=== PATIENT | male | born 1935 | race Caucasian/White ===

== ENCOUNTER 2023-11-22 02:37 | Emergency (ER) | payer MEDICARE, SELFPAY ==
[2023-11-22 02:39] VITALS: BP 168/80; PULSE 55; RESP 17; TEMP 36.9; O2SAT 98; BMI 23.0
--- NOTE | 2023-11-22 03:04 | ED_ITS ---
HPI - Fall General Chief Complaint: Fall Stated Complaint: FALL/HEAD INJURY Time Seen by Provider: 11/22/23 02:48 Source: patient and caregiver Mode of arrival: ambulance Limitations: no limitations History of Present Illness HPI Narrative: 88-year-old male who is not on blood thinners is transferred from the [facility] care facility where he currently resides for evaluation of a head injury. According to the group home report the patient rolled out of bed. The patient arrives with an approximately 2.5 cm vertical laceration on the left side of his forehead. He denies any loss of consciousness. He has no neck pain he does complain of some pain in his sacral region stating that he fell on his buttocks as well. He denies any dizziness. He has not had any slurred speech or confusion. He is in Hospice currently and code status is DNR-CC. According to his family he has been failing cognitively and has lost a great deal of weight. Related Data Allergies Allergy/AdvReac Type Severity Reaction Status Date / Time No Known Drug Allergies Allergy Verified 11/22/23 02:43 Review of Systems ROS Status of ROS 10 or more systems reviewed and unremark able except as noted in history and below Exam Narrative Exam Narrative: Nurses note and vital signs reviewed and patient is not hypoxic. Blood pressure is noted be elevated at 168/80 and his pulses mildly bradycardic at 55 General: The patient appears well and in no apparent distress. Patient is resting comfortably on cart.GCS 15 Skin: Warm, dry, no pallor noted. There is no rash noted. Head: Normocephalic, atraumatic. There is a 2.5 cm somewhat superficial laceration vertically oriented on the left side of the forehead. This does not involve the eyebrows or eyes. Mild active bleeding noted Eye: Normal conjunctiva, no drainage, EOMI. PERRL. Vision is grossly intact. Ears, Nose, Mouth, and Throat: oral mucosa is moist. Nares patent. Mouth without vesicles. Ear canals patent. Tm's without Erythema Neck; no midline bony vertebral tenderness or step off Cardiovascular: Regular Rate and Rhythm S1S2, pulses are brisk and equal bilaterally Respiratory: Patient is in no distress, no accessory muscle use, lungs are clear to auscultation, no wheezing, rales or rhonchi Back: no midline bony vertebral tenderness or step-off, (pt declines to allow me to look at his buttocks or sacrum where he complained of pain) GI: Normal bowel sounds, no tenderness to palpation, no masses appreciated. No rebound, guarding, or rigidity noted. 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 is intact, no facial droop, upper and lower extremity strength and sensation is intact Psychiatric: Cooperative Constitutional Vital Signs, click to edit/add: Last Vital Signs Temp 98.5 F 11/22/23 02:39 Pulse 58 L 11/22/23 04:25 Resp 15 11/22/23 04:25 BP 150/88 H 11/22/23 04:25 Pulse Ox 98 11/22/23 04:25 O2 Del Method Room Air 11/22/23 04:25 Course Vital Signs Vital signs: Vital Signs Temperature 98.5 F 11/22/23 02:39 Pulse Rate 55 L 11/22/23 02:39 Respiratory Rate 17 11/22/23 02:39 Blood Pressure 168/80 H 11/22/23 02:39 Pulse Oximetry 98 11/22/23 02:39 Oxygen Delivery Method Room Air 11/22/23 02:39 Temperature 98.5 F 11/22/23 02:39 Pulse Rate 58 L 11/22/23 04:25 Respiratory Rate 15 11/22/23 04:25 Blood Pressure 150/88 H 11/22/23 04:25 Pulse Oximetry 98 11/22/23 04:25 Oxygen Delivery Method Room Air 11/22/23 04:25 MDM - Fall MDM Narrative Medical decision making narrative: Is 88-year-old male is transferred from the [facility] care facility where he currently resides for evaluation after he fell out of bed and struck his head on a bedside stand. He has an approximately 2.5 cm vertical laceration at the left forehead area. There was no loss of consciousness, vomiting or other additional injury. The patient is a DNR comfort care and hospice. His GCS was 15. CT scan of the brain and cervical spine was ordered per protocol and I reviewed the CT scan of the brain myself. I did not see any acute findings. The family wishes to take him back to the group home once the stitches were complete. I feel this is appropriate as his neuro exam is normal. He does not have any midline bony vertebral cervical spine tenderness. 6 stitches were placed into the laceration with good wound edge approximation and suture care was provided to the patient and family. CT scan of the brain and C spine were reviewed after he was discharged and do not show any acute findings. Medical Records Medical records narrative: The [address] [address] [address] Scan Report Signed Patient: KALYAN HERNANDEZ MR#: [id number] : 1935 Acct:[id number] Age/Sex: 88 / M ADM Date: 11/22/23 Loc: ER Attending Dr: Ordering Physician: Suzie Holloway Date of Service: 11/22/23 Procedure(s): CT head/brain wo con Accession Number(s): [id number] cc: Physician,Non-Staff M.Yvrose~ The [address] [address] Patient Name: KALYAN HERNANDEZ MRN: [id number] date: 1935 Sex: M Assigned Patient Location: ER Current Patient Location: Accession/Order Number: [id number] Exam Date: 11/22/2023 03:18 Report Date: 11/22/2023 05:11 At the request of: SUZIE HOLLOWAY Procedure: CT head/brain wo con EXAM: CT head/brain wo con, CT cervical spine wo con HISTORY: fall, head injury COMPARISON: None. TECHNIQUE: Nonenhanced CT imaging of the head and cervical spine was performed with sagittal and coronal reconstructions. Dose reduction techniques were achieved by using automated exposure control and/or adjustment of mA and/or kV according to patient size and/or use of iterative reconstruction technique. FINDINGS: CT HEAD: No intracranial hemorrhage, edema, mass effect or midline shift is seen. Age-related brain atrophy is noted. Severe nonspecific periventricular lucencies likely reflect chronic small vessel white matter ischemia. 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 The ventricles and extra-axial CSF spaces are unremarkable for age. The calvarium is intact. The paranasal sinuses and mastoid air cells appear clear. A small left frontal scalp hematoma is suggested on image [address] CERVICAL SPINE: No acute osseous or articular abnormality is seen. The cervical vertebral bodies are normal in height and alignment. 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 Skull base alignment is normal. The articular facets are normally aligned. There is multilevel degenerative facet arthrosis and uncovertebral joint hypertrophy resulting in multilevel bilateral neural foraminal narrowing. On the right, neural foraminal stenosis is mild at C3-C4, and fairly severe at C5-C6 and C6-C7. On the left, neural foraminal stenosis is mild at C2-C3 and C4-C5, and is moderately severe at C6-C7. No significant spinal canal stenosis is seen. Cerumen is incidentally noted in the right external auditory canal. Bilateral carotid arterial calcifications are noted. CT/CT head/brain wo con IMPRESSION: 1. Suspected small left frontal scalp hematoma, without underlying calvarial fracture or acute intracranial abnormality. Chronic intracranial findings are described above. 2. No acute cervical spine findings. Chronic changes are described above. Electronically authenticated by: ALVERTO ASIF Date: 11/22/2023 05:11 Discharge Plan Discharge Chief Complaint: Fall Clinical Impression: Sutured skin wound, Closed head injury, Forehead laceration Patient Disposition: Hospice - [facility] Time of Disposition Decision: 03:54 Condition: Good Additional Instructions: Sutures can be removed in 5-7 days. Use topical bacitracin and keep the laceration site covered with a Band-Aid. Discharge Date/Time: 11/22/23 04:25 Procedures ED Procedure Instructions Procedures Procedures: Procedure note: Forehead laceration repair; The patient's laceration was cleaned with Hibiclens and normal saline. The wound edges were infiltrated with 1 percent lidocaine with epinephrine. When anesthesia was obtained 6, 4-0 Ethilon sutures were placed into the laceration with good wound edge approximation. Patient tolerated procedure well. A bacitracin dressing was placed by the nursing staff.
[2023-11-22] MEDS: LIDOCAINE HCL 1%-EPINEPHRINE 1:100,000 10 ML MDV INJ (03:40)
[2023-11-22] MEDS: BACITRACIN OINTMENT 28.4 GM TUBE 1 APPLIC TOPICAL (04:15)
[2023-11-22 04:25] VITALS: BP 150/88; PULSE 58; RESP 15; O2SAT 98
== END 2023-11-22 04:25 | disposition hospice, inpatient (51) ==
PROVIDERS: Emergency Provider Emergency Medicine
DX: S01.81XA Laceration without foreign body of other part of head, initial encounter (principal); Z66 Do not resuscitate; W06.XXXA Fall from bed, initial encounter; S09.8XXA Other specified injuries of head, initial encounter
CPT/HCPCS: 12011; 70450; 72125; 99284

== ENCOUNTER 2024-04-10 09:50 | Emergency (ER) | payer MEDICARE, SELFPAY ==
[2024-04-10 09:55] VITALS: BP 173/80; PULSE 68; TEMP 37.1; O2SAT 99; BMI 19.4
--- NOTE | 2024-04-10 10:01 | CT_ITS ---
The [address] [address] Patient Name: KALYAN HERNANDEZ MRN: [id number] date: 1935 Sex: M Assigned Patient Location: ER Current Patient Location: ER Accession/Order Number: [id number] Exam Date: 04/10/2024 10:12 Report Date: 04/10/2024 11:03 At the request of: EDGAR VINES Procedure: CT head/brain wo con EXAMINATION: CT head/brain wo con HISTORY: Fall laceration after striking top of head COMPARISON: CT head 11/22/2023 TECHNIQUE: Axial CT images were obtained without IV contrast. Dose reduction techniques were achieved by using automated exposure control and/or adjustment of mA and/or kV according to patient size and/or use of iterative reconstruction technique. FINDINGS: BRAIN: No intracranial hemorrhage or mass effect. Stable chronic small vessel ischemic changes, multiple old lacunar infarctions within the basal ganglia bilaterally, and encephalomalacic changes within lower lateral right frontal lobe from remote infarction. CSF SPACES: No hydrocephalus, subarachnoid hemorrhage, or mass. Appropriate for age. SKULL: No fracture, mass, or other significant visible lesion. SINUSES: No significant mucosal thickening or fluid on the limited views. ORBITS: No appreciable abnormality on the limited views. OTHER: Negative CT/CT head/brain wo con IMPRESSION: 1. No intracranial hemorrhage or appreciable acute abnormality. 2. Stable age consistent chronic degenerative changes and sequela of remote small infarctions. 3. No fracture the calvarium or scalp hematoma. Electronically authenticated by: FLACO FULLER Date: 04/10/2024 11:03
--- NOTE | 2024-04-10 10:01 | ED.FALL1 ---
HPI HPI - Fall General Chief Complaint: Fall Stated Complaint: FALL, HEAD INJURY Time Seen by Provider: 04/10/24 10:00 Source: patient and family Mode of arrival: Wheelchair Limitations: physical limitation History of Present Illness HPI Narrative: This patient is here from assisted living. He fell earlier this morning when getting out of bed. His right lower ribs on the side are slightly sore and he also has a injury to the right high parietal area. He had no loss of sense. He says he does not want anything for pain. He is in otherwise pretty good health for 88 years old. He is not on any anticoagulation therapy. He does not have any pain in his neck. He denies any paresis paresthesias tingling or numbness. He is a very good historian. He has not been confused. He is does not have a headache he has not been vomiting. Related Data Allergies Allergy/AdvReac Type Severity Reaction Status Date / Time No Known Drug Allergies Allergy Verified 04/10/24 10:07 Opioid HPI Opioid Management Most Recent Pain and Opioid Data: Last Pain Scale 2 04/10/24 10:07 Exam Narrative Exam Narrative: Patient is awake alert he is a good historian cognition and mentation is excellent for age. He is here with a family member who confirms the information. HEENT examination shows a small nongaping closed wound just to the right of midline at the top of the head. There is no expanding hematoma. He has [place] no discomfort to palpation of the cranium. He has no tenderness or palpation of a pain to palpation of the cervical spine. Cervical range of motion is unrestricted. He has no CSF otorrhea or rhinorrhea. Movement of the trunk torso and extremities is unrestricted. Aggressive palpation of the right ribs shows slight discomfort in the right lateral lower rib cage. There is no crepitation bruising or ecchymosis. Lungs are clear heart sounds are regular. He had no other complaints today. Constitutional Vital Signs, click to edit/add: Last Vital Signs Temp 98.8 F 04/10/24 09:55 Pulse 68 04/10/24 09:55 Resp 16 04/10/24 09:55 BP 173/80 H 04/10/24 09:55 Pulse Ox 99 04/10/24 09:55 O2 Del Method Room Air 04/10/24 09:55 Course Vital Signs Vital signs: Vital Signs Temperature 98.8 F 04/10/24 09:55 Pulse Rate 68 04/10/24 09:55 Respiratory Rate 16 04/10/24 09:55 Blood Pressure 173/80 H 04/10/24 09:55 Pulse Oximetry 99 04/10/24 09:55 Oxygen Delivery Method Room Air 04/10/24 09:55 Temperature 98.8 F 04/10/24 09:55 Pulse Rate 68 04/10/24 09:55 Respiratory Rate 16 04/10/24 09:55 Blood Pressure 173/80 H 04/10/24 09:55 Pulse Oximetry 99 04/10/24 09:55 Oxygen Delivery Method Room Air 04/10/24 09:55 MDM - Fall MDM Narrative Medical decision making narrative: This patient fell today and has a simple scalp laceration that does not require sutures. CT of the head was negative for any acute intracranial process there are chronic changes noted. His rib x-rays did not disclose any pulmonary findings or obvious rib injury. He stays at assisted living. He is here with family member. I believe he does not have an emergency medical condition today Discharge Plan Discharge Stand Alone Forms: Portal Instructions Chief Complaint: Fall Clinical Impression: Closed head injury Patient Disposition: Home, Self-Care Time of Disposition Decision: 11:12 Print Language: Ghanaian Additional Instructions: Ice to the scalp area/may have Tylenol. Topical antibiotic ointment to the scalp Referrals: Physician,Non-Staff, MD [Primary Care Provider] - 1 week
--- NOTE | 2024-04-10 10:02 | XR_ITS ---
The [address] [address] Patient Name: KALYAN HERNANDEZ MRN: [id number] date: 1935 Sex: M Assigned Patient Location: ER Current Patient Location: ER Accession/Order Number: [id number] Exam Date: 04/10/2024 10:12 Report Date: 04/10/2024 10:57 At the request of: EDGAR VINES Procedure: XR ribs RT min 3V w CXR1V EXAMINATION: XR ribs RT min 3V w CXR1V HISTORY: Fall/rib pain , right rib pain COMPARISON: XR chest 11/01/2022 FINDINGS: LUNGS: No significant pulmonary parenchymal abnormalities. PLEURA: No pneumothorax, effusion, or pleural thickening. MEDIASTINUM: No visible mass or adenopathy. CARDIAC: No cardiomegaly or cardiac silhouette abnormality. RIBS: Normal. No significant arthropathy or acute abnormality. OTHER: Negative. XR/XR ribs RT min 3V w CXR1V IMPRESSION: 1. No acute cardiopulmonary process. 2. No appreciable rib fracture. Electronically authenticated by: FLACO FULLER Date: 04/10/2024 10:57
--- OUTSIDE RECORDS SUMMARY | 2024-04-10 10:12 | XMS_ITS | CCD ---
Author Organization [facility] Care Team Providers Care Airset Molder Name Role Phone SHIRA STRICKLAND Primary Care Unavailable AUGIE MISHRA Consulting Unavaila ble MISHRA, AUGIE POWELL Admitting Unavaila ble MISHRAAUGIE Attending Unavaila ALVARO Amador Consulting Unavailable SAVANNAH LOZANO Consulting Unavailable JAYJAY MUNIZ Consulting Unavailable NEHEMIAS FRITZ Consulting Unavailable GENTRY VILLARREAL Admitting Unavailable GENTRY VILLARREAL Attending Unavailable VAISHALI SNOW Referring Unavailable SHIRA STRICKLAND Primary Care Unavailable ADRYAN GILBERTMA Lashawn Consulting Unavailable AUGIE MISHRA Consulting Unavaila ANGÉLICA Hand Consulting Unavailable ORLANDO, PRECIOUS S Consulting Unavailable AURELIO MÉNDEZ Attending Unavailable SHIRA STRICKLAND Primary Care Unavailable VAISHALI SNOW Attending Unavailable SHIRA STRICKLAND Primary Care Unavailable VAISHALI SNOW Attending Unavailable Shria Strickland Primary Care Unavailable Chato Mendes MD Admitting Unavailable Chato Mendes MD Attending Unavailable Shira Strickland Primary Care Unavailable Chato Mendes MD Admitting Unavailable Chato Mendes MD Attending Unavailable DR PIYUSH VIDALES Consulting Unavailable FLASH, DR PICKETT Admitting Unavailable REQUEST, NONE LISTED Primary Care Unavailvianey VIDALES, DR PICKETT Attending Unavailable ISA ROA Consulting Unavailable FLACO CHAIREZ Consulting Unavailable ELISSA CRUZ Consulting Unavailable TOM MCKINLEY Consulting Unavailable ANGELINE WESTON Referring Unavailable SHIRA STRICKLAND Primary Care Unavailable SHIRA STRICKLAND Primary Care Unavailable ANGELINE WESTON Attending Unavailable JOY MAYA Attending Unavailable JOY MAYA Referring Unavailable SHIRA STRICKLAND Primary Care Unavailable JOY MAYA Attending Unavailable JOY MAYA Referring Unavailable SHIRA STRICKLAND Primary Care Unavailable Problems Problem Classification Problem Date Documented Da te Episodic/Chronic Chronic kidney disease (1 source) Chronic kidney disease, stage 1; Translations: [CHRONIC KIDNEY DISEASE STAGE 1] Onset: 11-13-2022 Chronic Deficiency and other anemia (1 source) Iron deficiency anemia, unspecified; Translations: [IRON DEFICIENCY ANEMIA UNSPECIFIED] Onset: 11-13-2022 Episodic Disorders of lipid metabolism (1 source) Hyperlipidemia, unspecified; Translations: [HYPERLIPIDEMIA UNSPECIFIED] Onset: 11-13-2022 Chronic E Codes: Fall (1 source) Fall Onset: 02-06-2024 Fever of unknown origin (1 source) Fever, unspecified; Translations: [Fever, unspecified] Onset: 02-06-2024 Episodic Hyperplasia of prostate (1 source) Benign prostatic hyperplasia without lower urinary tract symptoms; Translations: [BENIGN PROSTATIC HYPRPLASIA WO LUTS] Onset: 11-13-2022 Chronic Hypertension with complications and secondary hypertension (1 source) Hypertensive chronic kidney disease with stage 1 through stage 4 chronic kidney disease, or unspecified chronic kidney disease; Translations: [HTN CKD W/STAGE 1-4 CKD/UNS CKD] Onset: 11-13-2022 Chronic Other aftercare (1 source) 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; Translations: [SLIP 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 CURRENT USE OF ASPIRIN] Onset: 11-13-2022 Episodic Other circulatory disease (1 source) Personal history of transient ischemic attack (TIA), and cerebral infarction without residual deficits; Translations: [PERS HX TIA AND CI NO RESID DEFICIT] Onset: 11-13-2022 Episodic Other lower respiratory disease (1 source) Hypoxemia; Translations: [HYPOXEMIA] Onset: 11-13-2022 Episodic Other lower respiratory disease (1 source) Acute respiratory distress; Translations: [ACUTE RESPIRATORY DISTRESS] Onset: 11-13-2022 Episodic Pneumonia (except that caused by tuberculosis or sexually transmitted disease) (1 source) Pneumonia, unspecified organism; Translations: [Pneumonia, unspecified organism] Onset: 02-06-2024 Episodic Pneumonia (except that caused by tuberculosis or sexually transmitted disease) (1 source) Pneumonia (except that caused by tuberculosis or sexually transmitted disease); Translations: [PNEUMONIA D/T CORONAVIRUS DIS 2019] Onset: 11-13-2022 Respiratory failure; insufficiency; arrest (adult) (1 source) Acute respiratory failure with hypoxia; Translations: [Acute respiratory failure with hypoxia] Onset: 02-06-2024 Episodic Unclassified (1 source) EMS Onset: 02-06-2024 Viral infection (4 sources) COVID-19; Translations: [COVID-19] Onset: 11-01-2022 Results Test Name Value Interpretation Reference Range Facility BLOOD CULTUREon 02-06-2024 Bacteria identified Aer cx Nom (Bld) SPECIMEN NOTES ONLY AEROBIC BOTTLE RECEIVED, SUBOPTIMAL VOLUME OF BLOOD COLLECTED, RESULTS MAY BE AFFECTED SUBOPTIMAL VOLUME OF BLOOD COLLECTED, RESULTS MAY BE AFFECTED. CULTURE RESULTS NO GROWTH 5 DAYS Normal [facility] Comment on above: Performed By: #### C BCA, CMP, 71849-2, 71642-0, 2157-6, 45769- 9, 2639-3, 03827-0 #### [facility] ([id number]) [address] [place] [address] Bacteria identified Aer cx Nom (Bld) SPECIMEN NOTES SUBOPTIMAL VOLUME OF BLOOD COLLECTED, RESULTS MAY BE AFFECTED. CULTURE RESULTS NO GROWTH 5 DAYS Normal [facility] Comment on above: Performed By: #### C BCA, CMP, 22715-3, 40279-3, 2157-6, 62393- 9, 2639-3, 10732-5 #### [facility] ([id number]) [address] [place] [address] 10842 CBC AND AUTO DIFFon 02-06-20 24 Band form neutrophils/100 WBC (Bld) 23.0 % Normal [facility] Comment on above: Performed By: #### C BCA, CMP, 58629-9, 77344-1, 2157-6, 60625- 9, 2639-3, 41142-3 #### [facility] ([id number]) [address] [place] [address] 66653 Erythrocyte distribution width (RBC) [Ratio] 13.9 % Normal 11.5-15.0 [facility] Comment on above: Performed By: #### C BCA, CMP, 04940-3, 87049-4, 2157-6, 57572- 9, 2639-3, 52645-1 #### [facility] ([id number]) [address] [place] [address] 13974 Hematocrit (Bld) [Volume fraction] 32.4 % Low 39-49 [facility] Comment on above: Performed By: #### C BCA, CMP, 29235-4, 47920-4, 2157-6, 89321- 9, 2639-3, 21790-9 #### [facility] ([id number]) [address] [place] [address] 12447 Hemoglobin (Bld) [Mass/Vol] 11.1 g/dL Low 13.0-17.0 [facility] Comment on above: Performed By: #### C BCA, CMP, 90789-9, 49323-8, 2157-6, 18745- 9, 2639-3, 49035-4 #### [facility] ([id number]) [address] [place] [address] 41522 LYMPHOCYTE, ATYPICAL 1.0 % Normal [facility] Comment on above: Performed By: #### C BCA, CMP, 96999-3, 71309-1, 2157-6, 74285- 9, 2639-3, 96768-1 #### [facility] ([id number]) [address] [place] [address] 73274 Lymphocytes (Bld) [#/Vol] 0.6 10*3/uL Low 1.0-3.5 [facility] Comment on above: Performed By: #### C BCA, CMP, 71497-1, 54451-6, 2157-6, 90344- 9, 2639-3, 26579-1 #### [facility] ([id number]) [address] [place] [address] 69666 Lymphocytes/100 WBC (Bld) 5.0 % Normal [facility] Comment on above: Performed By: #### C BCA, CMP, 19742-9, 56282-4, 2157-6, 44000- 9, 2639-3, 11391-5 #### [facility] ([id number]) [address] [place] [address] 24180 MCH (RBC) [Entitic mass] 30.9 pg Normal 27-34 [facility] Comment on above: Performed By: #### C BCA, CMP, 34165-0, 53642-9, 2157-6, 02264- 9, 2639-3, 88372-8 #### [facility] ([id number]) [address] [place] [address] 68709 MCHC (RBC) [Mass/Vol] 34.3 g/dL Normal 32-36 [facility] Comment on above: Performed By: #### C BCA, CMP, 57717-9, 88039-3, 2157-6, 04918- 9, 2639-3, 60012-7 #### [facility] ([id number]) [address] [place] [address] 35364 MCV (RBC) [Entitic vol] 90 fL Normal 80-100 [facility] Comment on above: Performed By: #### C BCA, CMP, 58064-5, 12110-9, 2157-6, 95337- 9, 2639-3, 25119-5 #### [facility] ([id number]) [address] [place] [address] 32599 Monocytes (Bld) [#/Vol] 0.4 10*3/uL Normal 0-0.9 [facility] Comment on above: Performed By: #### C BCA, CMP, 86111-2, 15904-2, 2157-6, 96076- 9, 2639-3, 76982-9 #### [facility] ([id number]) [address] [place] [address] 99845 Monocytes/100 WBC (Bld) 4.0 % Normal [facility] Comment on above: Performed By: #### C BCA, CMP, 58839-3, 24601-8, 2157-6, 12265- 9, 2639-3, 43502-4 #### [facility] ([id number]) [address] [place] [address] 02460 Neutrophils (Bld) [#/Vol] 8.2 10*3/uL High 1.5-6.6 [facility] Comment on above: Performed By: #### C BCA, CMP, 28131-8, 65662-9, 2157-6, 21897- 9, 2639-3, 50613-5 #### [facility] ([id number]) [address] [place] [address] 22482 OVALOCYTE 1+ Abnormal NONE [facility] Comment on above: Performed By: #### C BCA, CMP, 97794-8, 96864-8, 2157-6, 60757- 9, 2639-3, 73276-2 #### [facility] ([id number]) [address] [place] [address] 24980 Platelet mean volume (Bld) [Entitic vol] 8.1 fL Normal 7-12 [facility] Comment on above: Performed By: #### C BCA, CMP, 85417-7, 19784-3, 2157-6, 21822- 9, 2639-3, 40746-8 #### [facility] ([id number]) [address] [place] [address] 43779 Platelets (Bld) [#/Vol] 244 10*3/uL Normal 150-450 [facility] Comment on above: Performed By: #### C BCA, CMP, 58972-8, 32105-8, 2157-6, 11047- 9, 2639-3, 36011-6 #### [facility] ([id number]) [address] [place] [address] 55978 RBC COUNT 3.60 X10E12/L Low 4.10-5.70 [facility] Comment on above: Performed By: #### C BCA, CMP, 46475-6, 95314-1, 2157-6, 22396- 9, 2639-3, 46908-4 #### [facility] ([id number]) [address] [place] [address] 49353 SEG NEUTROPHIL 67.0 % Normal [facility] Comment on above: Performed By: #### C BCA, CMP, 50470-3, 55068-5, 2157-6, 40002- 9, 2639-3, 11646-5 #### [facility] ([id number]) [address] [place] [address] 86780 WBC (Bld) [#/Vol] 9.2 10*3/uL Normal 4.0-11.0 [facility] Comment on above: Performed By: #### C BCA, CMP, 25307-9, 04330-6, 2157-6, 65797- 9, 2639-3, 86549-0 #### [facility] ([id number]) [address] [place] [address] 99944 CK [Catalytic activity/Vol]o n 02-06-2024 CPK 89 U/L Normal 24-195 [facility] Comment on above: Performed By: #### C BCA, CMP, 91130-3, 02324-1, 2157-6, 80205- 9, 2639-3, 02925-4 #### [facility] ([id number]) [address] [place] [address] 89688 COMPREHENSIVE METABOLIC PANE Kam 02-06-2024 Albumin [Mass/Vol] 3.8 g/dL Normal 3.2-5.3 [facility] Comment on above: Performed By: #### C BCA, CMP, 80946-5, 37664-4, 2157-6, 47909- 9, 2639-3, 43529-9 #### [facility] ([id number]) [address] [place] [address] 45900 ALP [Catalytic activity/Vol] 52 U/L Normal 39-130 [facility] Comment on above: Performed By: #### C BCA, CMP, 39168-8, 78093-1, 2157-6, 89406- 9, 2639-3, 17513-5 #### [facility] ([id number]) [address] [place] [address] 98993 ALT [Catalytic activity/Vol] 20 U/L Normal 0-40 [facility] Comment on above: Performed By: #### C BCA, CMP, 44086-3, 49643-1, 2157-6, 32928- 9, 2639-3, 86611-8 #### [facility] ([id number]) [address] [place] [address] 51985 Anion gap [Moles/Vol] 9 mmol/L Normal 5-15 [facility] Comment on above: Performed By: #### C BCA, CMP, 27867-3, 78506-3, 2157-6, 75472- 9, 2639-3, 29523-1 #### [facility] ([id number]) [address] [place] [address] 63800 AST [Catalytic activity/Vol] 28 U/L Normal 0-41 [facility] Comment on above: Performed By: #### C BCA, CMP, 12588-5, 63796-1, 2157-6, 60467- 9, 2639-3, 11660-0 #### [facility] ([id number]) [address] [place] [address] 38442 Bilirubin [Mass/Vol] 1.2 mg/dL Normal 0.3-1.2 [facility] Comment on above: Performed By: #### C BCA, CMP, 06065-6, 67913-5, 2157-6, 83269- 9, 2639-3, 86155-7 #### [facility] ([id number]) [address] [place] [address] 54352 Calcium [Mass/Vol] 8.2 mg/dL Low 8.5-10.5 [facility] Comment on above: Performed By: #### C BCA, CMP, 14968-7, 88445-8, 2157-6, 17347- 9, 2639-3, 25706-0 #### [facility] ([id number]) [address] [place] [address] 01060 Chloride [Moles/Vol] 106 mmol/L Normal 98-109 [facility] Comment on above: Performed By: #### C BCA, CMP, 52308-2, 57880-0, 2157-6, 21380- 9, 2639-3, 57051-1 #### [facility] ([id number]) [address] [place] [address] 98634 CO2 [Moles/Vol] 24 mmol/L Normal 22-32 [facility] Comment on above: Performed By: #### C BCA, CMP, 43117-5, 27714-4, 2157-6, 66380- 9, 2639-3, 74768-3 #### [facility] ([id number]) [address] [place] [address] 74520 Creatinine [Mass/Vol] 1.39 mg/dL High 0.70-1.20 [facility] Comment on above: Result Comment: METH OD TRACEABLE TO IDMS STANDARD Performed By: #### C BCA, CMP, 72080-0, 14108-0, 2157-6, 17506-4, 2639-3, 59254-1 #### [facility] ([id number]) [address] [place] [address] 27468 GFR/1.73 sq M.predicted among non-blacks MDRD (S/P/Bld) [Vol rate/Area] 49 mL/min/{1.73_m2} Low >59 [facility] Comment on above: Result Comment: Reported eGFR is based on the CKD-EPI 2020 equation that does not use a race coefficient. Performed By: #### C BCA, CMP, 18284-4, 33138-8, 2157-6, 31664-2, 2639-3, 31928-9 #### [facility] ([id number]) [address] [place] [address] 17196 Glucose [Mass/Vol] 127 mg/dL High 65-99 [facility] Comment on above: Performed By: #### C BCA, CMP, 87018-5, 54553-8, 2157-6, 30580- 9, 2639-3, 19568-3 #### [facility] ([id number]) [address] [place] [address] 08656 Potassium [Moles/Vol] 3.9 mmol/L Normal 3.5-5.0 [facility] Comment on above: Performed By: #### C BCA, CMP, 33913-0, 48332-8, 2157-6, 92949- 9, 2639-3, 03349-0 #### [facility] ([id number]) [address] [place] [address] 74542 Protein [Mass/Vol] 6.8 g/dL Normal 6.0-8.0 [facility] Comment on above: Performed By: #### C BCA, CMP, 09985-7, 66463-6, 2157-6, 24149- 9, 2639-3, 01956-4 #### [facility] ([id number]) [address] [place] [address] 05289 Sodium [Moles/Vol] 139 mmol/L Normal 134-146 [facility] Comment on above: Performed By: #### C BCA, CMP, 92590-1, 48845-5, 2157-6, 98749- 9, 2639-3, 88656-0 #### [facility] ([id number]) [address] [place] [address] Urea nitrogen [Mass/Vol] 28 mg/dL High 5-27 [facility] Comment on above: Performed By: #### C BCA, [facility], 71160-4, 12902-8, 2157-6, 00843- 9, 2639-3, 02030-6 #### [facility] ([id number]) [address] [place] [address] BRAIN WO CONTon 4 CT BRAIN WO CONT CT BRAIN WO CONT Exam: CT brain without contrast. CLINICAL HISTORY: Fall, pain TECHNIQUE: CT brain without intravenous contrast. COMPARISON: None FINDINGS: Mild cerebral atrophy. Patchy and confluent periventricular hypodensity, consistent with small vessel ischemic changes. There is no evidence of acute intracranial bleeding, mass effect, or CT evidence of acute ischemia/infarct. The midline structures are intact, no midline shift. The ventricles and basal cisterns are within normal limits. The brainstem and cerebellum are unremarkable. The visualized intraorbital contents are unremarkable. Mucosal thickening or retention polyps within the bilateral maxillary sinuses, otherwise the paranasal sinuses and mastoid air cells are well aerated. No acute osseous abnormality in the visualized skull base and calvarium. IMPRESSION: No acute intracranial pathology. Chronic small vessel ischemic changes. All CT scans at this facility use dose modulation, iterative reconstruction, and/or weight based dosing when appropriate to reduce radiation dose to as low as reasonably achievable. Finalized by Jose Gotti on 02/06/2024 11:31 AM Normal [facility] CT CERVICAL SPINE WO CONTon 02-06-2024 CT CERVICAL SPINE WO CONT CT CERVICAL SPINE WO CONT CLINICAL INFORMATION: Fall with neck pain. Cervical spine pain.. PROCEDURE: Routine cervical spine protocol CT was obtained without intravenous contrast. Sagittal and coronal reformatted images were obtained from the axial data. Automated exposure control was utilized. All CT scans at this facility dose modulation, iterative reconstruction, and/or weight based dosing when appropriate to reduce radiation dose to as low as reasonably achievable. FINDINGS: Anterolisthesis of C7 upon T1 measuring 4 mm. The vertebral body heights are preserved. No fracture. Severe degenerative changes at C3-C4, C4-C5, C5-C6, and C6-C7 with intervertebral disc space narrowing and osteophyte formation. The atlantoaxial space is intact with degenerative sclerosis. The posterior elements are intact with facet hypertrophy. Partially visualized lung apices are unremarkable. No acute findings in the soft tissues. IMPRESSION: 1. No acute osseous abnormalities in the cervical spine. 2. Anterolisthesis C7 upon T1 measuring 4 mm. 3. Severe multifocal degenerative changes as above. Finalized by Antwon Bain MD on 02/06/2024 11:57 AM Normal [facility] Lactate (P elba) [Moles/Vol]o n 02-06-2024 Lactate [Moles/Vol] 3.7 mmol/L High 0.4-2.0 [facility] Comment on above: Performed By: #### C MARBELLA MOTA, 04870-5, 11451-6, 2157-6, 94782- 9, 2639-3, 43249-6 #### [facility] ([id number]) [address] [place] [address] 39247 LACTATE W/REFLEX 3.3 mmol/L High 0.4-2.[address] [facility] Comment on above: Performed By: #### C MARBELLA MOTA, 37502-7, 42397-1, 2157-6, 40369- 9, 2639-3, 33925-3 #### [facility] ([id number]) [address] [place] [address] 76292 MAGNESIUMon 02-06-2024 Magnesium [Mass/Vol] 2.0 mg/dL Normal 1.8-2.6 [facility] Comment on above: Performed By: #### C NAKUL, CMP, 35392-4, 39963-9, 2157-6, 45412- 9, 2639-3, 36155-0 #### [facility] ([id number]) [address] [place] [address] 50279 Myoglobin [Mass/Vol]on 02-05 SERUM MYOGLOBIN 101.1 ng/mL Normal 17.4-105.[address] [facility] Comment on above: Performed By: #### C BCA, CMP, 07388-4, 59360-4, 2157-6, 92016- 9, 2639-3, 23208-2 #### [facility] ([id number]) [address] [place] [address] Natriuretic peptide B [Mass/ Vol]on 02-06-2024 Natriuretic peptide B (Bld) [Mass/Vol] 433 pg/mL High <100.0 [facility] Comment on above: Performed By: #### C BCA, CMP, 24798-2, 27565-0, 2157-6, 71368- 9, 2639-3, 11678-0 #### [facility] ([id number]) [address] [place] [address] SARS/FLU A+B/RSV by NAAT/Mol ecularon 02-06-2024 SARS/FLU A+B/RSV by NAAT/Molecular FLU A PCR Negative (qualifier value) FLU B PCR Negative (qualifier value) RSV by PCR Negative (qualifier value) SARS CoV 2 Detected (qualifier value) NOTE The Xpert Xpress SARS-CoV-2/Flu/RSV Plus test is a rapid, multiplexed real-time RT-PCR test intended for the simultaneous qualitative detection and differentiation of SARS-CoV-2, influenza A, influenza B and respiratory syncytial virus (RSV) viral RNA from individuals suspected of respiratory viral infection consistent with COVID-19 by their healthcare provider. This test has not been validated in asymptomatic patients. The Xpert Xpress SARS-CoV-2 test is intended for use by qualified and trained operators who are performing tests using either [employer] or [employer] systems and is limited to laboratories that meet the CLIA requirements to perform high and moderate complexity tests. The Xpert Xpress SARS-CoV-2/Flu/RSV Plus is only for use under the Food and Drug Administration's Emergency Use Authorization. Results are for the simultaneous detection and differentiation of SARS-CoV-2, influenza A, influenza B and RSV nucleic acids in clinical specimens. SARS-CoV-2, influenza A, influenza B and RSV RNA identified by this test are generally detectable in upper respiratory samples during the acute phase of infection. Positive results are indicative of the presence of the identified virus, but do not rule out bacterial infection or co-infection with other pathogens not detected by this test. Clinical correlation with patient history and other diagnostic information is necessary to determine patient infection status. The agent detected may not be the definite cause of disease. Negative results do not preclude SARS-CoV-2, influenza A, influenza B and RSV infection and should not be used as the sole basis for treatment or other patient management decisions. Negative results must be combined with clinical observations, patient history and epidemiological information. An Invalid result may occur with specimen-associated inhibition unable to be resolved with specimen repeat. Fact Sheet for Healthcare Providers: https://www.fda.gov/media /616334/download Fact Sheet for Patients: https://www.fda.gov/media /493586/download Normal [facility] Comment on above: Performed By: #### C NAKUL, CMP, 99139-5, 77251-1, 2157-6, 06801- 9, 2639-3, 54965-5 #### [facility] ([id number]) [address] [place] [address] 97288 TROPONIN Ion 02-06-2024 Troponin I.cardiac [Mass/Vol] 0.01 ng/mL Normal 0.00-0.04 [facility] Comment on above: Performed By: #### C NAKUL, CMP, 23606-4, 90718-2, 2157-6, 83374- 9, 2639-3, 14354-1 #### [facility] ([id number]) [address] [place] [address] 91014 XR CHEST 2 VWSon 02-06-2024 XR CHEST 2 VWS XR CHEST 2 VWS PA and lateral chest: HISTORY: Cough. Fever. 2 views of the chest are obtained. There is right lower lobe infiltrate noted. Right costophrenic angle is slightly blunted. No pneumothorax. Cardiac and mediastinal contours are within normal limits. IMPRESSION: Right lower lobe infiltrate. Finalized by Gold Smith MD on 02/06/2024 11:37 AM Normal [facility] XR PELVIS 1 OR 2 VWSon 02-05 XR PELVIS 1 OR 2 VWS XR PELVIS 1 OR 2 VWS CLINICAL INFORMATION: Pain post trauma. TECHNIQUE: XR PELVIS 1 OR 2 VWS Single view of the pelvis was obtained. Femoral necks are symmetric. Pelvic ring appears intact. No acute fracture identified. IMPRESSION: Negative exam. Finalized by Gold Smith MD on 02/06/2024 11:41 AM Normal [facility] CBC AUTO DIFFon 11-03-2022 BASO # 0.0 103/ul Normal 0.0-0.1 [facility] Comment on above: Performed By: #### C BC #### [facility] [address] [address] [address] Brooke Wylie Basophils/100 WBC (Bld) 0.0 % Critically low 0.2-2.0 [facility] Comment on above: Performed By: #### C BC #### [facility] [address] [address] [address] Brooke Wylie EO # 0.0 103/ul Normal 0.0-0.7 [facility] Comment on above: Performed By: #### C BC #### [facility] [address] [address] [address] Brooke Wylie Eosinophils/100 WBC (Bld) 0.0 % Critically low 0.9-7.0 [facility] Comment on above: Performed By: #### C BC #### [facility] [address] [address] [address] Brooke Wylie Erythrocyte distribution width (RBC) [Ratio] 13.5 % Normal 11.0-15.0 [facility] Comment on above: Performed By: #### C BC #### [facility] [address] [address] [address] Brooke Wylie Hematocrit (Bld) [Volume fraction] 28.8 % Critically low 42.0-54.0 [facility] Comment on above: Performed By: #### C BC #### [facility] [address] [address] [address] Brooke Wylie Hemoglobin (Bld) [Mass/Vol] 9.5 g/dL Critically low 14.0-18.0 [facility] Comment on above: Performed By: #### C BC #### [facility] [address] [place] [address] Dr. Brooke Wylie IG # 0.02 10e3/ul Normal 0.00-0.03 [facility] Comment on above: Performed By: #### C BC #### [facility] [address] [place] [address] Dr. Brooke Wylie IG % 0.2 % Normal 0.0-0.5 [facility] Comment on above: Performed By: #### C BC #### [facility] [address] [place] [address] Dr. Brooke Wylie LYMPH # 0.9 103/ul Critically low 1.2-3.8 [facility] Comment on above: Performed By: #### C BC #### [facility] [address] [place] [address] Dr. Brooke Wylie Lymphocytes/100 WBC (Bld) 10.0 % Critically low 20.5-60.0 [facility] Comment on above: Performed By: #### C BC #### [facility] [address] [place] [address] Dr. Brooke Wylie MANUAL DIFF REQ NO Normal [facility] Comment on above: Performed By: #### C BC #### [facility] [address] [place] [address] Dr. Brooke Wylie MCH (RBC) [Entitic mass] 29.5 pg Normal 25.9-34.0 [facility] Comment on above: Performed By: #### C BC #### [facility] [address] [place] [address] Dr. Brooke Wylie MCHC (RBC) [Mass/Vol] 33.0 g/dL Normal 29.9-35.2 [facility] Comment on above: Performed By: #### C BC #### [facility] [address] [place] [address] Dr. Brooke Wylie MCV (RBC) [Entitic vol] 89.4 fL Normal 80.0-94.0 [facility] Comment on above: Performed By: #### C BC #### [facility] [address] [address] [address] Brooke Wylie MONO # 0.8 103/ul Normal 0.3-0.8 [facility] Comment on above: Performed By: #### C BC #### [facility] [address] [address] [address] Brooke Wylie Monocytes/100 WBC (Bld) 8.9 % Normal 1.7-12.0 [facility] Comment on above: Performed By: #### C BC #### [facility] [address] [address] [address] Brooke Wylie NEUT # 7.2 103/ul Critically high 1.4-6.5 [facility] Comment on above: Performed By: #### C BC #### [facility] [address] [place] [address] Dr. Brooke Wylie Neutrophils/100 WBC (Bld) 80.9 % Critically high 43.0-75.0 [facility] Comment on above: Performed By: #### C BC #### [facility] [address] [place] [address] Dr. Brooke Wylie Platelet mean volume (Bld) [Entitic vol] 10.5 fL Normal 9.5-13.5 [facility] Comment on above: Performed By: #### C BC #### [facility] [address] [place] [address] Dr. Brooke Wylie PLT 264 103/ul Normal 150-450 [facility] Comment on above: Performed By: #### C BC #### [facility] [address] [place] [address] Dr. Brooke Wylie RBC 3.22 106/ul Critically low 4.70-6.10 [facility] Comment on above: Performed By: #### C BC #### [facility] [address] [address] [address] Brooke Wylie WBC 9.0 103/ul Normal 4.0-11.0 [facility] Comment on above: Performed By: #### C BC #### [facility] [address] [address] [address] Brooke Wylie POINT OF CARE GLUCOSEon 12-0 Glucose [Mass/Vol] 123 mg/dL Critically high 74-[address] [facility] Comment on above: Performed By: #### P OCGLUC #### [facility] [address] [address] [address] Brooke Wylie PROF CHEM 8 (BAS METB)on Anion gap [Moles/Vol] 12.0 mmol/L Normal [facility] Comment on above: Performed By: #### B MP #### [facility] [address] [address] [address] Brooke Wylie Calcium [Mass/Vol] 8.4 mg/dL Critically low 8.5-10.1 [facility] Comment on above: Performed By: #### B MP #### [facility] [address] [address] [address] Brooke Wylie Chloride [Moles/Vol] 102 mmol/L Normal 98-107 [facility] Comment on above: Performed By: #### B MP #### [facility] [address] [address] [address] Brooke Wylie CO2 [Moles/Vol] 25.8 mmol/L Normal 21.0-32.0 [facility] [place] Comment on above: Performed By: #### B MP #### [facility] [address] [address] [address] Brooke Wylie Creatinine [Mass/Vol] 1.22 mg/dL Normal 0.70-1.30 [facility] Comment on above: Performed By: #### B MP #### [facility] [address] [address] [address] Brooke Wylie EGFR-AF IRISH >60 Normal >=60 [facility] [place] Comment on above: Performed By: #### B MP #### [facility] [address] [place] [address] Dr. Brooke Wylie EGFR-NON AF IRISH 56 mL/min/1.73m2 Critically low >=60 [facility] Comment on above: Performed By: #### B MP #### [facility] [address] [address] [address] Brooke Wylie Glucose [Mass/Vol] 118 mg/dL Critically high 74-[address] [facility] Comment on above: Performed By: #### B MP #### [facility] [address] [address] [address] Brooke Wylie Potassium [Moles/Vol] 3.8 mmol/L Normal 3.5-5.1 [facility] Comment on above: Performed By: #### B MP #### [facility] [address] [address] [address] Brooke Wylie Sodium [Moles/Vol] 136 mmol/L Normal 136-145 [facility] Comment on above: Performed By: #### B MP #### [facility] [address] [place] [address] Dr. Brooke Wylie Urea nitrogen [Mass/Vol] 29.0 mg/dL Critically high 7.0-18.0 [facility] Comment on above: Performed By: #### B MP #### [facility] [address] [place] [address] Dr. Brooke Wylie Urea nitrogen/Creatinin e [Mass ratio] 23.8 mg/mg Normal [facility] Comment on above: Performed By: #### B MP #### [facility] [address] [place] [address] Dr. Brooke Wylie CBC W MANUAL DIFFon 11-02-20 22 ACANTHOCYTES SLIGHT Normal [facility] Comment on above: Performed By: #### C BC #### [facility] [address] [place] [address] Dr. Brooke Wylie ATYPICAL LYMPH # Normal [facility] Comment on above: Performed By: #### C BC #### [facility] [address] [place] [address] Dr. Brooke Wylie ATYPICAL LYMPH % Normal [facility] Comment on above: Performed By: #### C BC #### [facility] [address] [place] [address] Dr. Brooke Wylie BAND # 0.0 103/ul Normal 0.0-0.3 [facility] Comment on above: Performed By: #### C BC #### [facility] [address] [place] [address] Dr. Brooke Wylie BAND % 0 % Normal 0-5 [facility] Comment on above: Performed By: #### C BC #### [facility] [address] [place] [address] Dr. Brooke Wylie BASOM # 0.00 103/ul Normal 0.00-0.10 [facility] Comment on above: Performed By: #### C BC #### [facility] [address] [place] [address] Dr. Brooke Wylie BASOM % 0.0 % Critically low 0.2-2.0 [facility] Comment on above: Performed By: #### C BC #### [facility] [address] [place] [address] Dr. Brooke Wylie BLAST # Normal [facility] Comment on above: Performed By: #### C BC #### [facility] [address] [place] [address] Dr. Brooke Wylie BLAST % Normal [facility] Comment on above: Performed By: #### C BC #### [facility] [address] [place] [address] Dr. Brooke Wylie CORRECTED WBC Normal 4.0-11.0 [facility] Comment on above: Performed By: #### C BC #### [facility] [address] [place] [address] Dr. Brooke Wyile EOS # 0.00 103/ul Normal 0.00-0.70 [facility] Comment on above: Performed By: #### C BC #### [facility] [address] [place] [address] Dr. Brooke Wylie EOS% 0.0 % Critically low 0.9-7.0 [facility] Comment on above: Performed By: #### C BC #### [facility] [address] [place] [address] Dr. Brooke Wylie HCT 29.7 % Critically low 42.0-54.0 [facility] Comment on above: Performed By: #### C BC #### [facility] [address] [address] [address] Brooke Wylie HGB 9.8 g/dl Critically low 14.0-18.0 [facility] Comment on above: Performed By: #### C BC #### [facility] [address] [address] [address] Brooke Wylie LYMPHM # 1.21 103/ul Normal 1.20-3.80 [facility] Comment on above: Performed By: #### C BC #### [facility] [address] [place] [address] Dr. Brooke Wylie LYMPHM% 11.0 % Critically low 20.5-60.0 [facility] Comment on above: Performed By: #### C BC #### [facility] [address] [place] [address] Dr. Brooke Wylie MCH 30.1 pg Normal 25.9-34.0 [facility] Comment on above: Performed By: #### C BC #### [facility] [address] [place] [address] Dr. Brooke Wylie MCHC 33.0 g/dl Normal 29.9-35.2 [facility] Comment on above: Performed By: #### C BC #### [facility] [address] [place] [address] Dr. Brooke Wylie MCV 91.1 fL Normal 80.0-94.0 [facility] Comment on above: Performed By: #### C BC #### [facility] [address] [place] [address] Dr. Brooke Wylie METAMYELOCYTE # Normal [facility] Comment on above: Performed By: #### C BC #### [facility] [address] [place] [address] Dr. Brooke Wylie METAMYELOCYTE % Normal [facility] Comment on above: Performed By: #### C BC #### [facility] [address] [place] [address] Dr. Brooke Wylie MONOM# 0.99 103/ul Critically high 0.30-0.80 [facility] [place] Comment on above: Performed By: #### C BC #### [facility] [address] [place] [address] Dr. Brooke Wlyie MONOM% 9.0 % Normal 1.7-12.0 [facility] Comment on above: Performed By: #### C BC #### [facility] [address] [place] [address] Dr. Brooke Wylie MPV 10.9 fL Normal 9.5-13.5 [facility] Comment on above: Performed By: #### C BC #### [facility] [address] [place] [address] Dr. Brooke Wylie MYELOCYTE # Normal [facility] Comment on above: Performed By: #### C BC #### [facility] [address] [place] [address] Dr. Brooke Wylie MYELOCYTE % Normal [facility] Comment on above: Performed By: #### C BC #### [facility] [address] [place] [address] Dr. Brooke Wylie NRBC Normal [facility] Comment on above: Performed By: #### C BC #### [facility] [address] [place] [address] Dr. Brooke Wylie OVALOCYTES SLIGHT Normal [facility] Comment on above: Performed By: #### C BC #### [facility] [address] [place] [address] Dr. Brooke Wylie PLT 257 103/ul Normal 150-450 [facility] Comment on above: Performed By: #### C BC #### [facility] [address] [place] [address] Dr. Brooke Wylie RBC 3.26 106/ul Critically low 4.70-6.10 [facility] Comment on above: Performed By: #### C BC #### [facility] [address] [place] [address] Dr. Brooke Wylie RDW 13.5 % Normal 11.0-15.0 [facility] Comment on above: Performed By: #### C BC #### [facility] [address] [address] [address] Brooke Wylie SEG # 8.80 103/ul Critically high 1.40-6.50 [facility] Comment on above: Performed By: #### C BC #### [facility] [address] [place], [place] [id number] Dr. Brooke Wylie SEG % 80.0 % Critically high 43.0-75.0 [facility] Comment on above: Performed By: #### C BC #### [facility] [address] [place], [place] [id number] Dr. Brooke Wylie WBC 11.0 103/ul Normal 4.0-11.0 [facility] Comment on above: Performed By: #### C BC #### [facility] [address] [place] [address] Dr. Brooke Wylie Covid-19 PCR (CVDTB)on SARS-CoV-2 (COVID-19) RNA CRYSTAL+probe Ql (Unsp spec) Detected Critically abnormal NOT DETECTED [facility] Comment on above: Result Comment: This test is not yet approved or cleared by the [place] FDA. When there are no FDA-approved or cleared tests available, and other criteria are met, FDA can make tests available under an emergency access mechanism called an Emergency Use Authorization (EUA). The EUA for this test is supported by the [place] of Health and Human Service's declaration that circumstances exist to justify the emergency use of in vitro diagnostics for the detection and/or diagnosis of the virus that causes COVID-19. This EUA will remain in effect for the duration of the COVID-19 declaration justifying emergency of IVDs, unless it is terminated or revoked by the FDA (after which the test may no longer be used). Performed By: #### C BC #### [facility] [address] [place], [place] [id number] Dr. Brooke Wylie PROF CHEM 8 (BAS METB)on Anion gap [Moles/Vol] 11.9 mmol/L Normal [facility] Comment on above: Performed By: #### B MP #### [facility] [address] [address] [address] Brooke Wylie Calcium [Mass/Vol] 8.3 mg/dL Critically low 8.5-10.1 [facility] Comment on above: Performed By: #### B MP #### [facility] [address] [address] [address] Brooke Wylie Chloride [Moles/Vol] 103 mmol/L Normal 98-107 [facility] Comment on above: Performed By: #### B MP #### [facility] [address] [address] [address] Brooke Wylie CO2 [Moles/Vol] 29.2 mmol/L Normal 21.0-32.0 [facility] [place] Comment on above: Performed By: #### B MP #### [facility] [address] [address] [address] Brooke Wylie Creatinine [Mass/Vol] 1.25 mg/dL Normal 0.70-1.30 [facility] Comment on above: Performed By: #### B MP #### [facility] [address] [address] [address] Brooke Wylie EGFR-AF IRISH >60 Normal >=60 [facility] [place] Comment on above: Performed By: #### B MP #### [facility] [address] [address] [address] Brooke Wylie EGFR-NON AF IRISH 55 mL/min/1.73m2 Critically low >=60 [facility] Comment on above: Performed By: #### B MP #### [facility] [address] [address] [address] Brooke Wylie Glucose [Mass/Vol] 92 mg/dL Normal 74-106 [facility] Comment on above: Performed By: #### B MP #### [facility] [address] [address] [address] Brooke Wylie Potassium [Moles/Vol] 4.1 mmol/L Normal 3.5-5.1 [facility] Comment on above: Performed By: #### B MP #### [facility] [address] [address] [address] Brooke Wylie Sodium [Moles/Vol] 140 mmol/L Normal 136-145 [facility] Comment on above: Performed By: #### B MP #### [facility] [address] [address] [address] Brooke Wylie Urea nitrogen [Mass/Vol] 17.0 mg/dL Normal 7.0-18.0 [facility] Comment on above: Performed By: #### B MP #### [facility] [address] [address] [address] Brooke Wylie Urea nitrogen/Creatinin e [Mass ratio] 13.6 mg/mg [facility] Comment on above: Performed By: #### B MP #### [facility] [address] [place] [address] Dr. Bro[facility] MODE ROOM AIR [facility] Comment on above: Performed By: #### A BG #### [facility] [address] [place] [address] Dr. Brooke Wylie ALLENS TEST Positive [facility] Comment on above: Performed By: #### A BG #### [facility] [address] [place] [address] Dr. Brooke Wylie Base excess Calc (Bld) [Moles/Vol] 2.3 mmol/L Critically high -2.0-2.0 [facility] Comment on above: Performed By: #### A BG #### [facility] [address] [place] [address] Dr. Brooke Wylie BIPAP PRESSURE [facility] Comment on above: Performed By: #### A BG #### [facility] [address] [place] [address] Dr. Brooke Wylie CPAP [facility] Comment on above: Performed By: #### A BG #### [facility] [address] [place] [address] Dr. Brooke Wylie FIO2 [facility] Comment on above: Performed By: #### A BG #### [facility] [address] [place] [address] Dr. Brooke Wylie HCO3 (Bld) [Moles/Vol] 26.6 mmol/L Critically high 22.0-26.0 [facility] Comment on above: Performed By: #### A BG #### [facility] [address] [place] [address] Dr. Brooke Wylie LPM [facility] Comment on above: Performed By: #### A BG #### [facility] [address] [place] [address] Dr. Brooke Wylie MINUTE VOLUME Normal [facility] Comment on above: Performed By: #### A BG #### [facility] [address] [place] [address] Dr. Brooek Wylie Oxygen (Bld) [Partial pressure] 56.3 mm[Hg] Critically low 80.0-100.0 [facility] Comment on above: Performed By: #### A BG #### [facility] [address] [place] [address] Dr. Brooke Wylie Oxygen saturation in Blood 91.2 % Critically low 95.0-100.0 [facility] Comment on above: Performed By: #### A BG #### [facility] [address] [place] [address] Dr. Brooke Wylie PCO2 40.0 mmHg Normal 35.0-45.0 [facility] Comment on above: Performed By: #### A BG #### [facility] [address] [place] [address] Dr. Brooke Wylie PEEP [facility] Comment on above: Performed By: #### A BG #### [facility] [address] [place] [address] Dr. Brooke Wylie pH (Bld) 7.431 [pH] Normal 7.350-7.450 [facility] Comment on above: Performed By: #### A BG #### [facility] [address] [place] [address] Dr. Brooke Wylie PIP [facility] Comment on above: Performed By: #### A BG #### [facility] [address] [place] [address] Dr. Brooke Wylie PS [facility] Comment on above: Performed By: #### A BG #### [facility] [address] [address] [address] Brooke Wylie PUNCTURE SITE LR [facility] Comment on above: Performed By: #### A BG #### [facility] [address] [address] [address] Brooke Wylie RATE [facility] Comment on above: Performed By: #### A BG #### [facility] [address] [address] [address] Brooke Wylie VENT MODE [facility] Comment on above: Performed By: #### A BG #### [facility] [address] [address] [address] Brooke Wylie [place] [facility] Comment on above: Performed By: #### A BG #### [facility] [address] [address] [address] Brooke Wylie CARDIAC AYLEEN ADMITon 022 CK [Catalytic activity/Vol] 84 U/L Normal 39-308 [facility] Comment on above: Performed By: #### C LY, CMADM #### [facility] [address] [place] [address] Dr. Brooke Wylie CK.MB [Mass/Vol] 1.15 ng/mL Normal <=3.60 [facility] [place] Comment on above: Performed By: #### C MP, CMADM #### [facility] [address] [address] [address] Brooke Wylie HSTROP 9.6 pg/mL Normal 4.0-76.1 [facility] Comment on above: Result Comment: CUT- OFF POINTS HAVE BEEN ESTABLISHED BASED ON THE FOURTH UNIVERSAL DEFINITIONS OF MYOCARDIAL INFARCTION. THE UPPER REFERENCE LIMIT (URL) OF TROPONIN, DEFINED THE 99TH PERCENTILE OF cTnI DISTRIBUTION IN A REFERENCE POPULATION, HAS BEEN CONFIRMED THE DECISION THRESHOLD FOR ME DIAGNOSIS. Performed By: #### C MP, CMADM #### [facility] [address] [address] [address] Brooke Wylie COLE 133 ng/mL Critically high 16-96 [facility] Comment on above: Performed By: #### C MP, CMADM #### [facility] [address] [address] [address] Brooke Wylie CBC AUTO DIFFon 11-01-2022 BASO # 0.0 103/ul Normal 0.0-0.1 [facility] Comment on above: Performed By: #### C BC #### [facility] [address] [place] [address] Dr. Brooke Wylie Basophils/100 WBC (Bld) 0.3 % Normal 0.2-2.0 [facility] Comment on above: Performed By: #### C BC #### [facility] [address] [place] [address] Dr. Brooke Wylie EO # 0.0 103/ul Normal 0.0-0.7 [facility] Comment on above: Performed By: #### C BC #### [facility] [address] [place] [address] Dr. Brooke Wylie Eosinophils/100 WBC (Bld) 0.4 % Critically low 0.9-7.0 [facility] Comment on above: Performed By: #### C BC #### [facility] [address] [place] [address] Dr. Brooke Wylie Erythrocyte distribution width (RBC) [Ratio] 13.5 % Normal 11.0-15.0 [facility] Comment on above: Performed By: #### C BC #### [facility] [address] [place] [address] Dr. Brooke Wylie Hematocrit (Bld) [Volume fraction] 32.1 % Critically low 42.0-54.0 [facility] Comment on above: Performed By: #### C BC #### [facility] [address] [place] [address] Dr. Brooke Wylie Hemoglobin (Bld) [Mass/Vol] 10.5 g/dL Critically low 14.0-18.0 [facility] Comment on above: Performed By: #### C BC #### [facility] [address] [place] [address] Dr. Brooke Wylie IG # 0.02 10e3/ul Normal 0.00-0.03 [facility] Comment on above: Performed By: #### C BC #### [facility] [address] [place] [address] Dr. Brooke Wylie IG % 0.3 % Normal 0.0-0.5 [facility] Comment on above: Performed By: #### C BC #### [facility] [address] [place] [address] Dr. Brooke Wylie LYMPH # 1.2 103/ul Normal 1.2-3.8 [facility] Comment on above: Performed By: #### C BC #### [facility] [address] [place] [address] Dr. Brooke Wylie Lymphocytes/100 WBC (Bld) 17.7 % Critically low 20.5-60.0 [facility] Comment on above: Performed By: #### C BC #### [facility] [address] [place] [address] Dr. Brooke Wylie MANUAL DIFF REQ NO Normal [facility] Comment on above: Performed By: #### C BC #### [facility] [address] [place] [address] Dr. Brooke Wylie MCH (RBC) [Entitic mass] 29.5 pg Normal 25.9-34.0 [facility] Comment on above: Performed By: #### C BC #### [facility] [address] [place] [address] Dr. Brooke Wylie MCHC (RBC) [Mass/Vol] 32.7 g/dL Normal 29.9-35.2 [facility] Comment on above: Performed By: #### C BC #### [facility] [address] [place] [address] Dr. Brooke Wylie MCV (RBC) [Entitic vol] 90.2 fL Normal 80.0-94.0 [facility] Comment on above: Performed By: #### C BC #### [facility] [address] [place] [address] Dr. Brooke Wylie MONO # 1.1 103/ul Critically high 0.3-0.8 [facility] Comment on above: Performed By: #### C BC #### [facility] [address] [address] [address] Brooke Wylie Monocytes/100 WBC (Bld) 16.9 % Critically high 1.7-12.0 [facility] Comment on above: Performed By: #### C BC #### [facility] [address] [address] [address] Brooke Wylie NEUT # 4.3 103/ul Normal 1.4-6.5 [facility] Comment on above: Performed By: #### C BC #### [facility] [address] [place] [address] Dr. Brooke Wylie Neutrophils/100 WBC (Bld) 64.4 % Normal 43.0-75.0 [facility] Comment on above: Performed By: #### C BC #### [facility] [address] [place] [address] Dr. Brooke Wylie Platelet mean volume (Bld) [Entitic vol] 10.9 fL Normal 9.5-13.5 [facility] Comment on above: Performed By: #### C BC #### [facility] [address] [place] [address] Dr. Brooke Wylie PLT 295 103/ul Normal 150-450 [facility] Comment on above: Performed By: #### C BC #### [facility] [address] [place] [address] Dr. Brooke Wylie RBC 3.56 106/ul Critically low 4.70-6.10 [facility] Comment on above: Performed By: #### C BC #### [facility] [address] [place] [address] Dr. Brooke Wylie WBC 6.7 103/ul Normal 4.0-11.0 [facility] Comment on above: Performed By: #### C BC #### [facility] [address] [place] [address] Dr. Brooke Wylie CULTURE BLOODon 11-01-2022 Microscopic examination of blood, culture Culture Observations: NO GROWTH AT 5 DAYS. Normal [facility] Comment on above: Performed By: #### C BC #### [facility] [address] [address] [address] Brooke Wylie Microscopic examination of blood, culture Culture Observations: NO GROWTH AT 5 DAYS. Normal [facility] Comment on above: Performed By: #### C BC #### [facility] [address] [address] [address] Brooke Wylie ER URINE PROFILEon 2 Bilirubin Ql (U) Negative Normal NEGATIVE [facility] Comment on above: Performed By: #### U MICRO, ERUR #### [facility] [address] [place] [address] Dr. Brooke Wylie Clarity (U) CLEAR Normal CLEAR [facility] Comment on above: Performed By: #### U MICRO, ERUR #### [facility] [address] [place] [address] Dr. Brooke Wylie Color (U) LT. YELLOW Normal YELLOW [facility] Comment on above: Performed By: #### U MICRO, ERUR #### [facility] [address] [place] [address] Dr. Brooke Wylie ERUAHD A micrscopic examina tion will be performed if indicated. Normal [facility] Comment on above: Performed By: #### U MICRO, ERUR #### [facility] [address] [place] [address] Dr. Brooke Wylie Glucose Ql (U) Negative Normal NEGATIVE [facility] Comment on above: Performed By: #### U MICRO, ERUR #### [facility] [address] [address] [address] Brooke Wylie Hemoglobin Ql (U) LARGE Abnormal NEGATIVE [facility] Comment on above: Performed By: #### U MICRO, ERUR #### [facility] [address] [place] [address] Dr. Brooke Wylie Ketones Ql (U) TRACE Abnormal NEGATIVE [facility] Comment on above: Performed By: #### U MICRO, ERUR #### [facility] [address] [place] [address] Dr. Brooke Wylie LEUKOCYTES Negative Normal NEGATIVE [facility] Comment on above: Performed By: #### U MICRO, ERUR #### [facility] [address] [address] [address] Brooke Wylie Nitrite Ql (U) Negative Normal NEGATIVE [facility] Comment on above: Performed By: #### U MICRO, ERUR #### [facility] [address] [address] [address] Brooke Wylie pH (U) 7.0 [pH] Normal 5-9 [facility] Comment on above: Performed By: #### U MICRO, ERUR #### [facility] [address] [address] [address] Brooke Wylie Protein (U) [Mass/Vol] 30 mg/dL Abnormal NEGATIVE/ TRACE [facility] Comment on above: Performed By: #### U MICRO, ERUR #### [facility] [address] [place] [address] Dr. Brooke Wylie SPEC GRAVITY 1.020 Normal 1.005-<=1.02 5 [facility] Comment on above: Performed By: #### U MICRO, ERUR #### [facility] [address] [place] [address] Dr. Brooke Wylie UR MICRO IND INDICATED Normal [facility] Comment on above: Performed By: #### U MICRO, ERUR #### [facility] [address] [place] [address] Dr. Brooke Wylie Urobilinogen Qn (U) 1.0 {Alonzo'U}/dL Normal 0.2 - 1.0 [facility] Comment on above: Performed By: #### U MICRO, ERUR #### [facility] [address] [place] [address] Dr. Brooke Wylie LACTATE/LACTIC ACIDon 2021 Lactate [Moles/Vol] 1.0 mmol/L Normal 0.4-1.9 [facility] Comment on above: Performed By: #### C BC #### [facility] [address] [place] [address] Dr. Brooke Wylie PROF 14(COMP METB)on 12-07-2 022 Albumin [Mass/Vol] 3.1 g/dL Critically low 3.4-5.0 [facility] Comment on above: Performed By: #### C LY, GENOVEVA #### [facility] [address] [address] [address] Brooke Wylie Albumin/Globulin [Mass ratio] 0.8 {ratio} Normal [facility] Comment on above: Performed By: #### C LY, GENOVEVA #### [facility] [address] [address] [address] Brooke Wylie ALP [Catalytic activity/Vol] 79 U/L Normal 46-116 [facility] Comment on above: Performed By: #### C GENOVEVA MODI #### [facility] [address] [address] [address] Brooke Wylie ALT [Catalytic activity/Vol] 9 U/L Critically low 16-63 [facility] Comment on above: Performed By: #### C GENOVEVA OMDI #### [facility] [address] [address] [address] Brooke Wylie Anion gap [Moles/Vol] 9.8 mmol/L Normal [facility] Comment on above: Performed By: #### C GENOVEVA MODI #### [facility] [address] [address] [address] Brooke Wylie AST [Catalytic activity/Vol] 18 U/L Normal 15-37 [facility] Comment on above: Performed By: #### C GENOVEVA MODI #### [facility] [address] [address] [address] Brooke Wylie Bilirubin [Mass/Vol] 0.9 mg/dL Normal 0.2-1.0 [facility] Comment on above: Performed By: #### C GENOVEVA MODI #### [facility] [address] [address] [address] Brooke Wylie Calcium [Mass/Vol] 8.6 mg/dL Normal 8.5-10.1 [facility] Comment on above: Performed By: #### C GENOVEVA MODI #### [facility] [address] [address] [address] Brooke Wylie Chloride [Moles/Vol] 101 mmol/L Normal 98-107 [facility] Comment on above: Performed By: #### C LY, CHIVODM #### [facility] [address] [address] [address] Brooke Wylie CO2 [Moles/Vol] 29.1 mmol/L Normal 21.0-32.0 [facility] [place] Comment on above: Performed By: #### C LY, CHIVODM #### [facility] [address] [address] [address] Brooke Wylie Creatinine [Mass/Vol] 1.31 mg/dL Critically high 0.70-1.30 [facility] Comment on above: Performed By: #### C CHIVO MODIDM #### [facility] [address] [place] [address] Dr. Brooke Wylie EGFR-AF IRISH >60 Normal >=60 [facility] [place] Comment on above: Performed By: #### C CHIVO MODIDM #### [facility] [address] [address] [address] Brooke Wylie EGFR-NON AF IRISH 52 mL/min/1.73m2 Critically low >=60 [facility] Comment on above: Performed By: #### C CHIVO MODIDM #### [facility] [address] [place] [address] Dr. Brooke Wylie Globulin (S) [Mass/Vol] 3.9 g/dL Normal [facility] Comment on above: Performed By: #### C LY, CHIVODM #### [facility] [address] [address] [address] Brooke Wylie Glucose [Mass/Vol] 88 mg/dL Normal 74-106 [facility] Comment on above: Performed By: #### C LY, CHIVODM #### [facility] [address] [address] [address] Brooke Wylie Potassium [Moles/Vol] 3.9 mmol/L Normal 3.5-5.1 [facility] Comment on above: Performed By: #### C LY, CHIVODM #### [facility] [address] [place] [address] Dr. Brooke Wylie Protein [Mass/Vol] 7.0 g/dL Normal 6.4-8.2 [facility] Comment on above: Performed By: #### C LY, CMADM #### [facility] [address] [place] [address] Dr. Brooke Wylie Sodium [Moles/Vol] 136 mmol/L Normal 136-145 [facility] Comment on above: Performed By: #### C LY, CMADM #### [facility] [address] [place] [address] Dr. Brooke Wylie Urea nitrogen [Mass/Vol] 20.0 mg/dL Critically high 7.0-18.0 [facility] Comment on above: Performed By: #### C LY, CMADM #### [facility] [address] [place] [address] Dr. Brooke Wylie Urea nitrogen/Creatinin e [Mass ratio] 15.3 mg/mg Normal [facility] Comment on above: Performed By: #### C LY, CMADM #### [facility] [address] [place] [address] Dr. Brooke Wylie URINE MICROSCOPIC ONLYon BACTERIA TRACE Abnormal NONE SEEN [facility] Comment on above: Performed By: #### U MICRO, ERUR #### [facility] [address] [place] [address] Dr. Brooke Wylie Bacteria identified Cx Nom (U) NOT INDICATED Normal [facility] Comment on above: Performed By: #### U MICRO, ERUR #### [facility] [address] [place] [address] Dr. Brooke Wylie CAST NONE SEEN Normal NONE SEEN [facility] Comment on above: Performed By: #### U MICRO, ERUR #### [facility] [address] [place] [address] Dr. Brooke Wylie Crystals LM Nom (Urine sed) NONE SEEN Normal NONE SEEN [facility] Comment on above: Performed By: #### U MICRO, ERUR #### [facility] [address] [place] [address] Dr. Brooke Wylie Epithelial cells LM Ql (Urine sed) RARE Normal NONE SEEN /RARE [facility] Comment on above: Performed By: #### U MICRO, ERUR #### [facility] [address] [address] [address] Brooke Wylie MUCOUS NONE SEEN Normal NONE SEEN [facility] Comment on above: Performed By: #### U MICRO, ERUR #### [facility] [address] [address] [address] Brooke Wylie RBC 2-5 Abnormal 0-2 [facility] Comment on above: Performed By: #### U MICRO, ERUR #### [facility] [address] [address] [address] Brooke Wylie WBC 0-2 Abnormal NONE SEEN [facility] Comment on above: Performed By: #### U MICRO, ERUR #### [facility] [address] [address] [address] Brooke Wylie XR CHEST 1 Von 11-01-2022 XR CHEST 1 V EXAMINATION: XR CHES T 1 V, 11/01/2022 5:43 PM EST HISTORY: COUGH COMPARISON: None. TECHNIQUE: Chest x-ray: One view. FINDINGS: SUPPORT APPARATUS/POST-SURGICAL CHANGES: None. CARDIOMEDIASTINAL SILHOUETTE: Chronic silhouette is normal in size. Aorta is mildly tortuous. AIRWAYS/LUNGS: Normal. PLEURAL SPACES: No pleural effusion or pneumothorax. BONES AND SOFT TISSUES: Bones appear osteopenic. There is no acute osseous abnormality. IMPRESSION: No acute cardiopulmonary process. Electronically authenticated by: FLACO CHAIREZ Date: 2022-11-01 18:24 Normal [facility] Coding Summaryon 10-23-2022 Coding Summary HTMLBase 64 TizimdhtZZn7eYc+PGhlYWQ+P C5AHIGcC73qsIBlgC9CL9tNAR 3LWFLFTSQYQG1VSD2chFR6PFl fL4XkzsQn GhzyvVJsFY62LBf0OYY1hKbvH HdkcA4xvXXdI6h3RlTbSI47vE 12JZmhLLMaJoR8XoCqsegjuTO y U6ayEzGlqCBqSfn+PHRhYmxlI HdpZHRoPScxMDAlJyBzdHlsZT 3uEs0aSTKhUPNkbFlmqJJbMoZ j l4zlKJGxVEwxPV1irLirO5Aoq UG4MNPwy9s1Tf06pDD+PHRkIH J2bTmzPBwce907GwTuh8jvSHH 3 uNYbJPpsJRQ0C18ta7C5AUFdP BVpHRX3gMA9dZ1mkVapmmqqU2 BucEKqDnV7SMV7uBUibY3qkZr n tdjpfV0xKlj+N05DAL1XKENFA J0LFoy2P3AeWdpcvOM+PC90YW PgGY44fBFauZTvt7jwcHz7WkL w DWJrOBN0gQyaDJrsw9CaZEKgB 48lsXXxd6M9VQCkqXjtkNWrIt HqhAB8cL4aVPgiobisq1nvyad n Bbiez1zpcl52qQ48S18qUFgcY DElXKE4PJMnTTMthOwmcs9hvG 9wIi8+AXjxj1shd1bqrHf2WvJ w IVPmidVhlYhfYKE1x7FjFw80G 2PjpJcsq2VaPmf7qy25sRMll7 Q8zJE5XBfoAIOanE9iVKfsPgL 6 NIWsDrZnxI20nDVgKLitNo6xt SqagPavBQ9uHHRfoxpbESPhtU 7rNZOptSEurBjmAO6jNYVabmb m k238JgLcEAI5NMCwsDXmQ7Suq O9gTlEbYWGeIWYgG0NthKQoOV zgG882ZLkrLaE8AUXpfaRoL1H s WJXmyJjmWdO3p5Q4Zg9Iv6Key qadKSR4STxsHLScAuJ0MdXzVh Q6M7VkGto5RBLjlFnsIT8gC2W h PGOuamaaweopqET9MYVqARHml A73zVEpGHyrCe0zu6R0b354IC IpQHHidR58Kb1duGckOZHaxLL U kL1kblsck7zuavcxHbRxHUTmC Kz9MVo8XKQpkOfrDyChIKT7Cz K1SZP4rYOqtD0afDfveguxzO1 w Oyc+P40fbH6aVEP6IKF6ihapY GMefkQpUO03ZG74E0WqGxpjtU FibGU+YAIruyJmtTwgHF8qTaZ j v7ctc3KsOVliE3HuRKIhHAwwT ad4NOWoGHT9mLV0jZ4sLJBiVF afb9O8eQL5K3JqmdFalk9dw8z s OMAtNKmjZ57nvKRiv8R7MBYwd TF2ZBCgaRkyJtKbsL22Mkx+PG QsmDbas5HbXyvkz7fqo2ttgVm 9 ZaGmBRArzdBhdIotLBF8u5BpQ d68Y56mQUuhNFVkQYHwKZIxJU YxaDnngp3kxZ5xRe5+PGNvbCB 3 uZL7dR1sEGNvTnC6ZEwwX159L gIifCZfEgyet0qqt7ivwOd5Kv UrTRFnsbDaqUduNIE1g6FhOv0 8 L01cQTfiTWPwZRZqNLVqLHEdj Ortjf8uhP3vNh6+XE8yl0vaeb 33gL14sLN+OPIzFTY7nXseOSh w GCCrwD6cSAaiJbM7FONqGgJjg W00hHUsJWrrGp1fdSurbSdnTX 8pTKByajwdr373WfXdm0aqYDR w jNHfTZhmQQO6P15mz0G8CUWbT ECuWFC5yDH0uO2diAuwxkezpN RldFnkeeFbiQiwABchUGzmU98 6 IHRvcDsnPlBhdGllbnQgTmFtZ Et9A6KzFqn8EHWvxClyHJ9wwA XiBJzdNt9djPzkvNgcXV4fXKX p rsjwg975CwOhl9rcYKBxjAPlH KmvHHM4N69dl0B1BPEaXFTbMF A9rVE3mY8yuLdwclryeOIunSn g bxYdiFmoDMnbQBtqW276XSTwr CmsEaFowjHzQFSxjKK3GE75JD 89rWXuw4V8kXC6Q6TvJPBxtcz t saujgKE9CSOjRZFtuP37Qw6ty YbmSs9oHGPgFAZ5ZORheICjI6 EuuN9bDvLeOYAmMSGoN5AitIS t UStcK437LLncFrV8XJGaznDjQ 2FoQBKbtGiwBpH6h4W1Ef5RL3 Q2TV65FA18wPQlc8L1mWK8F6N h TZJnmwhfpcrzmRC5KRAiWASnl H65Xv1sxOdgPy4yKKZzKHQ0XH LduDZfK0KchC2aTnAhGQQrWTD w I6TxoJHuVUzpQ973KFjyKoL1V VVribHoE7NnNTIsxVsqYgE0v7 U1Ga2JQUf2EK12YJ48yMFsa7O 5 yWF3Z1BgJVNueqiapbqowIZ7A JWaFWHjbP37Fe8usIufJd3aUM JzRWD9PIExkDSyQ6LhyF8aQwT j IWBxITOkP0JwzRFjXYecK646G XuvPtL0LWKfviGoO5MfTULueZ udPbH8w8E0Cg6JLORgGX16NCI 5 vGV6CE06WV85N7BzCaycuLHdj +PHRhYmxlIHdpZHRoPScxMD HmVwKfiJxvIW1tIw6lBMSfIYH v gLdrhIMgLiCra9kzIEFlGOuzE Y3tdFdxG1ZkqPL6AJZcj7w7Wq 17C08zU3TocJC+GXAguIP1pNX 0 eE9uQbMsWmL1ZLuxZ036NkMwi NSzBrsce6vcx4omcJd4SeI7US XucxUxsIpaQWX6f8DwKf91X76 s IHdpZHRoPSIxNSUiIHZhbGlnb g1vnB5lLd1+ZXXplOG2tZD3mI 5rIqQlQhZ2JSepL609MwIqdHQ v Lequz7rlc0fygUo2TqYlCEByx aAckQeoPYG5r8ThEf08E1FyfJ xhw3EfEdt9jg54yTZwc4P2fVL 9 B1ImVWPudndvoBIbnNscEH4dQ CRnlfhqGFCwiC0nYESnW4r1Gi YxDzG2HRpvO9FvtkF4JZHegVY g MCbjGTC8J19my6G1YEBrTXDeB GB3cDP6xO1fkMbusmfdbPJhrY ofptZgnYknZWoeSNvxT933ZAV v vQzjNXZbkO4qSUHjrNBktBnxO T3oMIYvfkwmZbULAJXGKQgRAC hmNLnGLSUBOMM3B6PpMiw6OPD z aHllYL2uaIEgTUzlEh6efQuos BibRG4nPUCijhyvHJAgeN2xWO OcdZJwoPxyFO3oDFUmpthfm38 0 PeAhMZX8OPUyhMBuA9MciK4uU bHqDYOqPEIhB9IwhSIzSUquB2 47YHfjAqW2DCCqfvOnS0CuIWU s sOauJmJ7t6W2Xe8uMi9jTD8hJ MC7YJ29KQ99eVLfq4D9uAR5N6 JlQYCbaysuqebxhLG0ARJvCIL w qR78wRSwVPsbCn1vt3U9j541G AYtOXGabD10Jm0prYgtHKElsC PKqY2zroxrq3vhvpvwNyTqQTN w QDx8FQe4GYPzcSdkLgVsZCJ0Y eK8HKF2dLIjlJ0mtEvbzobdsT 9wOyc+VCVdZSZprpH4T9ZuGfi 0 SJIuoTtbSW5hdDQzBGveNi5pw WnpzYduNL2hWONtqgwnKAQedU 1kFVBjtXFcrCldQR3aYTBqepe m s339GfSsWAS5PBSxeXFdK8Vgy U7uEyNqTXGfQDAnO7VrwDOiTK apD717MPyjSbF9CRUjbzLrW2M s RORsyFxfXgN3u3H8On9SGXvQS N10DW68zEHuk7Z1gMX8C8StEV PlhohsccxhfXP2PWGmJVVdiL4 7 oYUrIMetRp0js4W1q384MYCvU ZJymX21Lu3ggEflKGGxlVWErW 2jcqiqs3xitryrQcNnTCQvDFg 0 PMs3SOFqdRszRzXtNHI5IlW3Q OS5mZZhvY8nhOvwvgtnrI9aFs c+XOI7YWR0xtsdtqn9R5EcNva v dHI+UA48WBHdTJ05zHRcxAQaj 2ysbPm3CgCmVBDdBQK8aUvmLF yvd4LdJFUtB38knLStn0X6QPZ v uSjpeOUyTlCpuHE1dT0zWPsaf terr1dmejhiLacng0sccm74pQ 02L81iGAzrFDQpMBDoLRBsNRU h wFxlgl4ftI8fBc0+XYGdfKJ4o TG5oE0tJrErHpW4BBxgI718Uv FutPZyKchro4aua4ieuBe1TyX w WTGxjvVnpQzsUMK3a1BdXv01T 29sIHdpZHRoPSIyMCUiIHZhbG wfdf8kmQ6kIn5+PN0qj6fktm3 1 xW10wYC+OUFoZUN3wUmiWFgdN SGpeT4jVIsnLxB8OPTrAhRqrI 24wEBtUOcpHr3sxRhlpJmpOC7 w IESpqezzl477JvJzx9ktVECqr WIaXXkkESH3C60lr6P9JGCuMS CzRTN7pFA6vH8zmJghbelqpNS m yTtjjmEcsErqBQstTEwdA437F LJbdJaiNpMrnWLbV9bsnwYKSH 1lOjwvdGQ+VBYbIAF0uQgzSHg w WURqcY1cRMCvO3c9NgFvDiL6R LluB2QqvoD1PSGfpSOhMRZzeE FCyZ4gvurfu0bhewaqHtTxXAB w EFf0CMr6WVPeoLkjRfVvPSN5U kN1RCO8eUEoyU4qoTkkouygzG 9wOyc+RklOOjwvdGQ+PHRkIHN 0 cBruLUdxTZFetG7pDZOyE9a3V eCdTaR5CYrzN3FqgfE5CHIlaT EiZQGhgTLQcQ4tqcltl9yuwdh g TvQwSTAxGQi4ORn9BREkeZmfQ sQpZHA8OaC5YBO4mQHsbI4hxT mvopshyG4uZdb+TVJOOjwvdGQ + RTEwTMX4oHbiYVjiQWOgrC0hZ ONbV8o5XxSiOuF7CYyvJ5Odzf B6LSWuyXKnNJXptSLGsN5xxcq j e3xkzvzfHrGmGMFtTTc9JUo1T HPjdWhcJlNeTLP5IyO7BFO9pV XnvB0itLdwfkuybY1qSph+UGF 5 BXO4DE97JG48I2MrLglwtCKfc +PHRhYmxlIHdpZHRoPScxMD GsVtFjiPzxZB4uZr2sKTCfENV v bGx (more content not included)... [facility] Consent Formson 10-23-2022 Consent Forms [id number]#1.00OTGTI [facility] Outside Recordson 10-23-2022 Outside Records [id number]#1.00OTGTI [facility] Telemetry Stripson Telemetry Strips [id number]#1.00OTGTIF F [facility] Provider Orderson 10-20-2022 Provider Orders [id number]#1.00OTGTIF F [facility] Inpatient Patient Summaryon 10-18-2022 [place]patient [place] [address] Patient Discharge Instructions Name: KALYAN HERNANDEZ : 1935 Patient Address: [address] [place] [address] [id number] Primary Care Provider: Name: Shira Strickland CNP After you are discharged if you find you have any questions, please, call [phone] ext [phone] to speak to a nurse. The Pharmacy at [facility] is open Sunday through Sunday from 9A to 6P and Sunday and Sunday from 9A to 5P Discharge Diagnosis: 1:BPH with urinary obstruction; Other obstructive and reflux uropathy Prescription Information: If you have been given a prescription for narcotics, seek immediate medical attention if you have any difficulty breathing or any sudden status changes such as confusion and sleepiness. If you or anyone you know is experiencing suicidal thoughts, mental health, alcohol and/or drug addiction problems; contact the [facility] 18/06 Crisis Hotline -Text 4HGZK aq 548329. If you received any narcotics, sedation, or any other medication that causes drowsiness for the next 24 hours, unless otherwise directed: ? Do not drive a car. ? Do not operate machinery such as power tools, lawn mowers, drills, sewing machines, or stoves ? Avoid alcoholic beverages and drugs for allergies, nerves, or sleep ? Do not make important personal or business decisions or sign any legal documents [facility] would like to thank you for allowing us to assist you with your healthcare needs. The following includes patient education materials and information regarding your injury/illness. KALYAN HERNANDEZ has been given the following list of follow-up instructions, prescriptions, and patient education materials: Follow-up Instructions With: Address: When: Chato Mendes MD [address] [place] [address] [place] [phone] Medications During the course of your visit, your medication list was updated with the most current information. The details of those changes are reflected below: Medications That Were Updated - Follow Below Instructions Other Medications Updated: nystatin topical (nystatin 100,000 units/g topical cream) 1 tim Topical 3 times a day. Updated: nystatin topical (nystatin 100,000 units/g topical cream) 1 tim Topical 3 times a day as needed rash. Medications to Continue That Have Not Changed Other Medications acetaminophen (acetaminophen 325 mg oral capsule) 1 cap(s) Oral Every 6 hours as needed as needed for pain. aspirin (aspirin 81 mg oral delayed release tablet) 1 tab(s) Oral every day. atorvastatin (atorvastatin 80 mg oral tablet) 1 tab(s) Oral every day. bisacodyl (bisacodyl 10 mg rectal suppository) 1 suppository(ies) Per rectum every 72 hours as needed for constipation. escitalopram (escitalopram 20 mg oral tablet) 1 tab(s) Oral every day. ferrous sulfate (ferrous sulfate 325 mg (65 mg elemental iron) oral delayed release tablet) 1 tab(s) Oral twice a day (with meals). finasteride (finasteride 5 mg oral tablet) 1 tab(s) Oral every day. levothyroxine (levothyroxine 50 mcg (0.05 mg) oral capsule) 1 cap(s) Oral every day. magnesium hydroxide (Milk of Magnesia 8% oral suspension) 30 Milliliter Oral once a day (at bedtime) as needed for constipation. ocular lubricant (Artificial Tears ophthalmic solution) 1 Drops Ophthalmic 3 times a day as needed for dry eyes. omeprazole (omeprazole 20 mg oral delayed release capsule) 1 cap(s) Oral every day. polyethylene glycol 3350 (polyethylene glycol 3350 oral powder for reconstitution) 17 gram Oral 2 times a day. dissolve in water before taking. sulfamethoxazole-trimetho prim (sulfamethoxazole-trimeth oprim 800 mg-160 mg oral tablet) 4 Milligrams/Kilogram Oral Every 12 hours scheduled time for 5 Days. Dosage expressed as trimethoprim. tamsulosin (tamsulosin 0.4 mg oral capsule) 1 cap(s) Oral every day. It is important to always keep an active list of medications available so that you can share with other providers and manage your medications appropriately. As an additional courtesy, we are also providing you with your final active medications list that you can keep with you. acetaminophen (acetaminophen 325 mg oral capsule) 1 cap(s) Oral Every 6 hours as needed as needed for pain. aspirin (aspirin 81 mg oral delayed release tablet) 1 tab(s) Oral every day. atorvastatin (atorvastatin 80 mg oral tablet) 1 tab(s) Oral every day. bisacodyl (bisacodyl 10 mg rectal suppository) 1 suppository(ies) Per rectum every 72 hours as needed for constipation. escitalopram (escitalopram 20 mg oral tablet) 1 tab(s) Oral every day. ferrous sulfate (ferrous sulfate 325 mg (65 mg elemental iron) oral delayed release tablet) 1 tab(s) Oral twice a day (with meals). finasteride (finasteride 5 mg oral tablet) 1 tab(s) Oral every day. levothyroxine (levothyroxine 50 mcg (0.05 mg) oral (more content not included)... [facility] Pharmacy Noteon 10-18-2022 Pharmacy Note I have personally reviewed the patient's medication list upon discharge including, prescription medications, OTC products, vitamins and supplements. Below are the following medications the patient is discharged on. Medications That Were Updated - Follow Below Instructions Other Medications Updated: nystatin topical (nystatin 100,000 units/g topical cream) 1 tim Topical 3 times a day as needed rash. Updated: nystatin topical (nystatin 100,000 units/g topical cream) 1 tim Topical 3 times a day. Medications to Continue That Have Not Changed Other Medications acetaminophen (acetaminophen 325 mg oral capsule) 1 cap(s) Oral Every 6 hours as needed as needed for pain. aspirin (aspirin 81 mg oral delayed release tablet) 1 tab(s) Oral every day. atorvastatin (atorvastatin 80 mg oral tablet) 1 tab(s) Oral every day. bisacodyl (bisacodyl 10 mg rectal suppository) 1 suppository(ies) Per rectum every 72 hours as needed for constipation. escitalopram (escitalopram 20 mg oral tablet) 1 tab(s) Oral every day. ferrous sulfate (ferrous sulfate 325 mg (65 mg elemental iron) oral delayed release tablet) 1 tab(s) Oral twice a day (with meals). finasteride (finasteride 5 mg oral tablet) 1 tab(s) Oral every day. levothyroxine (levothyroxine 50 mcg (0.05 mg) oral capsule) 1 cap(s) Oral every day. magnesium hydroxide (Milk of Magnesia 8% oral suspension) 30 Milliliter Oral once a day (at bedtime) as needed for constipation. ocular lubricant (Artificial Tears ophthalmic solution) 1 Drops Ophthalmic 3 times a day as needed for dry eyes. omeprazole (omeprazole 20 mg oral delayed release capsule) 1 cap(s) Oral every day. polyethylene glycol 3350 (polyethylene glycol 3350 oral powder for reconstitution) 17 gram Oral 2 times a day. dissolve in water before taking. sulfamethoxazole-trimetho prim (sulfamethoxazole-trimeth oprim 800 mg-160 mg oral tablet) 4 Milligrams/Kilogram Oral Every 12 hours scheduled time for 5 Days. Dosage expressed as trimethoprim. tamsulosin (tamsulosin 0.4 mg oral capsule) 1 cap(s) Oral every day. Discharge Med Rec Discrepancies: [Electronically Signed on: 10/18/2022 14:43 EST] Jovanny Baldwin [Verified on: 10/18/2022 14:43 EST] Jovanny Baldwin [facility] Pharmacy Note I have personally reviewed this patient's current medication list including prescription medications, OTC products, vitamins and supplements for the following: Renal Function: Estimated CrCl: NO LABS Action: Continue to monitor renal function. Anticoagulation or Prophylaxis: _ None NO Labs Action: Continue to monitor, consider DVT prophylaxis if patient is to have an extended stay. Antibiotics: Cefazolin 1g Q8H post-op x 3 doses. Indication: UTI/ Post-op prophylaxis Action: Appropriate therapy chosen based on c/s results. No further action required. Pain Management: Opioid naive: Yes prn narcotic pain medication(s): TramadolModerate pain __ prn non-narcotic pain medication(s): AcetaminophenMild pain AcetaminophenModerate pain Bowel regimen medication(s): Docusate Action: OARRS and risk factors reviewed. PDMP marked as reviewed. Continue to monitor patient's pain control and need for bowel regimen. PDMP Reviewed: OCT 18, 2022 09:04 Gopi Benítez PharmD Therapeutic Duplication: Duplicate pain medications for Moderate pain scale. Notes/Recommendations: _Please adjust medication therapy to avoid choice between APAP and tramadol for Moderate pain. [Electronically Signed on: 10/18/2022 09:19 EST] Gopi Benítez PharmD [Verified on: 10/18/2022 09:19 EST] Gopi Benítez PharmD [facility] Anesthesia Noteon 10-17-2022 Anesthesia Note Patient: KALYAN HERNANDEZ Age: 87 years Sex: MALE : 1935 Associated Diagnoses: None Author: Ryne Marvin MD Postoperative Information Post Operative Note: Post Anesthesia Care Unit. Health Status Allergies: Allergic Reactions (All) No known allergies Physical Examination VS/Measurements Vital Signs 10/17/2022 14:00 EST Temperature Temporal Artery 36.9 DegC Temperature Temporal Artery (DegF) 98.42 DegF Heart Rate Monitored 61 bpm Respiratory Rate 16 br/min Systolic Blood Pressure 147 mmHg HI Diastolic Blood Pressure 68 mmHg Mean Arterial Pressure, Cuff 94 mmHg BP Site Right arm SpO2 100 % Oxygen Flow Rate 6 L/min Oxygen Therapy Simple mask BP Method Automatic General: No acute distress. Respiratory: Respirations are non-labored. Review / Management Condition: Stable. Assessment Anesthetic outcome No anesthetic complications noted. Adequate pain relief. No Complaint of nausea and vomiting. Plan Transfer/ Discharge: Patient can be discharged from PACU when criteria met. Condition stable. [Electronically Signed on: 10/17/2022 14:12 EST] Ryne Marvin MD [Verified on: 10/17/2022 14:12 EST] Ryne Marvin MD [facility] Anesthesia Note Patient: KALYAN HERNANDEZ Age: 87 years Sex: MALE : 1935 Associated Diagnoses: None Author: Ryne Marvin MD Preoperative Information Anesthesia history: Patient history: No difficult intubation, No malignant hyperthermia. Family history: No malignant hyperthermia. Review of Systems Respiratory: No shortness of breath, No apnea. Cardiovascular: No known ME, No chest pain. Gastrointestinal: No heartburn. Health Status Allergies: Allergic Reactions (All) No known allergies Current medications: Home Medications (16) Active acetaminophen 325 mg oral capsule 325 mg = 1 cap(s), PRN, PO, q6hr Artificial Tears ophthalmic solution 1 drop(s), PRN, OPTH, TID aspirin 81 mg oral delayed release tablet 81 mg = 1 tab(s), PO, Daily atorvastatin 80 mg oral tablet 80 mg = 1 tab(s), PO, Daily bisacodyl 10 mg rectal suppository 10 mg = 1 supp, PRN, SC, q72hr escitalopram 20 mg oral tablet 20 mg = 1 tab(s), PO, Daily ferrous sulfate 325 mg (65 mg elemental iron) oral delayed release tablet 325 mg = 1 tab(s), PO, BIDWM finasteride 5 mg oral tablet 5 mg = 1 tab(s), PO, Daily levothyroxine 50 mcg (0.05 mg) oral capsule 50 mcg = 1 cap(s), PO, Daily Milk of Magnesia 8% oral suspension 2.4 gm = 30 mL, PRN, PO, Once a day (at bedtime) nystatin 100,000 units/g topical cream 1 tim, TOP, TID nystatin 100,000 units/g topical cream 1 tim, PRN, TOP, TID omeprazole 20 mg oral delayed release capsule 20 mg = 1 cap(s), PO, Daily polyethylene glycol 3350 oral powder for reconstitution 17 gm, PO, BID sulfamethoxazole-trimetho prim 800 mg-160 mg oral tablet 4 mg/kg, PO, q12hr tamsulosin 0.4 mg oral capsule 0.4 mg = 1 cap(s), PO, Daily Problem list (past medical history): All Problems General weakness / SNOMED CT 12968067 / Confirmed BPH (benign prostatic hyperplasia) / SNOMED CT 799927904 / Confirmed CVA (cerebrovascular accident) / SNOMED CT 913246047 / Confirmed chronic kidney disease / SNOMED CT 2210150389 / Confirmed Depression / SNOMED CT 29144921 / Confirmed Hemiparesis / SNOMED CT 49670674 / Confirmed Hemiplegia / SNOMED CT 39078770 / Confirmed Hyperlipidemia / SNOMED CT 69669934 / Confirmed HTN (hypertension) / SNOMED CT 4971497087 / Confirmed Nontraumatic intracranial hemorrhage / SNOMED CT 4288964 / Confirmed Iron deficiency anemia / SNOMED CT 272140257 / Confirmed Urinary retention / SNOMED CT 412552492 / Confirmed Histories Family History: Patient was adopted. Procedure history: Cataract ([id number]). Comments: 10/06/2022 11:47 TELMA Capellan RN, Nayana Cardoza right and left eyes Social History Electronic Cigarette/Vaping Assessment Electronic Cigarette Use: Never. Alcohol Assessment Use: Past. Tobacco Assessment Never tobacco user Tobacco Use:. Substance Abuse Assessment Substance use: Never. Employment/School Assessment Retired Home/Environment Assessment Living situation: penitentiary. Comment: [facility] . Physical Examination VS/Measurements Vital Signs (last 24 hrs) Last Charted Heart Rate Peripheral 69 bpm (OCT 17 10:40) Resp Rate 18 br/min (OCT 17 10:40) SBP H 149 mmHg (OCT 17 10:45) DBP 72 mmHg (OCT 17 10:45) General: Alert and oriented, No acute distress. Airway: Mallampati classification: II (soft palate, fauces, uvula visible). Mouth: Within normal limits. Respiratory: Respirations are non-labored. Cardiovascular: Normal rate. Review / Management Laboratory Results ECG interpretation: Within normal limits. Plan [place] [employer]#(ASA) physical status classification: Class III. Anesthetic Preoperative Plan Anesthesia: General. . Anesthetic plan, risks, benefits, and alternatives discussed with the patient and/or family. Patient verbalized understanding. Family/Guardian present. Informed consent was given. Consent was signed by the patient. [Electronically Signed on: 10/17/2022 12:32 EST] Ryne Marvin MD [Verified on: 10/17/2022 12:32 EST] Ryne Marvin MD [facility] MAGR Intraoperative Recordon 10-17-2022 MAGR Intraoperative Record MAGR Intra-Op Record Summary Primary Physician: Chato Mendes MD Finalized Date/Time: 10/17/22 14:38:22 Pt. Name: KALYAN HERNANDEZ/Sex: 1935 MALE Med Rec #: [id number] Physician: Chato Mendes MD Financial #: [id number] Pt. Type: D Room/Bed: [facility] Admit/Disch: 10/17/22 10:12:00 - Institution: Case Times MAGR Entry 1 Patient In Room Time 10/17/22 12:37:00 Out Room Time 10/17/22 13:57:00 Anesthesia Start Time 10/17/22 12:37:00 Stop Time 10/17/22 13:57:00 Surgery Start Time 10/17/22 13:05:00 Stop Time 10/17/22 13:52:00 Last Modified By: Ana Watson RN 10/17/22 14:38:04 Case Attendance MAGR Entry 1 Entry 2 Entry 3 Case Attendee Chato Mendes MD, Satya S MD Long, Barbara RN Role Performed Surgeon - Primary Anesthesiologist of Auto Fleet Manager Record Time In 10/17/22 13:03:00 10/17/22 12:37:00 10/17/22 12:37:00 Time Out 10/17/22 13:52:00 10/17/22 13:57:00 10/17/22 13:57:00 Procedure Cystoscopy PVP Cystoscopy PVP Cystoscopy PVP Greenlight Laser Greenlight Laser Greenlight Laser Prostate Prostate Prostate Last Modified By: Ana Watson RN, Barbara RN Long, Barbara RN 10/17/22 14:38:05 10/17/22 14:38:05 10/17/22 14:38:05 Entry 4 Entry 5 Entry 6 Case Attendee Gareth ADAMS, Bharti Grover, Kristine BUSINESS SEGMENT MANAGER Veronique Lamas BUSINESS SEGMENT MANAGER Role Performed Auto Fleet Manager Scrub Personnel Jewelry Technician Time In 10/17/22 12:37:00 10/17/22 12:37:00 10/17/22 12:37:00 Time Out 10/17/22 13:57:00 10/17/22 13:57:00 10/17/22 13:57:00 Procedure Cystoscopy PVP Cystoscopy PVP Cystoscopy PVP Greenlight Laser Greenlight Laser Greenlight Laser Prostate Prostate Prostate Last Modified By: Ana Watson RN, Barbara RN Long, Barbara RN 10/17/22 14:38:05 10/17/22 14:38:05 10/17/22 14:38:05 General Comments: Scarlet curtis rep Surgical Procedures MAGR Pre-Care Text: A.20 Verifies operative procedure, surgical site, and laterality Im.150 Develops individualized plan of care Entry 1 Procedure Cystoscopy PVP Primary Procedure Yes Greenlight Laser Prostate Primary Surgeon Chato Mendes MD Surgeon Comment CYSTOSCOPY GREEN LIGHT Start 10/17/22 13:05:00 Stop 10/17/22 13:52:00 Anesthesia Type General Surgical Service Urology Wound Class Clean-Contaminated Technique Details Closure Technique N/A Entire procedure No was performed via laparoscope or robotic assistance Last Modified By: Ana Watson RN 10/17/22 13:53:28 Post-Care Text: O.730 The patient's care is consistent with the individualized perioperative plan of care General Case Data MAGR Pre-Care Text: A.350.1 Classifies surgical wound Entry 1 Case Information OR MAGR OR 01 Case Level Level 4 Wound Class Clean-Contaminated Specialty Urology ASA Class 3 Diagnosis Preop Diagnosis BPH AND RETENTION Postop Same As Preop Yes Postop Diagnosis BPH AND RETENTION Blunt or No Is the procedure No penetrating injury considered occured prior to Emergent/Urgent? the start of the procedure: Last Modified By: Ana Watson RN 10/17/22 12:42:43 Post-Care Text: O.760 Patient receives consistent and comparable care regardless of the setting Time Out MAGR Entry 1 Time out date/time 10/17/22 13:04:00 All team members Yes have introduced themselves by name and role Surgeon, Yes Surgeon reviews Yes anesthesia, nurse critical or confirm patient, unexpected steps, site, procedure operative duration, anticipated blood loss Anesthesia team Yes Nursing team Yes reviews any reviews sterility patient-specific (including concerns indicator results) and equipment issues/concerns Antibiotic Antibiotic Yes Administration Time 12:35 prophylaxis given within the last 60 minutes Last Modified By: Ana Watson RN 10/17/22 13:06:35 Patient Positioning MAGR Pre-Care Text: A.280 Identifies baseline musculoskeletal status Im.40 Positions the patient Im.80 Applies safety devices Entry 1 Procedure Cystoscopy PVP Body Position Low Lithotomy Greenlight Laser Prostate Left Arm Position Extended on padded arm Right Arm Position Extended on padded arm board board Left Leg Position Secured in Stirrup Right Leg Position Secured in Stirrup Press Points Checked Yes Positioning Device Safety Strap, Stirrups Outcome Met (O.80) Yes Last Modified By: Ana Watson RN 10/17/22 12:44:14 Post-Care Text: E.290 Evaluates musculoskeletal status O.80 Patient is free from signs and symptoms of injury related to positioning Skin Prep MAGR Pre-Care Text: A.30 Verifies allergies Im.270 Performs skin preparation Im.270.1 Implements protective measures to prevent skin and tissue injury due to chemical sources Entry 1 Skin Prep Syntegrity Prep Agents (Im.270) 4% Chlorhexidine Prep By Ana Watson RN Gluconate Prep Area (Im.270) Perineum Skin Prep Agent Dry Yes Without Pooling Hair Removal Syntegrity Hair Removal Methods No hair toni (more content not included)... [facility] MAGR PACU Recordon MAGR PACU Record MAGR PACU Record Cameron rodriguez Primary Physician: Chato Mendes MD Finalized Date/Time: 10/17/22 14:53:21 Pt. Name: KALYAN HERNANDEZ/Sex: 1935 MALE Med Rec #: [id number] Physician: Chato Mendes MD Financial #: [id number] Pt. Type: D Room/Bed: 234/1 Admit/Disch: 10/17/22 10:12:00 - Institution: PACU Case Times MAGR Entry 1 In PACU I 10/17/22 13:59:00 Discharge from PACU 10/17/22 14:48:00 I Last Modified By: Concepción Aceves RN 10/17/22 14:53:19 Finalized By: Concepción Aceves RN Document Signatures Signed By: Concepción Aceves RN 10/17[facility]22 [facility] MAGR Preoperative Record MAGR Pre-Op Record Summary Primary Physician: Chato Mendes MD Finalized Date/Time: 10/17/22 12:39:33 Pt. Name: KALYAN HERNANDEZ/Sex: 1935 MALE Med Rec #: [id number] Physician: Chato Mendes MD Financial #: [id number] Pt. Type: D Room/Bed: 234/1 Admit/Disch: 10/17/22 10:12:00 - Institution: Pre-Op Case Times MAGR Pre-Care Text: Patient will be optimally prepared for surgery. Patient is free from s/s of injury. Provide information to patient/family related to plan of care. Verify patient allergies. Confirm identity and verify consent before the operative or invasive procedure. Entry 1 Patient Arrival Time 10/17/22 10:37:00 Preop Departure 10/17/22 12:35:00 Last Modified By: Ana Watson RN 10/17/22 12:39:30 Post-Care Text: Patient is prepared mentally and physically and is ready for surgery. The patient remains free from s/s of injury. Patient/family express understanding of plan of care and participate in decisions affecting his or her perioperrative plan of care. Allergies documented appropriately. Patient identifiers and consent correct. General Comments: Pt arrives per W/C. Pt denies any CP, SOB, Hx of S/S of flu, or sleep apnea. Disch instructions reviewed with pt and son incl anesth restrictions if pt decides to go home after procedure-verbalized understanding. Finalized By: Ana Watson RN Document Signatures Signed By: Ana Watson RN 10/17/22 12:39 [facility] Pharmacy Noteon 10-17-2022 Pharmacy Note The following medications(s) has been reviewed for renal dose adjustment per P &T protocol based on the patient's current creatinine clearance: Medication: Cefazolin Estimated CrCl: 33.84 ml/min Action: No change required Changes Made: [Electronically Signed on: 10/17/2022 14:05 EST] Jovanny Baldwin [Verified on: 10/17/2022 14:05 EST] Jovanny Baldwin [facility] Coding Summaryon 10-11-2022 Coding Summary HTMLBase 64 LfhiirsfJFi9uMc+PGhlYWQ+P F2JPUTiE09gzJGbxB5XE7zYHC 5BOKKDLHZEXK7FIL1snVY4RSe pE9TumeKj AehowQIkBE55YBh5PLL8mSnrX ZuznZ5wwSZnI3i6HoEsUG87sQ 26FLqoUVBbUoC8ZqUrdeawdWI y T9lpRlMyfGIgDlj+PHRhYmxlI HdpZHRoPScxMDAlJyBzdHlsZT 0pKu1oCQJqMYBrzFrsmCNrBwE j i6xjRJVuVNjvRP7xaDdzR7Oih YG7LYFvw7l3Fe26kPZ+PHRkIH I0eKjtCAfby621InAzm5twCUY 3 fJVuZMphMNI1O16mq1M3UGBfG VDuAMJ0sGW7lL2kkZyjawlnV0 WloUKkSfZ3OFH7vBRslS0wwVo n davnpO8sJjr+O59TMX8DWXNOF I9VWxf9E0ZpRfaenLC+PC90YW DzVA77kAXcnXClh7iydSy5KxJ w IOFnKOC7kJaqBUehg0YoGHXwX 74hdNMyd8G5GNCarUiomVPvQl XslRD3fJ7bMFcqlhkgy3xtynp n Ikfpx1rdha47yQ75F23nJHkhB AOpMZK6MXMgJWRyrRohwn0jsV 9wIi8+DIrik9eyw2ehtZm0YsS w YWJvffMdkYmhBWM1m2IaDu79T 9RomAdvk5KyXya6qe57kJLjz1 T4zDZ9LCiuSZFmbC9sQTyiZaN 6 HKCwLxMxnO99jQKmPNvxMl6sr UoyhFefCE5dCYBufbgbDSSzdV 1rTXHdaUSlcPwrAP9jJJMkrfe m d872FuVnCNR7YHUotITpG2Ocg A5yEeFiQBCiSZLlI7WlqSAdEU aoK004AKxeClG4XMNsnbZjP0T s VCYyhIbnYzO5o2K5Iy2Kt4Ftg haaEZB1HBjoHWZfTlG7AyBoNh M3L9CvQva4WYQxxRumHB9xF3D h FXQjmxsqcesudFR1NMDxWHShm C08aQSaNPqdSd2iz7X4o155VJ JgZHEmwK45Wz2xwVguHLQesQM U rA1txrdnm3rlujrvJnVnTYEkH Je5FYl5FBIspCjwQdWwBIB0Rx Q8NXB2rZEzhV2uzXulzloglX5 w Oyc+M15anJ1zOPO3WHN1defkJ XCqaxXgGE52OI36T7HjGcbokJ FibGU+QSHqvfAkoSifQA2mOlI j q0uiz1UbHDscM8KiCJTlOTgzK ko8IIIjGUP6xRT5dE7vPQFpDY tjz5O5bFK7P0QpcgLcfz9wm3r s CPJpHCyoQ49khIRnh0E4MHJgd XF9PJMecZoiHiPlkC89Oav+PG JtbYdbd1RmGvbbc5gkw8fkeTb 9 TtLuDXFaemAxgUnxUFA1v1SlR m32Z59wGVvhMSGcFGEsJBMfAX YngShtyy9kgS3pTa7+PGNvbCB 3 mPA7xP3hIUEhAaM5TFkqY643Z kEeaAKiCvcjw2vcm6qmhAk4Ql TcZWTqxuQirQyuDWC6k0OySp8 8 Y72zMKccZRGuKRCdLYAsCCEci Qckwx3aoI8hHs8+RL9gc0owxj 47jP08oHL+WKRoJEZ6gLihHFr w FLYjmT4aHVueScW4OFYgPkLox C52kYLoFGpsDx3qqYbcpOdoDB 8jCZUsnauwr078ZsJsj6gsMFU w fBEiLRcdYIE2Q73mp6R0HANvQ FBxUHT4vLA9uA8ayQkcyjpuqI YflElptzHtjZmrXSdwPXerH05 6 IHRvcDsnPlBhdGllbnQgTmFtZ Kp6L8SlEwl0SYFyjSwfMN8fpQ ZeBUpgUm4lfIvmnQyoAA2nDWA p fngmi189ViJwc6huGVUvfJMyQ FpjFSG4N19lo9I5HNJhBUCvMQ S5pQJ5dZ3jrFdlmrzitIYbkMm g bjQgfOqtITarHAgrZ234RMOme ArrGvZxbeZgWAKbwMS7KS43TL 35qFBuo6Z4hDE9I2OwLKWlgrn t meticTQ9YFMsWTIzyJ82Cj5to HqnNd0jPFVwDUL0MZSxyPYuE8 HjoG4dQyDfRSVeCELuH1TkiSJ t JLguG411JJxeJyH6KWAgkvGfW 5UmHUWagTwaJtF7y6N1Cf1CW0 A5OQ09EW56sCGwy9C4cES9Y0J h ABBcvxjuxkerdII5UHBoQFZfx J63Qf1abKpoPb6tYMCrPFD3IL PrdWRnW4KtmZ9mIjYsLGXwVUN w Z7NnyYPkSQohF066LZzhVjC3N JErsaMdU0ChSLUroTmhTjL6o5 M5Oc2WXWf2IZ34GX91bTDhv8I 5 qFQ7O8ZrAHGwqbtdaiiurTP9K NUmAHOnrJ56Kf8eyEpwIt9xBV GdMUT1YARqvWTjF6XppR7iNkF j JSMfMNKpT1IlbRHqEYwnU699P YxmBmX4GXNojhSgG9ZvJPPeiP yqJvC3f0X9Ew1CRETmPI35JIY 5 sPT9AF91PU78S2MsFlxvbGXxw +PHRhYmxlIHdpZHRoPScxMD QdAtHvdIxuAH9sAw8uXAKeIRJ v aZlgjAKyRjHvq1mzJVPaXTvoY B9fkEgnF5BqiKF3ERLha6l8Fx 18N89eE2JevBX+LYTaxMA3pGT 0 iG9aBfKbIeL7BCseH564JdRzp PJpTiraq6fcw0iqdDr6HaZ8YG BcieTouAcoHVP5v9LzHw49N41 s IHdpZHRoPSIxNSUiIHZhbGlnb x0zpT1mFt9+VYYwdXM7qQH1cB 5aHaRxUmT8WJvxT789WdKxzCD v Mmznx4rtk1yxkZy6XcHuLUFgr vQcmMveXGJ6f9IoIy78Y6YloV xkb4WdCht3js23hBWon3T3rCJ 9 O7VpATUdyjadfFRxbXnkQL1vA FCgqyxsWCGsrH7xNTRvW9s7Xx ZlGtG4HXqpW2KrqoP9EDMlbWY g YTafOBA0N06uo2G5GGAsBTPpW NR9pBE6cG9ilItiywwibQXgmJ reklYwqBuvONenQOygL425ENE v nXjzLHUmkA9wUIYdcGJtqOykL H0bAAWorgnlHkRPXVMJUTySSO dhGOpMICAMVFJ4W0VsYjh1NQA z cRqhEF2inQLyJNxwUt3wuGjot YwqJX7sDZNnfumeWAMdvA2hMK MyiUGkqGnfQD6mNVGwlorjl80 0 DvNoCIK1SSVkhAOpV3EkqT1jH gPcJTTwCVVmH3DzbMThNEgtC4 01RGdpHjY1SNItnaEqQ0JmOWS s aRvzNtW4y3P6Ax1rEm7iRV0qZ PM3AN37QK70yJMty9I8gQF6J6 JuUHHbrhjmgooajSI6KVEgRIL w pK65xKSpSGbtSm0jk0Y2k554A FBxIBAyiI52Is9ynOsrFAHdjB WLkB7ozzfqt4fjslyiMyDaPEC w SIw5RTa5MMIdbXbyHqYwCEE5B zS4TOL5qNVcpZ5gbLxjompwqJ 9wOyc+PGKvVMNgbiU7S4RgPps 0 POWsgKahRG2xuXLhVGraHt1ah FnimXkmEX1dGEEcapwyBAZukO 4zATZreOZwwLukFK8cGKRonza m e843QiDhPTY2DXGtbJDgE8Rxn V3jYwUzKNFyOCQqW9WyyHXcAC dzJ072UNdjHuD1GGJlsbDoS9M s RBPabCltMcO0x2L1Px2MSYkKY I57NR51hNAln7Y2iRW9U2UaFL LzbjmyvihgzBB3HIIeCDBdkK4 7 eBGgFBgtHu7ck0P9j711YEAoY UAvmL36Yo7wvOnvKDTggCBUoB 6qqjugp4cwufpxOeMhBTGhHOd 0 RFo1MRBcuCijRbIqAEN1XnP6N WT6dIZggF3pmRlumlgutE3pDq c+F9O3T1NtBjwhaDS+AC25LAH s TI52cHLmxBZcl8grqOz1TeCqH GDaICT3eErcHPmsi8OgUAWsQ6 5plOUws0G9TIEwgYrzrDZrEfX l wKG6nM4uMXlplhftt5zofaxsA lxvd7txyb89mA27S71qUAegPX EuPYOxKOOrDVLwsBigjs4urA8 w Ii8+KMUvdDG1iQJ9sZ6nYjGqC rO7IPfcT244CqIvhFRcKelie6 ryb7ubxZl5ZsVhGSPvbzPytUz u EHP2i9SzNu89K11vJDxcUJOtT REvYNVeCVNdqZhbpl9qkL5kOv 8+JI6qc6pyly49fW67wWB+PHR k UJY5uDmtJEoqKBHlaV7oPIkeC mR4BNHxMzMauN01bFJyODelZj 9rkLcojKcuSL4zEHDksyrhl10 0 XjUsc0qyOKYymDWdTZjoZZP3K 41po2O9JIMbTNEhVBG2mET5aJ 1hbGlnbjogbGVmdDsgdmVydGl j PSguJBkpR001UBFqxYefJmTor HPaC8nmauCPXI0cBgbfyKH+PH HoPIL0aMdlHHalJCCsfC2cUZN p H3h2VkOoOgM3DKtkR7KdarR4P BAfvGIeHDVcpKSEiU8pauhqz0 cehjwxFrPvEBQpDRe6HXf1TMS s mOacRbFjVLD8LtH6XKX9yPUrt V2agHthodthbW6gUba+RklOOj wvdGQ+YEIxMEG0wOcbWIrrGGO k fJ4mKQEkX0y9CuIiYdX4CUnaC 8VvztJ3DSLthEZyESYsmSOFqY 5wqnuqg4idebbbCdUnDEVzBJv 0 JFb0OQBbaAfcZjLnWDD7QqN2Q YV1sBDglG9lyUjdlktfhI1vLu c+TVJOOjwvdGQ+MJUqIHS4fGi l RKtkDMYvbS5uAFXlM5f8NjJmG xM5LMxzH1AjquM4CXNecZWtWF ErbOLAzR6qzemwd2hxvnypBsZ w EEHgKLw0MJw5FUTzxMqbUiRwT TY7HjP5WWJ5sMLivW0fqUaquo usxE0rTjd+LVA6EAH7FF81VP0 8 O7WsSqczpZWdiEL+PHRhYmxlI HdpZHRoPScxMDAlJyBzdHlsZT 7kJm5jHWKgLSIhbPcslAYrOyG j b2x (more content not included)... Normal [facility] C Urineon 10-10-2022 C Urine >100,000 cfu/ml Staphylococcus aureus ORGANISM SA SUSCEPTIBILITY ORGANISM ID: 1 ANTIBIOTIC INTERPRETATION MARCEL STATUS ORGANISM SASA Amox/Cla S <=4/2 Verified Amp N/R Verified Amp/Sul S <=8/4 Verified Ceftri S <=8 Verified Cipro S <=1 Verified Clinda <=0.5 Verified Dapto S <=0.5 Verified Eryth <=0.5 Verified Gent S <=4 Verified Levo S <=1 Verified Linez S <=1 Verified Nitro S <=32 Verified Ox S <=0.25 Verified Pen S <=0.03 Verified Rif S <=1 Verified Tetra S <=4 Verified Tri/Sulf S <=0.5/9.5 Verified Vanc S 2 Verified Normal [facility] Comment on above: Performed By: #### [id number] ####[facility] (DEFAULT)[address] [place] [address] Coding Summaryon 10-09-2022 Coding Summary HTMLBase 64 XugbmnpfHFf6uEp+PGhlYWQ+P M4JWQIyB95duXObpF2QM1uWUB 6QRZBIQPPNBZ6IZK4ldCV2YUr cR6QkkrNk PudghSOoSG21RHf4ZHN4cBkpT NcmhW1oeERtN6y4HrZbQH34bM 16MRdbLUGkDoA4YlQklzyffVV y Z0xkFiGafAVwHbn+PHRhYmxlI HdpZHRoPScxMDAlJyBzdHlsZT 9fVx9eQADbIGEujLuquLGoBaN j d6erYPGgRLcoIK0wlOfjG3Avx BH1LNCny6d0Gl44rVE+PHRkIH F9wCgdDDoqd023PyEjc5ncOSO 3 gBHkQDtfJZE4J33xi8P8PKUmT ZAhMDQ8tGJ0kS2uaTsptrmuU3 JftAUtXrW4LSF4rQLcyY5igTu n eijmdG0bMer+T52YXN8ZJQAJO J7WNmb1Q7XdMuehoNW+PC90YW QnTI03uOHrfVOiv6opdTw8LoF w UNSiTGF3nMjhYUeat7PpBEUpY 65baTPhb5Q6MSElkUmaxKOiUj TunKW3sX1wSCrennxgw0kxwjz n Yummx2awaz45gU60M73hHKyhD BHyUQM0RZMvRNMxzFajwl4ghK 9wIi8+VQmit6jhc5eilId0TaM w EMVupuIfgEmkAOT6l1UnHu52Q 1LupDboc0FqSmq4ia74hFQta1 W3iGS8YLsnFDCbnO0dPWvaSlC 6 GBPsZqHjnA99zTEkPVmzAk1ho ZdduOzgBA7xABRobykjKCAvkT 3zTMQnqVGnpRhxRO0uGSHennb m e703FfEfRWD6OGCnjXIjV4Jwc M5yWyUjQUDiCOLiD8CkrUWlTU whC100RMjeJgZ8AIQmwbClY3U s MLAtuXygViQ1k4M0Rb8Oj6Voi oujZGG6HUkwKMNdOyX6PaVoFb J3F0ZtYgy4SZWnuUhlJC1gP7C h NONplqherqoopWK3FETqXQGfc H35dXAoLGryBk0zv5A8t587FV MeJMAsfX88Pd4gxVtuOUTaeDW U vN4uqfzxb7lcmaqoVeThJATgJ Ij0HNl9YVCfoZouQgWuNAJ3Gf O0SQZ1mIWkaG9zqGumxcwmoT9 w Oyc+U56rqV1lHEX7CXW0xqulF WSlrrYmGV46TQ01I3RxRsvkwI FibGU+ZWPfymTdcIstVH3hEvE j t6vla8PjAWujT1OgIQGqYDcyP yn5QVSlHEH4uPP4tY0kRMGcZO tfh1I3dYJ0D5WltcMdti3yt3b s ZYZeENyuI14ajHPtg1Z9DVSev AF8WNSycRbhCvZlbN21Jqv+PG LjoEhwv5SpIhjls3zyq1ouyAs 9 SjHgABQcqnUciMtfLDQ9w8QaT l88O70vKZqcDLCvTIYtQCSbXF RzmFynpc8zbG5pZo8+PGNvbCB 3 pZU9oG2mSTCrIfJ7TBatM935M uIaqWMnYbvnl1eev2ggpUi2Ym PcECMghjVmhYkhVDR8z8FiEr5 8 Z11nDRrzBEKdMGHmDVKsABEps Ysxxq8xkV7sKs3+CK5td3emrh 51vR37bOB+OPSeQBB4kVeoOHx w AMAumF4hQUsxTjP9QVIvSeBkg W62iZDyIZloKq0nbBnbvYilYH 7oCANyyvwvr923SnHej5doNRO w jPUjPWvjEGE5D63sy5T0LHWuK JAnNGI1aQS3uI1mhFbkhmmbvD SrnLkudzKpnWjhXSsiDAgyL37 6 IHRvcDsnPlBhdGllbnQgTmFtZ Uw9R7QcTbn4VJVkmIjgVY6vsP PsLUjsJm1noYdaiJgbKY5nJHQ p odfew106TgWcj3wrKCPriFPqF SakSQF8V40ls0J1ZVXtHHBuNY J2lEX8oW7hmRhrqfgbmNXggXa g nbEvdPkpQJpkITonF858VFJfz NfgZnHaxaSsYWFamLU2IZ56WN 57cMClf8A6iSD6A8YbLJNrrgy t kytnnIV7IPCuREKjaW05Ky2sx RayVw4bOYKhSFQ4HEQzjBGpJ9 RroN6yIfAhCGCzYMRkX2KrfPT t VXeuN851HYcbBwQ0PRPazbAvT 8HaWLGoyNqrGeS3m3G1Th9LW9 M5GU65OF80rQWww4S2uHO1K3F h YJGgfzvrbaxhiNQ7RLNyQHAbl C00Aq2ajIlqUy9zTERhPZC5DB KegYBiO3FhrV7wDcHsVETaEPS w H3EcsLBeOVgsK965CZtpWuF6X LWtihEwU1PzKHXcbUikGvK6z0 S4Rx7WHWz2KB35NP70jYYfj0W 5 gJW3W8DyNLPtgixzxqfdhNU3Y RWwWZMxwP12Ty9vgNsuWs4aVH WjEXD8WLUguHBdM7TybA5pYfX j NGYsERSuL1AtqNEjILveF507R FkwAdN0UQJwqlLxI5TePOUosQ gwTtZ6o4U6Gn6XXGVyOD18GJY 5 uKB2NG15JL74I3UsCykmkIZvy +PHRhYmxlIHdpZHRoPScxMD QeTqEhbLchKN2vRc8fGLExAQW v cAthvYBzSoFsn0cnBHAmLNriV R1vlLhpB7BboRY1JTIaj2z2Sk 02K28mD8YiiKK+JXZfyKT8dZX 0 jZ9iBwTiTvG5WAhnN523BoFbm DWsWbpew2cmp2bxsZy2QgK9SP EetfAxeSczARL4o6HmBr31Q98 s IHdpZHRoPSIxNSUiIHZhbGlnb w3suD2vAb4+DQFcbLG3aZI1fC 6dDmKhDmX2GXipL633YxMezDW v Qirvt3xkp1thwJc7YoWwEWSwh xJfsQqiXXX3d0BoVc08D7RdcG thk0PvIch7ut87vHLpy4A6wNZ 9 V4JoPLXcyvuuiDNrwQhvZC4jC PVqruluGJWdgQ2cFTRfN4j1Ow YcFgT1JIxhI8FmspY1KZLcfBH g LKjwXFT1H37rm5O1XHWmONCdE FC6jEC8sL2zgQzkxtghiTGqfY atvrLpvUcxKXsqGJrvB898DRR v wHhgOIGhcG9vSIFlfOUuzFknI T0rCXFosawhHaOTHWDMJNiLOO wtMKoUTAXNKHH4G4HsQkc7MSN z pDviLY8unPXmPEveYr4wnCexg IpwQD0tOKSwmuxrNPQqbR4fEG MahHTyeIkiPP2yCFEcbjpzc39 0 XgMvJDK7QYUxwQInT2WdvO9fB xWuEWAdIJMvX9DopQGoDUwgN7 92YIjgYxJ4WULjpsStP3HjMGR s qQoeFtV9j2K7Vh2rYy2tAS2rM JM6LC99TP91pOBdi9Y2dHN4B5 DiSUNorewrnnlmwJR7DYAnBFS w iW56gNYfAPccDa0gk6E1j426Z IMyQJFnaF41Rl0oxZsoEARfqG OQcN2zvquip6pnzcwtLfKhNJP w KHs6KSr3EBLtwOvyLhWrMQN9E qP4FRQ3fZMsfT0gvNlpynrnhS 9wOyc+TSNuZNSfasZ2E4CwOoa 0 WUUalSbxZI6rpBPvHWmtDw9yn ZlwuPymUU7uKCLzlhtpMUWuaU 2oOIElgMIgxQwpMN8aAXBmvvp m o261ZwHcXGF6LVKcyPDoB6Cbe T4aQdFyNVCaVUIcQ5VoqERqRZ jhS788AFpkUyM8SWYetcFqR9Z s IEBceAcwRsC7y3V2Sv4LGVqJC E18CV71wHHqm0N2jXG0I3FcJI BgtatfnmdtyRE9CENpUNUugO6 7 dMApEYztYv7ed4P6x323LMSzG CIjcD96Ui2jeInbZWEfaUELbL 6kvygjz5dykckfWsFgGEVgWQe 0 DOl3CEGemFccYjYaUEG2XmE9D BP6aKKnzL5vjZrcrhqrkX2xDt c+X2M2H2JgXlpxfPP+BP42BQZ s KP91dGXbtEOhu9ffjTu3SgQrH DHzCXR4vItiLVnvk0JdUPUbQ2 9fxTXec9H2TDGxaFujxYHbTcM l fMV3oG7eBMjlvwggd7diebarV ggki4ifps16vX55H61rOMayQC CaWRXdXLWvTPWdpWsbch3vdX4 w Ii8+NUWmcIG6oGI7rG7nDeDtN rM2UMiiH842WsRqwKXoCfvnm9 ued8pmyLu4ViPzUWCiawPjyWv u FXD9n2RfWn43X08bHSlbFFRbI JAyQYSbKQRtdSzasb0njA9mXl 8+FQ4ck6vnnp96vN47jBB+PHR k MNX6uIbdMLmdCHSukC0sSQiwY aB3LJFxZpZswI04yXMjTYviPs 7ctCpreNaaDE3bUAJdpfdvh23 0 JoLjj9hnBIDabTBuTEyxHXZ9K 46ra3N9EZTbPWSiDPO2wYB1kY 1hbGlnbjogbGVmdDsgdmVydGl j CLnhLShnE290VKAxvTuwCcDoh WWkB3njftUNOG0aEqpdgRS+PH TdRZQ9tJhkLNbmRPCtsJ0pKHR p I5j5QzVtHsZ8RQbzU9HyvfN4E DIdfVXxAPMpvLKPdV7spqvqk4 leualgZxBzRCLaNBb9VGu3LPV s nSbiIcMsLMK6NjS8WLS7lRXug L2upNluwumoyE9oWie+RklOOj wvdGQ+QPBnQPG9sVeeRJalBZZ k tQ5tAMBaX7z0YqOjEjT5XOhkJ 0VmwuI6NLOimITfGPOkuTRBwC 0qhkmmz0kckudsCsRjJRUrCYf 0 IKm7GOOheFjyQtPvYYO7BeI6I GY3kHPoxA0uvJvmuwlxrM9tPf c+TVJOOjwvdGQ+YYUuTJU3vNk l XMltJAVchG0zBBOdO7e5NsZhB mA0EUxeV8UipwV0IVOouNVjEQ SmoBWFxZ8jxpfum6fkqkklLxW w OTWuVTr7IUe3HAHgiTmoUfXoX JE8KlZ8XTK7tIWreP8rxLyvmw emnZ4lPzj+TMF7INO8YN69KR6 8 Z3FdDywncKOltDH+PHRhYmxlI HdpZHRoPScxMDAlJyBzdHlsZT 0pDq5eSJMkONUpbZiekFRlEcL j b2x (more content not included)... [facility] Progress Note - Nurseon 09-26 Progress Note - Nurse PAT review done per Dr. Marvin, no orders received. [Electronically Signed on: 10/09/2022 13:35 EST] Yessi Alvarado RN [Verified on: 10/09/2022 13:35 EST] Yessi Alvarado RN [facility] .Auto Diff 10-06-2022 Auto [place] % 8 % Normal -12 [facility] Comment on above: Performed By: #### 7 [id number], [id number], [id number] ####[facility] (DEFAULT)[address] [place] [address] 13294 Baso Abs# 0.0 x10 Normal 0.0-0.2 [facility] Comment on above: Performed By: #### 7 [id number], [id number], [id number] ####[facility] (DEFAULT)[address] [place] [address] 47987 Basophils/100 WBC (Bld) 0.3 % Normal 0.2-2.0 [facility] Comment on above: Performed By: #### 7 [id number], [id number], [id number] ####[facility] (DEFAULT)[address] [place] [address] 69977 Eos Abs# 0.1 x10 Normal 0.0-0.4 [facility] Comment on above: Performed By: #### 7 [id number], [id number], [id number] ####[facility] (DEFAULT)[address] [place] [address] 96925 Eosinophils/100 WBC (Bld) 1.7 % Normal 0.9-4.0 [facility] Comment on above: Performed By: #### 7 [id number], [id number], [id number] ####[facility] (DEFAULT)[address] [place] [address] 51626 Lymph Abs# 1.8 x10 Normal 1.3-2.9 [facility] Comment on above: Performed By: #### 7 [id number], [id number], [id number] ####[facility] (DEFAULT)[address] [place] [address] 37303 Lymphocytes/100 WBC (Bld) 22 % Normal 14-48 [facility] Comment on above: Performed By: #### 7 805778, [id number], [id number] ####[facility] (DEFAULT)[address] [place] [address] 00383 [place] Abs# 0.6 x10 Normal 0.0-0.8 [facility] Comment on above: Performed By: #### 7 [id number], [id number], [id number] ####[facility] (DEFAULT)[address] [place] [address] Neut Abs# 5.4 x10 Normal 1.5-9.2 [facility] Comment on above: Performed By: #### 7 076208, [id number], [id number] ####[facility] (DEFAULT)[address] [place] [address] Neutrophils/100 WBC (Bld) 68 % Normal 44-88 [facility] Comment on above: Performed By: #### 7 018836, [id number], [id number] ####[facility] (DEFAULT)[address] [place] [address] BMP Standardon 10-06-2022 eGFR Non AA 50 mL/min/1.73m2 Invalid Interpretation Code [facility] Comment on above: Performed By: #### 7 700161, [id number], [id number] ####[facility] (DEFAULT)[address] [place] [address] eGFR AA >60 Invalid Interpretation Code [facility] Comment on above: Result Comment: [employer] jono Kidney disease could be indicated at eGFRs of less than 60 ml/min/1.73m2. Kidney Failure is indicated at less than 15 ml/min/1.73m2 Performed By: #### 7 361896, [id number], [id number] ####[facility] (DEFAULT)[address] [place] [address] Anion gap [Moles/Vol] 11.0 mmol/L Normal 5.0-19.0 [facility] Comment on above: Performed By: #### 7 362624, [id number], [id number] ####[facility] (DEFAULT)[address] [place] [address] Calcium [Mass/Vol] 9.0 mg/dL Normal 8.9-10.3 [facility] Comment on above: Performed By: #### 7 622693, [id number], [id number] ####[facility] (DEFAULT)[address] [place] [address] 61793 Chloride [Moles/Vol] 103 mmol/L Normal 101-111 [facility] Comment on above: Performed By: #### 7 541268, [id number], [id number] ####[facility] (DEFAULT)[address] [place] [address] 29391 CO2 [Moles/Vol] 27 mmol/L Normal 21-32 [facility] Comment on above: Performed By: #### 7 097140, [id number], [id number] ####[facility] (DEFAULT)[address] [place] [address] 00222 Creatinine [Mass/Vol] 1.35 mg/dL High 0.90-1.30 [facility] Comment on above: Performed By: #### 7 795695, [id number], [id number] ####[facility] (DEFAULT)[address] [place] [address] 11683 Glucose [Mass/Vol] 131.0 mg/dL High 74.0-118.0 [facility] Comment on above: Performed By: #### 7 913631, [id number], [id number] ####[facility] (DEFAULT)[address] [place] [address] 39310 Osmolality 280 mOsm/L Invalid Interpretation Code [facility] Comment on above: Performed By: #### 7 220752, [id number], [id number] ####[facility] (DEFAULT)[address] [place] [address] 26985 Potassium [Moles/Vol] 4.2 mmol/L Normal 3.6-5.1 [facility] Comment on above: Performed By: #### 7 856803, [id number], [id number] ####[facility] (DEFAULT)[address] [place] [address] 96140 Sodium [Moles/Vol] 137.0 mmol/L Normal 136.0-144.0 [facility] Comment on above: Performed By: #### 7 236891, [id number], [id number] ####[facility] (DEFAULT)[address] [place] [address] 25666 Urea nitrogen [Mass/Vol] 25 mg/dL Normal 8-26 [facility] Comment on above: Performed By: #### 7 957517, [id number], [id number] ####[facility] (DEFAULT)[address] [place] [address] Urea nitrogen/Creatinin e [Mass ratio] 19.0 mg/mg High 4.6-16.2 [facility] Comment on above: Performed By: #### 7 035423, [id number], [id number] ####[facility] (DEFAULT)[address] [place] [address] CBC w/ Auto Diffon Erythrocyte distribution width (RBC) [Ratio] 13.9 % Normal 11.5-15.0 [facility] Comment on above: Performed By: #### 7 269904, [id number], [id number] ####[facility] (DEFAULT)[address] [place] [address] Hematocrit (Bld) [Volume fraction] 35.0 % Normal 34.8-51.9 [facility] Comment on above: Performed By: #### 7 144266, [id number], [id number] ####[facility] (DEFAULT)[address] [place] [address] Hemoglobin (Bld) [Mass/Vol] 11.2 g/dL Low 11.8-17.7 [facility] Comment on above: Performed By: #### 7 990991, 53386969, [id number] ####[facility] (DEFAULT)[address] [place] [address] Instr WBC 7.8 x10 Invalid Interpretation Code [facility] Comment on above: Performed By: #### 7 981295, [id number], [id number] ####[facility] (DEFAULT)[address] [place] [address] Man Diff? Auto Normal [facility] Comment on above: Performed By: #### 7 411657, [id number], [id number] ####[facility] (DEFAULT)[address] [place] [address] MCH (RBC) [Entitic mass] 30 pg Normal 24-34 [facility] Comment on above: Performed By: #### 7 839106, [id number], [id number] ####[facility] (DEFAULT)[address] [place] [address] 23151 MCHC (RBC) [Mass/Vol] 32 g/dL Normal 26-37 [facility] Comment on above: Performed By: #### 7 667388, [id number], [id number] ####[facility] (DEFAULT)[address] [place] [address] 56716 MCV (RBC) [Entitic vol] 92 fL Normal 81-100 [facility] Comment on above: Performed By: #### 7 565566, [id number], [id number] ####[facility] (DEFAULT)[address] [place] [address] 37321 Platelet 290 x10 Normal 138-427 [facility] Comment on above: Performed By: #### 7 468323, [id number], [id number] ####[facility] (DEFAULT)[address] [place] [address] 26922 Platelet mean volume (Bld) [Entitic vol] 10.6 fL High 6.3-10.2 [facility] Comment on above: Performed By: #### 7 778174, [id number], [id number] ####[facility] (DEFAULT)[address] [place] [address] 18669 RBC 3.80 x10 Normal 3.70-5.30 [facility] Comment on above: Performed By: #### 7 029480, [id number], [id number] ####[facility] (DEFAULT)[address] [place] [address] 36142 WBC 7.8 x10 Normal 3.5-10.5 [facility] Comment on above: Performed By: #### 7 109947, [id number], [id number] ####[facility] (DEFAULT)[address] [place] [address] 69599 Main OR Preoperative Recordo n 08-06-2019 Main OR Preoperative Record PreOp Document Type FT Summary Primary Physician: Dakotah Bae DO Finalized Date/Time: 08/06/19 14:53:22 Pt. Name: KALYAN HERNANDEZ /Sex: 1935 Male Med Rec #: [id number] Physician: Dakotah Bae DO Financial #: [id number] Pt. Type: A Room/Bed: [place] [address] Admit/Disch: 02/04/19 08:34:00 - 02/04/19 12:15:00 Institution: Case Times PreOp FT Pre-Care Text: Verifies consent for planned procedure, identifies individual values and wishes concerning care, includes family members in perioperative teaching Entry 1 Patient Times. In Pre Surgery 02/04/19 08:45:00 Out Pre Surgery 02/04/19 11:10:00 Outcomes Met? Yes Last Modified By: Isaac Coffman RN 02/04/19 11:25:31 Post-Care Text: The patient participates in decisions affecting his or her perioperative plan of care Finalized By: Larry Trejo RN Document Signatures Signed By: Isaac Coffman RN 02/04/19 11:25 Larry Trejo RN 08/06/19 14:53 Normal [facility] EVENT MONITORon 06-13-[address] [address] EVENT MONITOR PATIENT NAME: KALYAN HERNANDEZ : 1935 MED REC NO: [id number] ROOM: [facility] ACCOUNT NO: [id number] ADMIT DATE: 05/20/2019 PROVIDER: Sharona Campo EVENT MONITOR 336:01-hours ORDERING PROVIDER: Duane Montenegro PRIMARY CARE PROVIDER: NIHARIKA Aguilar INDICATION: Stroke like symptoms COMMENTS: The patient appeared to remain in sinus rhythm throughout the recording with sinus bradycardia and sinus tachycardia noted. Rare PAC's with pairs were noted. Non-sustained PAT was noted with the longest lasting 21-beats in duration and the fastest peaking at 161 bpm. Rare PVC's with couplets were noted. The patient appeared to be asymptomatic throughout the recording. IMPRESSION: 1. Sinus rhythm with sinus bradycardia and sinus tachycardia. 2. Rare PAC's with pairs, 3. Non-sustained PAT. 4. Rare PVC's with couplets. SHARONA KAYLI /JESUS Doc#: Unknown Normal [facility] Basic Metabolic Profon 05-23 (cont.) Normal [facility] Comment on above: Result Comment: Aver age GFR for 70 or more years old: 75 mL/min/1.73sq m Chronic Kidney Disease: <60 mL/min/1.73sq m Kidney failure: <15 mL/min/1.73sq m eGFR calculated using average adult body mass. Additional eGFR calculator available at: http://www.ethority/multiple_crcl_2011.htm Performed By: #### C DP, BMPX, FEBC, FERI, TSHX, FT4 #### [facility] [employer] [address] [place] [address] [id number] Handkerchief Folder: Pa Sharp MD Anion gap [Moles/Vol] 11 mmol/L Normal 9-17 [facility] Comment on above: Performed By: #### C DP, BMPX, FEBC, FERI, TSHX, FT4 #### [employer] [address] [place] [address] Handkerchief Folder: Pa Sharp MD Calcium [Mass/Vol] 8.4 mg/dL Low 8.6-10.4 [facility] Comment on above: Performed By: #### C DP, BMPX, FEBC, FERI, TSHX, FT4 #### [employer] [address] [place] [address] Handkerchief Folder: Pa Sharp MD Chloride [Moles/Vol] 107 mmol/L Normal 98-107 [facility] Comment on above: Performed By: #### C DP, BMPX, FEBC, FERI, TSHX, FT4 #### [employer] [address] [place] [address] Handkerchief Folder: Pa Sharp MD CO2 [Moles/Vol] 24 mmol/L Normal 20-31 [facility] Comment on above: Performed By: #### C DP, BMPX, FEBC, FERI, TSHX, FT4 #### [facility] [employer] [address] [place] [address]392 Handkerchief Folder: Pa Sharp MD Creatinine [Mass/Vol] 1.45 mg/dL High 0.70-1.20 [facility] Comment on above: Performed By: #### C DP, BMPX, FEBC, FERI, TSHX, FT4 #### [address] [address] Handkerchief Folder: Pa Sharp MD GFR, Amer 56 mL/min Low >60 [facility] Comment on above: Performed By: #### C DP, BMPX, FEBC, FERI, TSHX, FT4 #### [facility] [employer] [address] [place] [address] Handkerchief Folder: Pa Sharp MD GFR,non Amer 47 mL/min Low >60 [facility] Comment on above: Performed By: #### C DP, BMPX, FEBC, FERI, TSHX, FT4 #### [facility] [employer] [address] [place] [address] 299[address] Handkerchief Folder: Pa Sharp MD Glucose [Mass/Vol] 109 mg/dL High 70-99 [facility] Comment on above: Performed By: #### C DP, BMPX, FEBC, FERI, TSHX, FT4 #### [facility] [employer] [address] [place] [address] Handkerchief Folder: Pa Sharp MD Potassium [Moles/Vol] 3.9 mmol/L Normal 3.7-5.3 [facility] Comment on above: Performed By: #### C DP, BMPX, FEBC, FERI, TSHX, FT4 #### [address] [address] Handkerchief Folder: Pa Sharp MD Sodium [Moles/Vol] 142 mmol/L Normal 135-144 [facility] Comment on above: Performed By: #### C DP, BMPX, FEBC, FERI, TSHX, FT4 #### [address] [address] Handkerchief Folder: Pa Sharp MD Urea nitrogen [Mass/Vol] 21 mg/dL Normal 8- [facility] Comment on above: Performed By: #### C DP, BMPX, FEBC, FERI, TSHX, FT4 #### [address] [address] Handkerchief Folder: Pa Sharp MD BUN/CRE Ratio NOT REPORTED Normal - [facility] Comment on above: Performed By: #### C DP, BMPX, FEBC, FERI, TSHX, FT4 #### [address] [address] Handkerchief Folder: Pa Sharp MD Staging: NOT REPORTED Normal [facility] Comment on above: Performed By: #### C DP, BMPX, FEBC, FERI, TSHX, FT4 #### [address] [address] Handkerchief Folder: Pa Sharp MD CBCon 05-23-2019 Erythrocyte distribution width (RBC) [Ratio] 13.1 % Normal 11.8-14.4 [facility] Comment on above: Performed By: #### C DP, BMPX, FEBC, FERI, TSHX, FT4 #### [address] [address] Handkerchief Folder: Pa Sharp MD Hematocrit (Bld) [Volume fraction] 31.5 % Low 40.7-50.3 [facility] Comment on above: Performed By: #### C DP, BMPX, FEBC, FERI, TSHX, FT4 #### [address] [id number] Handkerchief Folder: Pa Sharp MD Hemoglobin (Bld) [Mass/Vol] 10.2 g/dL Low 13.0-17.0 [facility] Comment on above: Performed By: #### C DP, BMPX, FEBC, FERI, TSHX, FT4 #### [address] [address] Handkerchief Folder: Pa Sharp MD MCH (RBC) [Entitic mass] 29.1 pg Normal 25.2-33.5 [facility] Comment on above: Performed By: #### C DP, BMPX, FEBC, FERI, TSHX, FT4 #### [place] [address] Handkerchief Folder: Pa Sharp MD MCHC (RBC) [Mass/Vol] 32.4 g/dL Normal 28.4-34.8 [facility] Comment on above: Performed By: #### C DP, BMPX, FEBC, FERI, TSHX, FT4 #### [place] [id number] Handkerchief Folder: Pa Sharp MD MCV (RBC) [Entitic vol] 90.0 fL Normal 82.6-102.9 [facility] Comment on above: Performed By: #### C DP, BMPX, FEBC, FERI, TSHX, FT4 #### [place] [address] Handkerchief Folder: Pa Sharp MD NRBC Automated 0.0 per 100 WBC Normal 0.0 [facility] Comment on above: Performed By: #### C DP, BMPX, FEBC, FERI, TSHX, FT4 #### [place] [address] Handkerchief Folder: Pa Sharp MD Platelet mean volume (Bld) [Entitic vol] 11.4 fL Normal 8.1-13.5 [facility] Comment on above: Performed By: #### C DP, BMPX, FEBC, FERI, TSHX, FT4 #### [place] [id number] [place] [address] Handkerchief Folder: Pa Sharp MD Platelets (Bld) [#/Vol] 220 10*3/uL Normal 138-453 [facility] Comment on above: Performed By: #### C DP, BMPX, FEBC, FERI, TSHX, FT4 #### [address] [address] Handkerchief Folder: Pa Sharp MD RBC (Bld) [#/Vol] 3.50 10*6/uL Low 4.21-5.77 [facility] Comment on above: Performed By: #### C DP, BMPX, FEBC, FERI, TSHX, FT4 #### [address] [address] Handkerchief Folder: Pa Sharp MD WBC (Bld) [#/Vol] 8.3 10*3/uL Normal 3.5-11.3 [facility] Comment on above: Performed By: #### C DP, BMPX, FEBC, FERI, TSHX, FT4 #### [address] [address] Handkerchief Folder: Pa Sharp MD Basic Metabolic Profon 05-22 (cont.) Normal [facility] Comment on above: Result Comment: Aver age GFR for 70 or more years old: 75 mL/min/1.73sq m Chronic Kidney Disease: <60 mL/min/1.73sq m Kidney failure: <15 mL/min/1.73sq m eGFR calculated using average adult body mass. Additional eGFR calculator available at: http://www.[employer]/multiple_crcl_2012.htm Performed By: #### C DP, BMPX, FEBC, FERI, TSHX, FT4 #### [address] [address] Handkerchief Folder: Pa Sharp MD Anion gap [Moles/Vol] 9 mmol/L Normal 9-17 [facility] Comment on above: Performed By: #### C DP, BMPX, FEBC, FERI, TSHX, FT4 #### [address] [address] Handkerchief Folder: Pa Sharp MD Calcium [Mass/Vol] 8.5 mg/dL Low 8.6-10.4 [facility] Comment on above: Performed By: #### C DP, BMPX, FEBC, FERI, TSHX, FT4 #### [address] [address] Handkerchief Folder: Pa Sharp MD Chloride [Moles/Vol] 105 mmol/L Normal 98-107 [facility] Comment on above: Performed By: #### C DP, BMPX, FEBC, FERI, TSHX, FT4 #### [address] [address] Handkerchief Folder: Pa Sharp MD CO2 [Moles/Vol] 24 mmol/L Normal 20-31 [facility] Comment on above: Performed By: #### C DP, BMPX, FEBC, FERI, TSHX, FT4 #### [address] [address] Handkerchief Folder: Pa Sharp MD Creatinine [Mass/Vol] 1.18 mg/dL Normal 0.70-1.20 [facility] Comment on above: Performed By: #### C DP, BMPX, FEBC, FERI, TSHX, FT4 #### [address] [address] Handkerchief Folder: Pa Sharp MD GFR, Amer >60 Normal >60 [facility] Comment on above: Performed By: #### C DP, BMPX, FEBC, FERI, TSHX, FT4 #### [address] [address] Handkerchief Folder: Pa Sharp MD GFR,non Amer 59 mL/min Low >60 [facility] Comment on above: Performed By: #### C DP, BMPX, FEBC, FERI, TSHX, FT4 #### [address] [address] Handkerchief Folder: Pa Sharp MD Glucose [Mass/Vol] 100 mg/dL High 70-99 [facility] Comment on above: Performed By: #### C DP, BMPX, FEBC, FERI, TSHX, FT4 #### [address] [address] Handkerchief Folder: Pa Sharp MD Potassium [Moles/Vol] 3.8 mmol/L Normal 3.7-5.3 [facility] Comment on above: Performed By: #### C DP, BMPX, FEBC, FERI, TSHX, FT4 #### [address] [address] Handkerchief Folder: Pa Sharp MD Sodium [Moles/Vol] 138 mmol/L Normal 135-144 [facility] Comment on above: Performed By: #### C DP, BMPX, FEBC, FERI, TSHX, FT4 #### [address] [address] Handkerchief Folder: Pa Sharp MD Urea nitrogen [Mass/Vol] 16 mg/dL Normal 8-23 [facility] Comment on above: Performed By: #### C DP, BMPX, FEBC, FERI, TSHX, FT4 #### [address] [address] Handkerchief Folder: Pa Sharp MD BUN/CRE Ratio NOT REPORTED Normal - [facility] Comment on above: Performed By: #### C DP, BMPX, FEBC, FERI, TSHX, FT4 #### [address] [address] Handkerchief Folder: Pa Sharp MD Staging: NOT REPORTED Normal [facility] Comment on above: Performed By: #### C DP, BMPX, FEBC, FERI, TSHX, FT4 #### [address] [address] Handkerchief Folder: Pa Sharp MD Hemoglobin A1Con 05-22-2019 HbA1c (Bld) [Mass fraction] 100 mg/dL Normal [facility] Comment on above: Result Comment: The ADA and AACC recommend providing the estimated average glucose result to permit better patient understanding of their HBA1c result. Performed By: #### L IPR #### [address] [address] Handkerchief Folder: Pa Sharp MD HbA1c (Bld) [Mass fraction] 5.1 % Normal 4.0-6.0 [facility] Comment on above: Performed By: #### L IPR #### [address] [address] Handkerchief Folder: Pa Sharp MD CBCon 05-21-2019 Erythrocyte distribution width (RBC) [Ratio] 13.0 % Normal 11.8-14.4 [facility] Comment on above: Performed By: #### L IPR #### [address] [address] Handkerchief Folder: Pa Sharp MD Hematocrit (Bld) [Volume fraction] 33.9 % Low 40.7-50.3 [facility] Comment on above: Performed By: #### L IPR #### [address] [address] Handkerchief Folder: Pa Sharp MD Hemoglobin (Bld) [Mass/Vol] 11.0 g/dL Low 13.0-17.0 [facility] Comment on above: Performed By: #### L IPR #### [address] [address] Handkerchief Folder: Pa Sharp MD MCH (RBC) [Entitic mass] 29.0 pg Normal 25.2-33.5 [facility] Comment on above: Performed By: #### L IPR #### [address] [address] Handkerchief Folder: Pa Sharp MD MCHC (RBC) [Mass/Vol] 32.4 g/dL Normal 28.4-34.8 [facility] Comment on above: Performed By: #### L IPR #### [address] [address] Handkerchief Folder: Pa Sharp MD MCV (RBC) [Entitic vol] 89.4 fL Normal 82.6-102.9 [facility] Comment on above: Performed By: #### L IPR #### [address] [address] Handkerchief Folder: Pa Sharp MD NRBC Automated 0.0 per 100 WBC Normal 0.0 [facility] Comment on above: Performed By: #### L IPR #### [address] [address] Handkerchief Folder: Pa Sharp MD Platelet mean volume (Bld) [Entitic vol] 11.4 fL Normal 8.1-13.5 [facility] Comment on above: Performed By: #### L IPR #### [address] [address] Handkerchief Folder: Pa Sharp MD Platelets (Bld) [#/Vol] 219 10*3/uL Normal 138-453 [facility] Comment on above: Performed By: #### L IPR #### [facility] [address] [place] [address] Handkerchief Folder: Pa Sharp MD RBC (Bld) [#/Vol] 3.79 10*6/uL Low 4.21-5.77 [facility] Comment on above: Performed By: #### L IPR #### [facility] [address] [place] [address] Handkerchief Folder: Pa Sharp MD WBC (Bld) [#/Vol] 7.9 10*3/uL Normal 3.5-11.3 [facility] Comment on above: Performed By: #### L IPR #### [facility] [address] [place] [address] Handkerchief Folder: Pa Sharp MD CTA HEAD W CONTRASTon 2018 CTA HEAD W CONTRAST EXAMINATION: CTA OF THE HEAD WITH CONTRAST; CTA OF THE NECK 05/21/2019 9:31 am: TECHNIQUE: CTA of the head/brain was performed with the administration of intravenous contrast. Multiplanar reformatted images are provided for review. MIP images are provided for review. Dose modulation, iterative reconstruction, and/or weight based adjustment of the mA/kV was utilized to reduce the radiation dose to as low as reasonably achievable.; CTA of the neck was performed with the administration of intravenous contrast. Multiplanar reformatted images are provided for review. MIP images are provided for review. Stenosis of the internal carotid arteries measured using NASCET criteria. Dose modulation, iterative reconstruction, and/or weight based adjustment of the mA/kV was utilized to reduce the radiation dose to as low as reasonably achievable. COMPARISON: None. 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 No significant stenosis is seen of the innominate artery or subclavian arteries. CAROTID ARTERIES: The common carotid arteries are normal in appearance without evidence of a flow limiting stenosis. The internal carotid arteries are normal in appearance without evidence of a flow limiting stenosis by NASCET criteria. No dissection or arterial injury is seen. VERTEBRAL ARTERIES: There is a dominant right vertebral artery. The vertebral arteries are otherwise patent without significant stenosis. SOFT TISSUES: The lung apices are clear. No cervical or superior mediastinal lymphadenopathy. The visualized portion of the larynx and pharynx appear unremarkable. The parotid, submandibular and thyroid glands demonstrate no acute abnormality. BONES: The visualized osseous structures appear unremarkable. CTA HEAD: ANTERIOR CIRCULATION: The internal carotid arteries are normal in course and caliber without focal stenosis. There is moderate stenosis involving the A1 portion of the right anterior cerebral artery. There are a few scattered foci of stenosis throughout the anterior cerebral artery branches bilaterally without definite occlusion. There is a degree of stenosis involving an M2 branch just distal to the trifurcation. There are a few scattered foci of stenosis within the mid and distal right middle cerebral artery branches distally. There is minimal stenosis involving the M1 portion of the left middle cerebral artery. There are a few scattered foci of stenosis within the mid and distal left middle cerebral artery branches. There is no definite middle cerebral artery occlusion bilaterally. POSTERIOR CIRCULATION: There is a dominant right vertebral artery that becomes the basilar artery. The left vertebral artery appears to become the left posterior inferior cerebellar artery. Basilar artery is patent. There is mild stenosis within the distal P1 portions of the posterior cerebral arteries bilaterally. BRAIN: No mass effect or midline shift. No abnormal extra-axial fluid collection. The sun-white differentiation appears grossly maintained. 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 Scattered foci of stenosis throughout the anterior cerebral artery branches bilaterally. Moderate stenosis involving a right M2 branch just distal to the trifurcation. There are few scattered foci of stenosis within the mid and distal right and left middle cerebral arteries without evidence for occlusion. Mild stenosis within the distal P1 portions of the posterior cerebral arteries bilaterally. Interpreted by: González Lehman MD Signed by: González Lehman MD 05/21/19 Final result Normal [facility] CTA NECK W CONTRASTon 2018 CTA NECK W CONTRAST EXAMINATION: CTA OF THE HEAD WITH CONTRAST; CTA OF THE NECK 05/21/2019 9:31 am: TECHNIQUE: CTA of the head/brain was performed with the administration of intravenous contrast. Multiplanar reformatted images are provided for review. MIP images are provided for review. Dose modulation, iterative reconstruction, and/or weight based adjustment of the mA/kV was utilized to reduce the radiation dose to as low as reasonably achievable.; CTA of the neck was performed with the administration of intravenous contrast. Multiplanar reformatted images are provided for review. MIP images are provided for review. Stenosis of the internal carotid arteries measured using NASCET criteria. Dose modulation, iterative reconstruction, and/or weight based adjustment of the mA/kV was utilized to reduce the radiation dose to as low as reasonably achievable. COMPARISON: None. 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 No significant stenosis is seen of the innominate artery or subclavian arteries. CAROTID ARTERIES: The common carotid arteries are normal in appearance without evidence of a flow limiting stenosis. The internal carotid arteries are normal in appearance without evidence of a flow limiting stenosis by NASCET criteria. No dissection or arterial injury is seen. VERTEBRAL ARTERIES: There is a dominant right vertebral artery. The vertebral arteries are otherwise patent without significant stenosis. SOFT TISSUES: The lung apices are clear. No cervical or superior mediastinal lymphadenopathy. The visualized portion of the larynx and pharynx appear unremarkable. The parotid, submandibular and thyroid glands demonstrate no acute abnormality. BONES: The visualized osseous structures appear unremarkable. CTA HEAD: ANTERIOR CIRCULATION: The internal carotid arteries are normal in course and caliber without focal stenosis. There is moderate stenosis involving the A1 portion of the right anterior cerebral artery. There are a few scattered foci of stenosis throughout the anterior cerebral artery branches bilaterally without definite occlusion. There is a degree of stenosis involving an M2 branch just distal to the trifurcation. There are a few scattered foci of stenosis within the mid and distal right middle cerebral artery branches distally. There is minimal stenosis involving the M1 portion of the left middle cerebral artery. There are a few scattered foci of stenosis within the mid and distal left middle cerebral artery branches. There is no definite middle cerebral artery occlusion bilaterally. POSTERIOR CIRCULATION: There is a dominant right vertebral artery that becomes the basilar artery. The left vertebral artery appears to become the left posterior inferior cerebellar artery. Basilar artery is patent. There is mild stenosis within the distal P1 portions of the posterior cerebral arteries bilaterally. BRAIN: No mass effect or midline shift. No abnormal extra-axial fluid collection. The sun-white differentiation appears grossly maintained. 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 Scattered foci of stenosis throughout the anterior cerebral artery branches bilaterally. Moderate stenosis involving a right M2 branch just distal to the trifurcation. There are few scattered foci of stenosis within the mid and distal right and left middle cerebral arteries without evidence for occlusion. Mild stenosis within the distal P1 portions of the posterior cerebral arteries bilaterally. Interpreted by: González Lehman MD Signed by: González Lehman MD 05/21/19 Final result Normal [facility] Comp Metabolic Pr/rfx MGon 0 05-21-2019 (cont.) Normal [facility] Comment on above: Result Comment: Aver age GFR for 70 or more years old: 75 mL/min/1.73sq m Chronic Kidney Disease: <60 mL/min/1.73sq m Kidney failure: <15 mL/min/1.73sq m eGFR calculated using average adult body mass. Additional eGFR calculator available at: http://www.[employer]/multiple_crcl_2012.htm Performed By: #### L IPR #### [facility] [employer] [address] [place] [address] Handkerchief Folder: Pa Sharp MD Albumin [Mass/Vol] 3.8 g/dL Normal 3.5-5.2 [facility] Comment on above: Performed By: #### L IPR #### [facility] [employer] [address] [place] [address] Handkerchief Folder: Pa Sharp MD Albumin/Globulin [Mass ratio] 1.5 {ratio} Normal 1.0-2.5 [facility] Comment on above: Performed By: #### L IPR #### [facility] [employer] [address] [place] [address] Handkerchief Folder: Pa Sharp MD Alkaline Phos 77 U/L Normal 40-129 [facility] Comment on above: Performed By: #### L IPR #### [facility] [employer] [address] [place] [address] Handkerchief Folder: Pa Sharp MD ALT [Catalytic activity/Vol] 8 U/L Normal 5-41 [facility] Comment on above: Performed By: #### L IPR #### [address] [address] Handkerchief Folder: Pa Sharp MD Anion gap [Moles/Vol] 13 mmol/L Normal 9-17 [facility] Comment on above: Performed By: #### L IPR #### [address] [address] Handkerchief Folder: Pa Sharp MD AST [Catalytic activity/Vol] 16 U/L Normal <40 [facility] Comment on above: Performed By: #### L IPR #### [address] [address] Handkerchief Folder: Pa Sharp MD Bilirubin Ql (U) 1.60 mg/dL High 0.3-1.2 [facility] Comment on above: Performed By: #### L IPR #### [address] [address] Handkerchief Folder: Pa Sharp MD Calcium [Mass/Vol] 8.6 mg/dL Normal 8.6-10.4 [facility] Comment on above: Performed By: #### L IPR #### [address] [address] Handkerchief Folder: Pa Sharp MD Chloride [Moles/Vol] 105 mmol/L Normal 98-107 [facility] Comment on above: Performed By: #### L IPR #### [address] [address] Handkerchief Folder: Pa Sharp MD CO2 [Moles/Vol] 23 mmol/L Normal 20-31 [facility] Comment on above: Performed By: #### L IPR #### [address] [place] [address] Handkerchief Folder: Pa Sharp MD Creatinine [Mass/Vol] 1.21 mg/dL High 0.70-1.20 [facility] Comment on above: Performed By: #### L IPR #### [address] [address] Handkerchief Folder: Pa Sharp MD GFR, Amer >60 Normal >60 [facility] Comment on above: Performed By: #### L IPR #### [address] [address] Handkerchief Folder: Pa Sharp MD GFR,non Amer 57 mL/min Low >60 [facility] Comment on above: Performed By: #### L IPR #### [address] [address] Handkerchief Folder: Pa Sharp MD Glucose [Mass/Vol] 96 mg/dL Normal 70-99 [facility] Comment on above: Performed By: #### L IPR #### [address] [address] Handkerchief Folder: Pa Sharp MD Potassium [Moles/Vol] 3.7 mmol/L Normal 3.7-5.3 [facility] Comment on above: Performed By: #### L IPR #### [address] [address] Handkerchief Folder: Pa Sharp MD Protein [Mass/Vol] 6.4 g/dL Normal 6.4-8.3 [facility] Comment on above: Performed By: #### L IPR #### [facility] [employer] [address] [place] [address] Handkerchief Folder: Pa Sharp MD Sodium [Moles/Vol] 141 mmol/L Normal 135-144 [facility] Comment on above: Performed By: #### L IPR #### [facility] [address] [place] [address] Handkerchief Folder: Pa Sharp MD Urea nitrogen [Mass/Vol] 17 mg/dL Normal 8- [facility] Comment on above: Performed By: #### L IPR #### [facility] [employer] [address] [place] [address] Handkerchief Folder: Pa Sharp MD BUN/CRE Ratio NOT REPORTED Normal - [facility] Comment on above: Performed By: #### L IPR #### [address] [address] Handkerchief Folder: Pa Sharp MD Staging: NOT REPORTED Normal [facility] Comment on above: Performed By: #### L IPR #### [address] [address] Handkerchief Folder: Pa Sharp MD Lipid Profileon 05-21-2019 Cholesterol [Mass/Vol] 150 mg/dL Normal <200 [facility] Comment on above: Result Comment: Cholesterol Guidelines: <200 Desirable 200-240 Borderline >240 Undesirable Performed By: #### L IPR #### [address] [address] Handkerchief Folder: Pa Sharp MD Cholesterol in HDL [Mass/Vol] 43 mg/dL Normal >40 [facility] Comment on above: Result Comment: HDL Guidelines: <40 Undesirable 40-59 Borderline >59 Desirable Performed By: #### L IPR #### [address] [address] Handkerchief Folder: Pa Sharp MD Cholesterol in LDL [Mass/Vol] 89 mg/dL Normal 0-130 [facility] Comment on above: Result Comment: LDL Guidelines: <100 Desirable 100-129 Near to/above Desirable 130-159 Borderline >159 Undesirable Direct (measured) LDL and calculated LDL are not interchangeable tests. Performed By: #### L IPR #### [facility] [address] [place] [address] Handkerchief Folder: Pa Sharp MD Cholesterol.total/ Cholesterol in HDL [Mass ratio] 3.5 {ratio} Normal <5 [facility] Comment on above: Performed By: #### L IPR #### [facility] [place] [address] Handkerchief Folder: Pa Sharp MD Triglyceride [Mass/Vol] 91 mg/dL Normal <150 [facility] Comment on above: Result Comment: Triglyceride Guidelines: <150 Desirable 150-199 Borderline 200-499 High >499 Very high Based on AHA Guidelines for fasting triglyceride, August 2012. Performed By: #### L IPR #### [facility] [address] [place] [address] Handkerchief Folder: Pa Sharp MD Cholesterol in VLDL [Mass/Vol] NOT REPORTED Normal 1-30 [facility] Comment on above: Performed By: #### L IPR #### [facility] [address] [place] [address] Handkerchief Folder: Pa Sharp MD MRI BRAIN WO CONTRASTon 04-27 MRI BRAIN WO CONTRAST EXAMINATION: MRI OF THE BRAIN WITHOUT CONTRAST 05/21/2019 9:01 am TECHNIQUE: Multiplanar multisequence MRI of the brain was performed without the administration of intravenous contrast. COMPARISON: CT brain performed 05/20/2019. HISTORY: ORDERING SYSTEM PROVIDED HISTORY: FOCAL NEURO DEFICIT, NEW, FIXED OR WORSENING, >24 HOURS FINDINGS: INTRACRANIAL STRUCTURES/VENTRICLES: The sellar and suprasellar structures, optic chiasm, corpus callosum, pineal gland, tectum, and midline brainstem structures are unremarkable. The craniocervical junction is unremarkable. There is no acute intracranial hemorrhage, mass effect, or midline shift. There is satisfactory overall sun-white matter differentiation. There is extensive chronic microvascular disease. There may be remote right frontal lobe infarct. The ventricular structures are symmetric and unremarkable. The infratentorial structures including the cerebellopontine angles and internal auditory canals are unremarkable. There is restricted diffusion within the right thalamus with associated FLAIR signal abnormality consistent with acute/subacute ischemia. There is no abnormal blooming artifact on susceptibility weighted imaging. ORBITS: The visualized portion of the orbits demonstrate no acute abnormality. SINUSES: The visualized paranasal sinuses and mastoid air cells are well aerated. BONES/SOFT TISSUES: The bone marrow signal intensity appears normal. The soft tissues demonstrate no acute abnormality. IMPRESSION: Restricted diffusion in the right thalamus with associated FLAIR signal abnormality consistent with acute/subacute ischemia. 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 Interpreted by: González Lehman MD Signed by: González Lehman MD 05/21/19 Final result Normal [facility] APTTon 05-20-2019 aPTT Coag (Bld) [Time] 26.6 s Normal 23.2-34.[address] [facility] Comment on above: Performed By: #### C ABHINAV CARVAJAL CP #### [facility] [address] [place] [address] [place] [address] Handkerchief Folder: Deshawn Triplett MD Basic Metab w/rfx MGon 05-20 (cont.) Normal [facility] Comment on above: Result Comment: Aver age GFR for 70 or more years old: 75 mL/min/1.73sq m Chronic Kidney Disease: <60 mL/min/1.73sq m Kidney failure: <15 mL/min/1.73sq m eGFR calculated using average adult body mass. Additional eGFR calculator available at: http://www.[employer]/multiple_crcl_2012.htm Performed By: #### ABHINAV ELLISON CP #### [facility] [address] [place] [address] Handkerchief Folder: Deshawn Triplett MD Anion gap [Moles/Vol] 10 mmol/L Normal 9-[address] [facility] Comment on above: Performed By: #### ABHINAV ELLISON CP #### [address] [place] [address] Handkerchief Folder: Deshawn Triplett MD BUN/CRE Ratio 17 Normal -20 [facility] Comment on above: Performed By: #### ABHINAV ELLISON CP #### [facility] [address] [place], [place] [id number] Handkerchief Folder: Deshawn Triplett MD Calcium [Mass/Vol] 9.4 mg/dL Normal 8.6-10.[address] [facility] Comment on above: Performed By: #### C BC, TROPI, CP #### [facility] [address] [place], [place] [id number] Handkerchief Folder: Deshawn Triplett MD Chloride [Moles/Vol] 108 mmol/L High 98-[address] [facility] Comment on above: Performed By: #### C BC, TROPI, CP #### [facility] [address] [place], [place] [id number] Handkerchief Folder: Deshawn Triplett MD CO2 [Moles/Vol] 26 mmol/L Normal 20-31 [facility] Comment on above: Performed By: #### C BC, TROPI, CP #### [facility] [address] [place], [place] [id number] Handkerchief Folder: Deshawn Triplett MD Creatinine [Mass/Vol] 1.22 mg/dL High 0.70-1.[address] [facility] Comment on above: Performed By: #### C BC, TROPI, CP #### [facility] [address] [place], [place] [phone] Handkerchief Folder: Deshawn Triplett MD GFR, Amer >60 Normal >60 [facility] Comment on above: Performed By: #### C BC, TROPI, CP #### [facility] [address] [place], [place] [id number] Handkerchief Folder: Deshawn Triplett MD GFR,non Amer 57 mL/min Low >[address] [facility] Comment on above: Performed By: #### C BC, TROPI, CP #### [facility] [address] [place], [place] [phone] Handkerchief Folder: Deshawn Triplett MD Glucose [Mass/Vol] 99 mg/dL Normal 70-[address] [facility] Comment on above: Performed By: #### C ABHINAV CARVAJAL, CP #### [facility] [address] [place], [place] [phone] Handkerchief Folder: eDshawn Triplett MD Potassium [Moles/Vol] 3.8 mmol/L Normal 3.7-5.[address] [facility] Comment on above: Performed By: #### C ABHINAV CARVAJAL, CP #### [facility] [address] [place], [place] [phone] Handkerchief Folder: Deshawn Triplett MD Sodium [Moles/Vol] 144 mmol/L Normal 135-[address] [facility] Comment on above: Performed By: #### C ABHINAV CARVAJAL, CP #### [facility] [address] [place], [facility] Handkerchief Folder: Deshawn Triplett MD Staging: Normal [facility] Comment on above: Result Comment: Stag e 1: Some kidney damage normal GFR Stage 2: Mild kidney damage GFR 60-89 Stage 3: Moderate kidney damage GFR 30-59 Stage 4: Severe kidney damage GFR 15-29 Stage 5: Severe kidney damage GFR <15 ESRD - chronic treatment by dialysis or transplant Performed By: #### ABHINAV ELLISON, CP #### [address] [place], [place] [phone] Handkerchief Folder: Deshawn Triplett MD Urea nitrogen [Mass/Vol] 21 mg/dL Normal 8-[address] [facility] Comment on above: Performed By: #### C ABHINAV CARVAJAL, CP #### [facility] [address] [place] [address] Handkerchief Folder: Deshawn Triplett MD CBC with Diffon 05-20-2019 Abs. Basophil 0.04 k/uL Normal 0.00-0.20 [facility] Comment on above: Performed By: #### C ABHINAV CARVAJAL, CP #### [facility] [address] [place] [address] Handkerchief Folder: Deshawn Triplett MD Abs.Imm.Granulocyt e 0.04 k/uL Normal 0.00-0.[address] [facility] Comment on above: Performed By: #### C ABHINAV CARVAJAL, CP #### [address] [place] [address] Handkerchief Folder: Deshawn Triplett MD Abs.Neutrophil (Seg) 7.06 k/uL Normal 1.50-8.[address] [facility] Comment on above: Performed By: #### C ABHINAV CARVAJAL, CP #### [address] [place] [address] Handkerchief Folder: Deshawn Triplett MD Basophils/100 WBC (Bld) 0 % Normal 0-[address] [facility] Comment on above: Performed By: #### ABHINAV ELLISON, CP #### [address] [place] [address] Handkerchief Folder: Deshawn Triplett MD Eosinophils (Bld) [#/Vol] 0.06 10*3/uL Normal 0.00-0.[address] [facility] Comment on above: Performed By: #### C ABHINAV CARVAJAL, CP #### [address] [place] [address] Handkerchief Folder: Deshawn Triplett MD Eosinophils/100 WBC (Bld) 1 % Normal 1-[address] [facility] Comment on above: Performed By: #### C ABHINAV CARVAJAL, CP #### [address] [place], [facility] Handkerchief Folder: Deshawn Triplett MD Erythrocyte distribution width (RBC) [Ratio] 13.1 % Normal 11.8-14.[address] [facility] Comment on above: Performed By: #### ABHINAV ELLISON, CP #### [address] [place], [place] [address] Handkerchief Folder: Deshawn Triplett MD Hematocrit (Bld) [Volume fraction] 36.7 % Low 40.7-50.[address] [facility] Comment on above: Performed By: #### C ABHINAV CARVAJAL CP #### [facility] [address] [place], [place] [id number] Handkerchief Folder: Deshawn Triplett MD Hemoglobin (Bld) [Mass/Vol] 11.8 g/dL Low 13.0-17.[address] [facility] Comment on above: Performed By: #### C ABHINAV CARVAJAL, CP #### [facility] [address] [place], [place] [id number] Handkerchief Folder: Deshawn Triplett MD Immature granulocytes (Bld) [#/Vol] 0 % Normal [address] [facility] Comment on above: Performed By: #### ABHINAV ELLISON, CP #### [facility] [address] [place], [facility] Handkerchief Folder: Deshawn Triplett MD Lymphocytes (Bld) [#/Vol] 1.94 10*3/uL Normal 1.10-3.[address] [facility] Comment on above: Performed By: #### ABHINAV ELLISON CP #### [facility] [address] [place], [place] [id number] Handkerchief Folder: Deshawn Triplett MD Lymphocytes/100 WBC (Bld) 20 % Low 24-[address] [facility] Comment on above: Performed By: #### C ABHINAV CARVAJAL, CP #### [facility] [address] [place] [address] Handkerchief Folder: Deshawn Triplett MD MCH (RBC) [Entitic mass] 29.0 pg Normal 25.2-33.[address] [facility] Comment on above: Performed By: #### C ABHINAV CARVAJAL, CP #### [facility] [address] [place], [place] [id number] Handkerchief Folder: Deshawn Triplett MD MCHC (RBC) [Mass/Vol] 32.2 g/dL Normal 28.4-34.[address] [facility] Comment on above: Performed By: #### C ABHINAV CARVAJAL CP #### [facility] [address] [place] [address] Handkerchief Folder: Deshawn Triplett MD MCV (RBC) [Entitic vol] 90.2 fL Normal 82.6-102.[address] [facility] Comment on above: Performed By: #### C ABHINAV CARVAJAL, CP #### [facility] [address] [place] [address] Handkerchief Folder: Deshawn Triplett MD Monocytes (Bld) [#/Vol] 0.79 10*3/uL Normal 0.10-1.[address] [facility] Comment on above: Performed By: #### ABHINAV ELLISON, CP #### [facility] [address] [place], [place] [address] Handkerchief Folder: Deshawn Triplett MD Monocytes/100 WBC (Bld) 8 % Normal 3-[address] [facility] Comment on above: Performed By: #### C ABHINAV CARVAJAL CP #### [facility] [address] [place], [facility] Handkerchief Folder: Deshawn Triplett MD Neutrophil (Seg) 71 % High 36-65 [facility] Comment on above: Performed By: #### ABHINAV ELLISON, CP #### [facility] [address] [place], [facility] Handkerchief Folder: Deshawn Triplett MD NRBC Automated 0.0 per 100 WBC Normal 0.[address] [facility] Comment on above: Performed By: #### C ABHINAV CARVAJAL, CP #### [facility] [address] [place], [place] [phone] Handkerchief Folder: Deshawn Triplett MD Platelet mean volume (Bld) [Entitic vol] 11.5 fL Normal 8.1-13.[address] [facility] Comment on above: Performed By: #### C BC, TROPI, CP #### [facility] [address] [place], [place] [address] Handkerchief Folder: Deshawn Triplett MD Platelets (Bld) [#/Vol] 247 10*3/uL Normal 138-[address] [facility] Comment on above: Performed By: #### C BC, TROPI, CP #### [facility] [address] [place], [facility] Handkerchief Folder: Deshawn Triplett MD RBC (Bld) [#/Vol] 4.07 10*6/uL Low 4.21-5.[address] [facility] Comment on above: Performed By: #### C ALENA TROPI, CP #### [address] [place] [address] Handkerchief Folder: Deshawn Triplett MD WBC (Bld) [#/Vol] 9.9 10*3/uL Normal 3.5-11.[address] [facility] Comment on above: Performed By: #### C ALENA TROPI, CP #### [address] [place] [address] Handkerchief Folder: Deshawn Triplett MD Auto Diff Performed NOT REPORTED Normal [facility] Comment on above: Performed By: #### C ALENA TROPI, CP #### [facility] [address] [place], [place] [address] Handkerchief Folder: Deshawn Triplett MD Platelets (Bld) [#/Vol] NOT REPORTED Normal [facility] Comment on above: Performed By: #### C ALENA TROPI, CP #### [facility] [address] [place] [id number] Handkerchief Folder: Deshawn Triplett MD RBC morphology finding Nom (Bld) NOT REPORTED Normal [facility] Comment on above: Performed By: #### C BC TROPI, CP #### [facility] [address] [place] [id number] Handkerchief Folder: Deshawn Triplett MD WBC Morphology NOT REPORTED Normal [facility] Comment on above: Performed By: #### C ABHINAV CARVAJAL CP #### [facility] [address] [place], [place] [phone] Handkerchief Folder: Deshawn Triplett MD CT HEAD WO CONTRASTon 2018 CT HEAD WO CONTRAST EXAMINATION: CT OF THE HEAD WITHOUT CONTRAST 05/20/2019 12:37 pm TECHNIQUE: CT of the head was performed without the administration of intravenous contrast. Dose modulation, iterative reconstruction, and/or weight based adjustment of the mA/kV was utilized to reduce the radiation dose to as low as reasonably achievable. COMPARISON: MRI brain performed 04/14/2019. HISTORY: ORDERING SYSTEM PROVIDED HISTORY: weakness' TECHNOLOGIST PROVIDED HISTORY: FINDINGS: BRAIN/VENTRICLES: There is no acute intracranial hemorrhage, mass effect, or midline shift. There is satisfactory overall sun-white matter differentiation. There is stable chronic microvascular disease with remote right frontal infarct. There are multiple remote lacunar infarcts within the basal ganglia and thalami bilaterally. There is a potential new punctate lacunar infarct in the right basal ganglia and thalamic region that was not definitively seen on prior exam from 1 month ago. The ventricular structures are symmetric and unremarkable. The infratentorial structures are unremarkable. ORBITS: The visualized portion of the orbits demonstrate no acute abnormality. SINUSES: The visualized paranasal sinuses and mastoid air cells demonstrate no acute abnormality. SOFT TISSUES/SKULL: No acute abnormality of the visualized skull or soft tissues. IMPRESSION: Chronic microvascular disease with multiple remote lacunar infarcts in the basal ganglia and thalami bilaterally. There is a potential new lacunar infarct in the right basal ganglia and thalamic region. Critical results were called by Dr. González Lehman to VAISHALI SNOW on 05/20/2019 at 12:52. Interpreted by: González Lehman MD Signed by: González Lehman MD 05/20/[address] result Normal [facility] PTon 05-20-2019 INR Coag (PPP) [Relative time] 1.0 {INR} Normal 0.9-1.[address] [facility] Comment on above: Performed By: #### C ABHINAV CARVAJAL CP #### [facility] [address] [place], [place] [phone] Handkerchief Folder: Deshawn Triplett MD PT Coag (PPP) [Time] 10.6 s Normal 9.7-12.[address] [facility] Comment on above: Performed By: #### C BC, ABHINAV, CP #### [facility] [address] [place], [place] [phone] Handkerchief Folder: Deshawn Triplett MD XR CHEST PORTABLEon 05-20-20 XR CHEST PORTABLE EXAMINATION: ONE XRAY VIEW OF THE CHEST 05/20/2019 2:15 pm COMPARISON: 04/13/2019 radiograph HISTORY: ORDERING SYSTEM PROVIDED HISTORY: cva TECHNOLOGIST PROVIDED HISTORY: cva FINDINGS: The heart, mediastinum and pulmonary vascularity are normal. Lungs are well-expanded and clear. No skeletal abnormalities are present in the chest. IMPRESSION: No significant findings in the chest. Interpreted by: Kalyan Cope IV, MD Signed by: Kalyan Cope IV, MD 05/20/[address] result Normal [facility] Immunofixation,Bloodon 04-17 IFX - Interpret. IMMUNOFIXATION IS NEGATIVE FOR MONOCLONAL IMMUNOGLOBULIN. Normal [facility] Comment on above: Performed By: #### T WINSTON PEREAB #### [address] [address] Handkerchief Folder: Pa Sharp MD Pathologist Review: ELECTRONICALLY SIGNED. EDGAR KING M.D. [facility] Comment on above: Performed By: #### T WINSTON PEREAB #### [address] [place] [id number] [place] [address] Handkerchief Folder: Pa Sharp MD Prot. Electroph, Blon 2018 Pathologist Review: ELECTRONICALLY SIGNED. EDGAR KING M.D. [facility] Comment on above: Performed By: #### L IPR #### [address] [phone] [place] [address] Handkerchief Folder: Pa Sharp MD Prot. Elect-Interp NORMAL ELECTROPHORET IC PATTERN Normal [facility] Comment on above: Result Comment: IMMU NOFIXATION IS NEGATIVE FOR MONOCLONAL IMMUNOGLOBULIN. Performed By: #### L IPR #### [address] [address] Handkerchief Folder: Pa Sharp MD Basic Metab w/rfx MGon 04-16 (cont.) Normal [facility] Comment on above: Result Comment: Aver age GFR for 70 or more years old: 75 mL/min/1.73sq m Chronic Kidney Disease: <60 mL/min/1.73sq m Kidney failure: <15 mL/min/1.73sq m eGFR calculated using average adult body mass. Additional eGFR calculator available at: http://www.[employer]/multiple_crcl_2012.htm Performed By: #### L IPR #### [address] [address] Handkerchief Folder: Pa Sharp MD Anion gap [Moles/Vol] 10 mmol/L Normal 9-17 [facility] Comment on above: Performed By: #### L IPR #### [address] [address] Handkerchief Folder: Pa Sharp MD Calcium [Mass/Vol] 8.5 mg/dL Low 8.6-10.4 [facility] Comment on above: Performed By: #### L IPR #### [facility] [employer] [address] [place] [address] Handkerchief Folder: Pa Sharp MD Chloride [Moles/Vol] 105 mmol/L Normal 98-107 [facility] Comment on above: Performed By: #### L IPR #### [facility] [address] [place] [address] Handkerchief Folder: Pa Sharp MD CO2 [Moles/Vol] 26 mmol/L Normal 20-31 [facility] Comment on above: Performed By: #### L IPR #### [facility] [address] [place] [address] Handkerchief Folder: Pa Sharp MD Creatinine [Mass/Vol] 1.56 mg/dL High 0.70-1.20 [facility] Comment on above: Performed By: #### L IPR #### [facility] [address] [place] [address] Handkerchief Folder: Pa Sharp MD GFR, Amer 52 mL/min Low >60 [facility] Comment on above: Performed By: #### L IPR #### [facility] [address] [place] [address] Handkerchief Folder: Pa Sharp MD GFR,non Amer 43 mL/min Low >60 [facility] Comment on above: Performed By: #### L IPR #### [address] [address] Handkerchief Folder: Pa Sharp MD Glucose [Mass/Vol] 103 mg/dL High 70-99 [facility] Comment on above: Performed By: #### L IPR #### [address] [address] Handkerchief Folder: Pa Sharp MD Potassium [Moles/Vol] 4.2 mmol/L Normal 3.7-5.3 [facility] Comment on above: Performed By: #### L IPR #### [facility] [employer] [address] [place] [address] Handkerchief Folder: Pa Sharp MD Sodium [Moles/Vol] 141 mmol/L Normal 135-144 [facility] Comment on above: Performed By: #### L IPR #### [facility] [employer] [address] [place] [address] Handkerchief Folder: Pa Sharp MD Urea nitrogen [Mass/Vol] 29 mg/dL High 8-23 [facility] Comment on above: Performed By: #### L IPR #### [address] [address] Handkerchief Folder: Pa Sharp MD BUN/CRE Ratio NOT REPORTED Normal 08-15 [facility] Comment on above: Performed By: #### L IPR #### [address] [address] Handkerchief Folder: Pa Sharp MD Staging: NOT REPORTED Normal [facility] Comment on above: Performed By: #### L IPR #### [address] [address] Handkerchief Folder: Pa Sharp MD Hgb/Hcton 04-16-2019 Hematocrit (Bld) [Volume fraction] 32.6 % Low 40.7-50.3 [facility] Comment on above: Performed By: #### L IPR #### [address] [address] Handkerchief Folder: Pa Sharp MD Hemoglobin (Bld) [Mass/Vol] 10.4 g/dL Low 13.0-17.0 [facility] Comment on above: Performed By: #### L IPR #### [address] [address] Handkerchief Folder: Pa Sharp MD Immunofixation,Urineon 04-16 Protein (U) [Mass/Vol] 117 mg/dL Normal [facility] Comment on above: Performed By: #### L IPR #### [address] [address] Handkerchief Folder: Pa Sharp MD Ur. IFX-Interpret FREE MONOCLONAL LIGH T CHAINS ARE PRESENT, IDENTIFIED Normal [facility] Comment on above: Result Comment: Triana da. (0.2 MG/DL) Performed By: #### L IPR #### [address] [address] Handkerchief Folder: Pa Sharp MD Volume .Random Urine Normal [facility] Comment on above: Performed By: #### L IPR #### [address] [address] Handkerchief Folder: Pa Sharp MD Type of Specimen .Random Urine Normal [facility] Comment on above: Performed By: #### L IPR #### [address] [address] Handkerchief Folder: Pa Sharp MD Prot. Electroph, Blon 2018 Albumin [Mass/Vol] 3.8 g/dL Normal 3.2-5.2 [facility] Comment on above: Performed By: #### L IPR #### [address] [address] Handkerchief Folder: Pa Sharp MD Albumin, % 64 % Normal 45-65 [facility] Comment on above: Performed By: #### L IPR #### [address] [address] Handkerchief Folder: Pa Sharp MD Ceapm-4-aqvhmytjf 0.2 g/dL Normal 0.1-0.4 [facility] Comment on above: Performed By: #### L IPR #### [address] [address] Handkerchief Folder: Pa Sharp MD Nuxzu-7-cdbskagdb, % 3 % Normal 3-6 [facility] Comment on above: Performed By: #### L IPR #### [address] [address] Handkerchief Folder: Pa Sharp MD Erfev-7-ccbjvgwmg 0.7 g/dL Normal 0.5-0.9 [facility] Comment on above: Performed By: #### L IPR #### [facility] [address] [place] [address] Handkerchief Folder: Pa Sharp MD Xwrcg-7-hqjwoelgz, % 11 % Normal 6-13 [facility] Comment on above: Performed By: #### L IPR #### [facility] [address] [place] [address] Handkerchief Folder: Pa Sharp MD Beta-globulins 0.7 g/dL Normal 0.5-1.1 [facility] Comment on above: Performed By: #### L IPR #### [facility] [employer] [address] [place] [address] Handkerchief Folder: Pa Sharp MD Beta-globulins,% 11 % Normal 11-19 [facility] Comment on above: Performed By: #### L IPR #### [facility] [employer] [address] [place] [address] Handkerchief Folder: Pa Sharp MD Gamma-globulins 0.7 g/dL Normal 0.5-1.5 [facility] Comment on above: Performed By: #### L IPR #### [facility] [employer] [address] [place] [address] Handkerchief Folder: Pa Sharp MD Gamma-globulins,% 11 % Normal 9-20 [facility] Comment on above: Performed By: #### L IPR #### [facility] [address] [place] [address] Handkerchief Folder: Pa Sharp MD Total Prot. Sum 6.1 g/dL Low 6.3-8.2 [facility] Comment on above: Performed By: #### L IPR #### [facility] [address] [place] [address] Handkerchief Folder: Pa Sharp MD Total Prot. Sum,% 100 % Normal 98-102 [facility] Comment on above: Performed By: #### L IPR #### [address] [address] Handkerchief Folder: Pa Sharp MD Prot. Electroph, Uron 2018 Pathologist Review: ELECTRONICALLY SIGNED. EDGAR KING M.D. Normal [facility] Comment on above: Performed By: #### L IPR #### [address] [address] Handkerchief Folder: Pa Sharp MD Type of Specimen .Random Urine Normal [facility] Comment on above: Performed By: #### L IPR #### [address] [address] Handkerchief Folder: Pa Sharp MD Ur.-Prot.Elect-Int er FREE MONOCLONAL LIGHT CHAINS ARE PRESENT, IDENTIFIED Normal [facility] Comment on above: Result Comment: Triana da. (0.2 MG/DL) ELEVATED PROTEIN CONCENTRATION. MOST SERUM PROTEINS ARE DETECTED IN THIS URINE. USUALLY OBSERVED WITH MARKEDLY INCREASED NON-SELECTIVE GLOMERULAR PERMEABILITY (i.e. SEVERE GLOMERULAR DISEASE), CONTAMINATION OF URINE WITH BLOOD, OR A COMBINATION OF THESE. A DECREASE IN TUBULAR FUNCTION CANNOT BE RULED OUT. SPECIMEN IS BLOODY Performed By: #### L IPR #### [address] [phone] Handkerchief Folder: Pa Sharp MD Basic Metab w/rfx MGon 04-15 (cont.) Normal [facility] Comment on above: Result Comment: Aver age GFR for 70 or more years old: 75 mL/min/1.73sq m Chronic Kidney Disease: <60 mL/min/1.73sq m Kidney failure: <15 mL/min/1.73sq m eGFR calculated using average adult body mass. Additional eGFR calculator available at: http://www.[employer]/multiple_crcl_2012.htm Performed By: #### T ROPI, GLYHGB #### [address] [phone] Handkerchief Folder: Pa Sharp MD Anion gap [Moles/Vol] 11 mmol/L Normal 9-17 [facility] Comment on above: Performed By: #### Viji PEREA GLYHGB #### [facility] [address] [place] [address] Handkerchief Folder: Pa Sharp MD Calcium [Mass/Vol] 8.6 mg/dL Normal 8.6-10.4 [facility] Comment on above: Performed By: #### T BRIT GLYHGB #### [facility] [employer] [address] [place] [address] Handkerchief Folder: Pa Sharp MD Chloride [Moles/Vol] 103 mmol/L Normal 98-107 [facility] Comment on above: Performed By: #### T BRIT GLYHGB #### [facility] [employer] [address] [place] [address] Handkerchief Folder: Pa Sharp MD CO2 [Moles/Vol] 25 mmol/L Normal 20-31 [facility] Comment on above: Performed By: #### Viji PEREA GLYHGB #### [facility] [employer] [address] [place] [address] Handkerchief Folder: Pa Sharp MD Creatinine [Mass/Vol] 1.64 mg/dL High 0.70-1.20 [facility] Comment on above: Performed By: #### T BRIT GLYHGB #### [facility] [address] [place] [address] Handkerchief Folder: Pa Sharp MD GFR, Amer 49 mL/min Low >60 [facility] Comment on above: Performed By: #### T BRIT GLYHGB #### [facility] [address] [place] [address] Handkerchief Folder: Pa Sharp MD GFR,non Amer 41 mL/min Low >60 [facility] Comment on above: Performed By: #### T ROPI, GLYHGB #### [facility] [address] [place] [address] Handkerchief Folder: Pa Sharp MD Glucose [Mass/Vol] 106 mg/dL High 70-99 [facility] Comment on above: Performed By: #### T ROPI, GLYHGB #### [facility] [address] [place] [address] Handkerchief Folder: Pa Sharp MD Potassium [Moles/Vol] 3.7 mmol/L Normal 3.7-5.3 [facility] Comment on above: Performed By: #### T ROPChiki, GLYHGB #### [facility] [address] [place] [address] Handkerchief Folder: Pa Sharp MD Sodium [Moles/Vol] 139 mmol/L Normal 135-144 [facility] Comment on above: Performed By: #### T ROPI, GLYHGB #### [facility] [address] [place] [address] Handkerchief Folder: Pa Sharp MD Urea nitrogen [Mass/Vol] 33 mg/dL High 8-23 [facility] Comment on above: Performed By: #### T ROPI, GLYHGB #### [facility] [address] [place] [address] Handkerchief Folder: Pa Sharp MD BUN/CRE Ratio NOT REPORTED Normal 9-20 [facility] Comment on above: Performed By: #### T ROPI, GLYHGB #### [facility] [address] [place] [address] Handkerchief Folder: Pa Sharp MD Staging: NOT REPORTED Normal [facility] Comment on above: Performed By: #### T ROPI, GLYHGB #### [facility] [address] [place] [address] Handkerchief Folder: Pa Sharp MD CBC with Diffon 05-21-2019 Abs. Basophil 0.04 k/uL Normal 0.00-0.20 [facility] Comment on above: Performed By: #### NELI THORNEHGB #### [facility] [employer] [address] [place] [address] Handkerchief Folder: Pa Sharp MD Abs.Imm.Granulocyt e <0.03 Normal 0.00-0.30 [facility] Comment on above: Performed By: #### Viji PEREA GLYHGB #### [facility] [employer] [address] [place] [address] Handkerchief Folder: Pa Sharp MD Abs.Neutrophil (Seg) 5.08 k/uL Normal 1.50-8.10 [facility] Comment on above: Performed By: #### NELI THORNEHGB #### [facility] [employer] [address] [place] [address] Handkerchief Folder: Pa Sharp MD Basophils/100 WBC (Bld) 1 % Normal 0-2 [facility] Comment on above: Performed By: #### NELI THORNEHGB #### [facility] [employer] [address] [place] [address] Handkerchief Folder: Pa Sharp MD Eosinophils (Bld) [#/Vol] 0.17 10*3/uL Normal 0.00-0.44 [facility] Comment on above: Performed By: #### Viji PEREA GLYHGB #### [facility] [employer] [address] [place] [address] Handkerchief Folder: Pa Sharp MD Eosinophils/100 WBC (Bld) 2 % Normal 1-4 [facility] Comment on above: Performed By: #### Viji PEREA GLYHGB #### [facility] [employer] [address] [place] [address] Handkerchief Folder: Pa Sharp MD Erythrocyte distribution width (RBC) [Ratio] 12.9 % Normal 11.8-14.4 [facility] Comment on above: Performed By: #### NELI THORNEHGB #### [facility] [employer] [address] [place] [address] Handkerchief Folder: Pa Sharp MD Hematocrit (Bld) [Volume fraction] 33.2 % Low 40.7-50.3 [facility] Comment on above: Performed By: #### Viji PEREA GLYHGB #### [facility] [address] [place] [address] Handkerchief Folder: Pa Sharp MD Hemoglobin (Bld) [Mass/Vol] 10.9 g/dL Low 13.0-17.0 [facility] Comment on above: Performed By: #### Viji PEREA GLYHGB #### [facility] [employer] [address] [place] [address] Handkerchief Folder: Pa Sharp MD Immature granulocytes (Bld) [#/Vol] 0 % Normal 0 [facility] Comment on above: Performed By: #### NELI THORNEHGB #### [facility] [employer] [address] [place] [phone] Handkerchief Folder: Pa Sharp MD Lymphocytes (Bld) [#/Vol] 2.29 10*3/uL Normal 1.10-3.70 [facility] Comment on above: Performed By: #### Viji PEREA GLYHGB #### [facility] [employer] [address] [place] [address] Handkerchief Folder: Pa Sharp MD Lymphocytes/100 WBC (Bld) 27 % Normal 24-43 [facility] Comment on above: Performed By: #### Viji PEREA GLYHGB #### [facility] [employer] [address] [place] [address] Handkerchief Folder: Pa Sharp MD MCH (RBC) [Entitic mass] 29.5 pg Normal 25.2-33.5 [facility] Comment on above: Performed By: #### NELI THORNEHGB #### [address] [address] Handkerchief Folder: Pa Sharp MD MCHC (RBC) [Mass/Vol] 32.8 g/dL Normal 28.4-34.8 [facility] Comment on above: Performed By: #### NELI THORNEHGB #### [address] [address] Handkerchief Folder: Pa Sharp MD MCV (RBC) [Entitic vol] 90.0 fL Normal 82.6-102.9 [facility] Comment on above: Performed By: #### NELI THORNEHGB #### [place] [address] Handkerchief Folder: Pa Sharp MD Monocytes (Bld) [#/Vol] 1.03 10*3/uL Normal 0.10-1.20 [facility] Comment on above: Performed By: #### NELI THORNEHGB #### [address] [address] Handkerchief Folder: Pa Sharp MD Monocytes/100 WBC (Bld) 12 % Normal 3-12 [facility] Comment on above: Performed By: #### NELI THORNEHGB #### [facility] [employer] [address] [place] [address] Handkerchief Folder: Pa Sharp MD Neutrophil (Seg) 58 % Normal 36-65 [facility] Comment on above: Performed By: #### NELI THORNEHGB #### [facility] [employer] [address] [place] [address] [phone] Handkerchief Folder: Pa Sharp MD NRBC Automated 0.0 per 100 WBC Normal 0.0 [facility] Comment on above: Performed By: #### T ROPI, GLYHGB #### [facility] [address] [place] [address] Handkerchief Folder: Pa Sharp MD Platelet mean volume (Bld) [Entitic vol] 11.2 fL Normal 8.1-13.5 [facility] Comment on above: Performed By: #### NELI THORNEHGB #### [facility] [address] [place] [address] Handkerchief Folder: Pa Sharp MD Platelets (Bld) [#/Vol] 237 10*3/uL Normal 138-453 [facility] Comment on above: Performed By: #### NELI THORNEHGB #### [facility] [address] [place] [address] Handkerchief Folder: Pa Sharp MD RBC (Bld) [#/Vol] 3.69 10*6/uL Low 4.21-5.77 [facility] Comment on above: Performed By: #### NELI THORNEHGB #### [facility] [employer] [address] [place] [address] Handkerchief Folder: Pa Sharp MD WBC (Bld) [#/Vol] 8.6 10*3/uL Normal 3.5-11.3 [facility] Comment on above: Performed By: #### NELI THORNEHGB #### [facility] [address] [place] [address] Handkerchief Folder: Pa Sharp MD Auto Diff Performed NOT REPORTED Normal [facility] Comment on above: Performed By: #### NELI THORNEHGB #### [facility] [address] [place] [address] Handkerchief Folder: Pa Sharp MD Platelets (Bld) [#/Vol] NOT REPORTED Normal [facility] Comment on above: Performed By: #### T ROPI, GLYHGB #### [employer] [facility] [place] [address] Handkerchief Folder: Pa Sharp MD RBC morphology finding Nom (Bld) NOT REPORTED Normal [facility] Comment on above: Performed By: #### T BRIT GLYHGB #### [facility] [address] [place] [address] Handkerchief Folder: Pa Sharp MD WBC Morphology NOT REPORTED Normal [facility] Comment on above: Performed By: #### T BRIT GLYHGB #### [facility] [employer] [address] [place] [address] Handkerchief Folder: Pa Sharp MD Creatinine,Random Uron 04-15 Creatinine [Mass/Vol] 244.1 mg/dL Normal 39.0-259.0 [facility] Comment on above: Performed By: #### Viji PEREA GLYHGB #### [facility] [employer] [address] [place] [address] Handkerchief Folder: Pa Sharp MD Hgb/Hcton 04-15-2019 Hematocrit (Bld) [Volume fraction] 34.4 % Low 40.7-50.3 [facility] Comment on above: Performed By: #### L IPR #### [address] [address] Handkerchief Folder: Pa Sharp MD Hemoglobin (Bld) [Mass/Vol] 11.4 g/dL Low 13.0-17.0 [facility] Comment on above: Performed By: #### L IPR #### [address] [address] Handkerchief Folder: Pa Shapr MD PSA, Screeningon 04-15-2019 Prostatic Spec. Ag 21.45 ug/L High <4.1 [facility] Comment on above: Result Comment: The Ilsa ECLIA assay is used. Results obtained with different assay methods cannot be used interchangeably. Performed By: #### T BRIT GLYHGB #### [address] [address] Handkerchief Folder: Pa Sharp MD Prot. Electroph, Blon 2018 Protein [Mass/Vol] 6.0 g/dL Low 6.4-8.3 [facility] Comment on above: Performed By: #### L IPR #### [address] [address] Handkerchief Folder: Pa Sharp MD Prot. Electroph, Uron 2018 Protein [Mass/Vol] 117 mg/dL Normal [facility] Comment on above: Performed By: #### L IPR #### [address] [address] Handkerchief Folder: Pa Sharp MD Sodium, Random Uron 04-15-20 19 Na Conc. Urine 47 mmol/L Normal [facility] Comment on above: Result Comment: No n ormal range established. Performed By: #### T BRIT GLYHGB #### [address] [address] Handkerchief Folder: Pa Sharp MD Thyroxine, Freeon 04-15-2019 Thyroxine, Free 1.03 ng/dL Normal 0.93-1.70 [facility] Comment on above: Performed By: #### C DP, BMPX, FEBC, FERI, TSHX, FT4 #### [facility] [employer] [address] [place] [address] Handkerchief Folder: Pa Sharp MD Basic Metab w/rfx MGon 04-14 Creatinine [Mass/Vol] 1.82 mg/dL High 0.70-1.20 [facility] Comment on above: Result Comment: ICTE STERLING SPECIMEN Performed By: #### C DP, BMPX, FEBC, FERI, TSHX, FT4 #### [address] [address] Handkerchief Folder: Pa Sharp MD GFR, Amer 44 mL/min Low >60 [facility] Comment on above: Performed By: #### C DP, BMPX, FEBC, FERI, TSHX, FT4 #### [address] [phone] Handkerchief Folder: Pa Sharp MD GFR,non Amer 36 mL/min Low >60 [facility] Comment on above: Performed By: #### C DP, BMPX, FEBC, FERI, TSHX, FT4 #### [address] [phone] Handkerchief Folder: Pa Sharp MD (cont.) [facility] Comment on above: Result Comment: Aver age GFR for 70 or more years old: 75 mL/min/1.73sq m Chronic Kidney Disease: <60 mL/min/1.73sq m Kidney failure: <15 mL/min/1.73sq m eGFR calculated using average adult body mass. Additional eGFR calculator available at: http://www.[employer].com/multiple_crcl_2012.htm Performed By: #### C DP, BMPX, FEBC, FERI, TSHX, FT4 #### [address] [phone] Handkerchief Folder: Pa Sharp MD Anion gap [Moles/Vol] 16 mmol/L Normal 9-17 [facility] Comment on above: Performed By: #### C DP, BMPX, FEBC, FERI, TSHX, FT4 #### [address] [phone] Handkerchief Folder: Pa Sharp MD Calcium [Mass/Vol] 9.1 mg/dL Normal 8.6-10.4 [facility] Comment on above: Performed By: #### C DP, BMPX, FEBC, FERI, TSHX, FT4 #### [facility] [employer] [address] [place] [address] Handkerchief Folder: Pa Sharp MD Chloride [Moles/Vol] 103 mmol/L Normal 98-107 [facility] Comment on above: Performed By: #### C DP, BMPX, FEBC, FERI, TSHX, FT4 #### [address] [address] Handkerchief Folder: Pa Sharp MD CO2 [Moles/Vol] 24 mmol/L Normal 20-31 [facility] Comment on above: Performed By: #### C DP, BMPX, FEBC, FERI, TSHX, FT4 #### [address] [address] Handkerchief Folder: Pa Sharp MD Glucose [Mass/Vol] 118 mg/dL High 70-99 [facility] Comment on above: Performed By: #### C DP, BMPX, FEBC, FERI, TSHX, FT4 #### [address] [address] Handkerchief Folder: Pa Sharp MD Potassium [Moles/Vol] 4.2 mmol/L Normal 3.7-5.3 [facility] Comment on above: Performed By: #### C DP, BMPX, FEBC, FERI, TSHX, FT4 #### [address] [address] Handkerchief Folder: Pa Sharp MD Sodium [Moles/Vol] 143 mmol/L Normal 135-144 [facility] Comment on above: Performed By: #### C DP, BMPX, FEBC, FERI, TSHX, FT4 #### [facility] [employer] [address] [place] [address] Handkerchief Folder: Pa Sharp MD Urea nitrogen [Mass/Vol] 30 mg/dL High 8-23 [facility] Comment on above: Performed By: #### C DP, BMPX, FEBC, FERI, TSHX, FT4 #### [address] [address] Handkerchief Folder: Pa Sharp MD BUN/CRE Ratio NOT REPORTED Normal 08-15 [facility] Comment on above: Performed By: #### C DP, BMPX, FEBC, FERI, TSHX, FT4 #### [address] [address] Handkerchief Folder: Pa Sharp MD Staging: NOT REPORTED Normal [facility] Comment on above: Performed By: #### C DP, BMPX, FEBC, FERI, TSHX, FT4 #### [address] [address] Handkerchief Folder: Pa Sharp MD CBC with Diffon 04-14-2019 Abs. Basophil 0.04 k/uL Normal 0.00-0.20 [facility] Comment on above: Performed By: #### C DP, BMPX, FEBC, FERI, TSHX, FT4 #### [place] [address] Handkerchief Folder: Pa Sharp MD Abs.Imm.Granulocyt e 0.05 k/uL Normal 0.00-0.30 [facility] Comment on above: Performed By: #### C DP, BMPX, FEBC, FERI, TSHX, FT4 #### [address] [address] Handkerchief Folder: Pa Sharp MD Abs.Neutrophil (Seg) 10.05 k/uL High 1.50-8.10 [facility] Comment on above: Performed By: #### C DP, BMPX, FEBC, FERI, TSHX, FT4 #### [address] [address] Handkerchief Folder: Pa Sharp MD Basophils/100 WBC (Bld) 0 % Normal 0-2 [facility] Comment on above: Performed By: #### C DP, BMPX, FEBC, FERI, TSHX, FT4 #### [address] [address] Handkerchief Folder: Pa Sharp MD Eosinophils (Bld) [#/Vol] 10*3/uL Normal 0.00-0.44 [facility] Comment on above: Performed By: #### C DP, BMPX, FEBC, FERI, TSHX, FT4 #### [place] [address] Handkerchief Folder: Pa Sharp MD Eosinophils/100 WBC (Bld) 0 % Low 1-4 [facility] Comment on above: Performed By: #### C DP, BMPX, FEBC, FERI, TSHX, FT4 #### [place] [address] Handkerchief Folder: Pa Sharp MD Erythrocyte distribution width (RBC) [Ratio] 12.6 % Normal 11.8-14.4 [facility] Comment on above: Performed By: #### C DP, BMPX, FEBC, FERI, TSHX, FT4 #### [place] [phone] Handkerchief Folder: Pa Sharp MD Hematocrit (Bld) [Volume fraction] 39.3 % Low 40.7-50.3 [facility] Comment on above: Performed By: #### C DP, BMPX, FEBC, FERI, TSHX, FT4 #### [place] [address] Handkerchief Folder: Pa Sharp MD Hemoglobin (Bld) [Mass/Vol] 13.0 g/dL Normal 13.0-17.0 [facility] Comment on above: Performed By: #### C DP, BMPX, FEBC, FERI, TSHX, FT4 #### [address] [address] Handkerchief Folder: Pa Sharp MD Immature granulocytes (Bld) [#/Vol] 0 % Normal 0 [facility] Comment on above: Performed By: #### C DP, BMPX, FEBC, FERI, TSHX, FT4 #### [address] [address] Handkerchief Folder: Pa Sharp MD Lymphocytes (Bld) [#/Vol] 1.16 10*3/uL Normal 1.10-3.70 [facility] Comment on above: Performed By: #### C DP, BMPX, FEBC, FERI, TSHX, FT4 #### [address] [address] Handkerchief Folder: Pa Sharp MD Lymphocytes/100 WBC (Bld) 10 % Low 24-43 [facility] Comment on above: Performed By: #### C DP, BMPX, FEBC, FERI, TSHX, FT4 #### [address] [address] Handkerchief Folder: Pa Sharp MD MCH (RBC) [Entitic mass] 29.1 pg Normal 25.2-33.5 [facility] Comment on above: Performed By: #### C DP, BMPX, FEBC, FERI, TSHX, FT4 #### [address] [address] Handkerchief Folder: Pa Sharp MD MCHC (RBC) [Mass/Vol] 33.1 g/dL Normal 28.4-34.8 [facility] Comment on above: Performed By: #### C DP, BMPX, FEBC, FERI, TSHX, FT4 #### [address] [address] Handkerchief Folder: Pa Sharp MD MCV (RBC) [Entitic vol] 88.1 fL Normal 82.6-102.9 [facility] Comment on above: Performed By: #### C DP, BMPX, FEBC, FERI, TSHX, FT4 #### [address] [phone] Handkerchief Folder: Pa Sharp MD Monocytes (Bld) [#/Vol] 0.89 10*3/uL Normal 0.10-1.20 [facility] Comment on above: Performed By: #### C DP, BMPX, FEBC, FERI, TSHX, FT4 #### [place] [address] Handkerchief Folder: Pa Sharp MD Monocytes/100 WBC (Bld) 7 % Normal 3-12 [facility] Comment on above: Performed By: #### C DP, BMPX, FEBC, FERI, TSHX, FT4 #### [place] [address] Handkerchief Folder: Pa Sharp MD Neutrophil (Seg) 83 % High 36-65 [facility] Comment on above: Performed By: #### C DP, BMPX, FEBC, FERI, TSHX, FT4 #### [place] [address] Handkerchief Folder: Pa Sharp MD NRBC Automated 0.0 per 100 WBC Normal 0.0 [facility] Comment on above: Performed By: #### C DP, BMPX, FEBC, FERI, TSHX, FT4 #### [address] [address] Handkerchief Folder: Pa Sharp MD Platelet mean volume (Bld) [Entitic vol] 10.9 fL Normal 8.1-13.5 [facility] Comment on above: Performed By: #### C DP, BMPX, FEBC, FERI, TSHX, FT4 #### [address] [address] Handkerchief Folder: Pa Sharp MD Platelets (Bld) [#/Vol] 291 10*3/uL Normal 138-453 [facility] Comment on above: Performed By: #### C DP, BMPX, FEBC, FERI, TSHX, FT4 #### [address] [address] Handkerchief Folder: Pa Sharp MD RBC (Bld) [#/Vol] 4.46 10*6/uL Normal 4.21-5.77 [facility] Comment on above: Performed By: #### C DP, BMPX, FEBC, FERI, TSHX, FT4 #### [address] [address] Handkerchief Folder: Pa Sharp MD WBC (Bld) [#/Vol] 12.2 10*3/uL High 3.5-11.3 [facility] Comment on above: Performed By: #### C DP, BMPX, FEBC, FERI, TSHX, FT4 #### [address] [address] Handkerchief Folder: Pa Sharp MD Auto Diff Performed NOT REPORTED Normal [facility] Comment on above: Performed By: #### C DP, BMPX, FEBC, FERI, TSHX, FT4 #### [address] [address] Handkerchief Folder: Pa Sharp MD Platelets (Bld) [#/Vol] NOT REPORTED Normal [facility] Comment on above: Performed By: #### C DP, BMPX, FEBC, FERI, TSHX, FT4 #### [address] [address] Handkerchief Folder: Pa Sharp MD RBC morphology finding Nom (Bld) NOT REPORTED Normal [facility] Comment on above: Performed By: #### C DP, BMPX, FEBC, FERI, TSHX, FT4 #### [place] [id number] [place], [place] [phone] Handkerchief Folder: Pa Sharp MD WBC Morphology NOT REPORTED Normal [facility] Comment on above: Performed By: #### C DP, BMPX, FEBC, FERI, TSHX, FT4 #### [address] [phone] Handkerchief Folder: Pa Sharp MD Cult,Urineon 04-14-2019 Cult,Urine Specimen Description .URINE Special Requests .CLEAN CATCH URINE Culture NO GROWTH Report Status FINAL 04/14/[address] [facility] Comment on above: Performed By: #### C BC, TROPI, CP #### [facility] [address] [address] Handkerchief Folder: Deshawn Triplett MD Ferritinon 04-14-2019 Ferritin [Mass/Vol] 173 ug/L Normal 30-400 [facility] Comment on above: Performed By: #### C DP, BMPX, FEBC, FERI, TSHX, FT4 #### [address] [phone] Handkerchief Folder: Pa Sharp MD Hemoglobin A1Con 04-14-2019 HbA1c (Bld) [Mass fraction] 105 mg/dL Normal [facility] Comment on above: Result Comment: The ADA and AACC recommend providing the estimated average glucose result to permit better patient understanding of their HBA1c result. Performed By: #### T NELI PEREAHGB #### [address] [phone] Handkerchief Folder: Pa Sharp MD HbA1c (Bld) [Mass fraction] 5.3 % Normal 4.0-6.0 [facility] Comment on above: Performed By: #### T ROPI, GLYHGB #### [address] [address] Handkerchief Folder: Pa Sharp MD Iron Binding Cap.on 04-14-20 19 % Fe Saturation 20 % Normal 20-55 [facility] Comment on above: Performed By: #### C DP, BMPX, FEBC, FERI, TSHX, FT4 #### [address] [address] Handkerchief Folder: Pa Sharp MD Iron [Mass/Vol] 54 ug/dL Low 59-158 [facility] Comment on above: Performed By: #### C DP, BMPX, FEBC, FERI, TSHX, FT4 #### [address] [address] Handkerchief Folder: Pa Sharp MD Total Fe Binding Cap 275 ug/dL Normal 250-450 [facility] Comment on above: Performed By: #### C DP, BMPX, FEBC, FERI, TSHX, FT4 #### [address] [address] Handkerchief Folder: Pa Sharp MD Unbound Fe Bind Cap 221 ug/dL Normal 112-347 [facility] Comment on above: Performed By: #### C DP, BMPX, FEBC, FERI, TSHX, FT4 #### [address] [address] Handkerchief Folder: Pa Sharp MD Lipid Profileon 04-14-2019 Cholesterol [Mass/Vol] 264 mg/dL High <200 [facility] Comment on above: Result Comment: Cholesterol Guidelines: <200 Desirable 200-240 Borderline >240 Undesirable Performed By: #### L IPR #### [address] [address] Handkerchief Folder: Pa Sharp MD Cholesterol in HDL [Mass/Vol] 40 mg/dL Low >40 [facility] Comment on above: Result Comment: HDL Guidelines: <40 Undesirable 40-59 Borderline >59 Desirable Performed By: #### L IPR #### [facility] [employer] [address] [place] [address] Handkerchief Folder: Pa Sharp MD Cholesterol in LDL [Mass/Vol] 205 mg/dL High 0-130 [facility] Comment on above: Result Comment: LDL Guidelines: <100 Desirable 100-129 Near to/above Desirable 130-159 Borderline >159 Undesirable Direct (measured) LDL and calculated LDL are not interchangeable tests. Performed By: #### L IPR #### [facility] [employer] [address] [place] [address] Handkerchief Folder: Pa Sharp MD Cholesterol.total/ Cholesterol in HDL [Mass ratio] 6.6 {ratio} High <5 [facility] Comment on above: Performed By: #### L IPR #### [facility] [employer] [address] [place] [address] Handkerchief Folder: Pa Sharp MD Triglyceride [Mass/Vol] 97 mg/dL Normal <150 [facility] Comment on above: Result Comment: Triglyceride Guidelines: <150 Desirable 150-199 Borderline 200-499 High >499 Very high Based on AHA Guidelines for fasting triglyceride, August 2012. Performed By: #### L IPR #### [facility] [employer] [address] [place] [address] Handkerchief Folder: Pa Sharp MD Cholesterol in VLDL [Mass/Vol] NOT REPORTED Normal 12-25 [facility] Comment on above: Performed By: #### L IPR #### [facility] [employer] [address] [place] [address] Handkerchief Folder: Pa Sharp MD MRA HEAD WO CONTRASTon 04-14 MRA HEAD WO CONTRAST EXAMINATION: MRA OF THE HEAD WITHOUT CONTRAST 04/14/2019 1:35 pm TECHNIQUE: MRA of the head was performed utilizing [id number] imaging with MIP images. No intravenous contrast was administered. COMPARISON: None HISTORY: ORDERING SYSTEM PROVIDED HISTORY: STROKE FINDINGS: ANTERIOR CIRCULATION: The internal carotid arteries are normal in course and caliber without focal stenosis. There is a small outpouching arising from the cavernous portion of the left internal carotid artery that measures 2 mm and projects laterally. The anterior cerebral and middle cerebral arteries demonstrate no focal stenosis. POSTERIOR CIRCULATION: There are multiple scattered focal areas of stenosis within the posterior cerebral arteries bilaterally. There is a dominant right vertebral artery. The left vertebral artery appears to give rise directly to the left posterior inferior cerebellar artery. 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 Multiple scattered focal areas of stenosis within the posterior cerebral arteries bilaterally. Interpreted by: González Lehman MD Signed by: González Lehman MD 04/14/19 Final result Normal [facility] MRA NECK WO CONTRASTon 04-14 MRA NECK WO CONTRAST EXAMINATION: MRA OF THE NECK WITHOUT CONTRAST 04/14/2019 1:35 pm TECHNIQUE: Multiplanar multisequence MRA of the neck was performed without the administration of intravenous contrast. Stenosis of the internal carotid arteries measured using NASCET criteria. COMPARISON: None. HISTORY: ORDERING SYSTEM PROVIDED HISTORY: STROKE FINDINGS: AORTIC ARCH/GREAT VESSELS: There is a normal branch pattern of the aortic arch. No significant stenosis is seen of the innominate artery or subclavian arteries. CAROTID ARTERIES: The common carotid arteries are normal in appearance without evidence of a flow limiting stenosis. The internal carotid arteries are normal in appearance without evidence of a flow limiting stenosis by NASCET criteria. VERTEBRAL ARTERIES: The vertebral arteries both arise from the subclavian arteries and are normal in caliber without evidence of flow limiting stenosis. There is a dominant right vertebral artery. IMPRESSION: Unremarkable MRA of the neck. Interpreted by: González Lehman MD Signed by: González Lehman MD 04/14/19 Final result Normal [facility] MRI BRAIN WO CONTRASTon 03-27 MRI BRAIN WO CONTRAST EXAMINATION: MRI OF THE BRAIN WITHOUT CONTRAST 04/14/2019 1:35 pm TECHNIQUE: Multiplanar multisequence MRI of the brain was performed without the administration of intravenous contrast. COMPARISON: None. HISTORY: ORDERING SYSTEM PROVIDED HISTORY: FOCAL NEURO DEFICIT, NEW, FIXED OR WORSENING, >24 HOURS FINDINGS: INTRACRANIAL STRUCTURES/VENTRICLES: The sellar and suprasellar structures, optic chiasm, corpus callosum, pineal gland, tectum, and midline brainstem structures are unremarkable. The craniocervical junction is unremarkable. There is no acute intracranial hemorrhage, mass effect, or midline shift. There is satisfactory overall sun-white matter differentiation. There is chronic microvascular disease. 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 The ventricular structures are symmetric and unremarkable. The infratentorial structures including the cerebellopontine angles and internal auditory canals are unremarkable. There is a focus of restricted diffusion in the left thalamus. There is no abnormal blooming artifact on susceptibility weighted imaging. ORBITS: The visualized portion of the orbits demonstrate no acute abnormality. SINUSES: The visualized paranasal sinuses and mastoid air cells are well aerated. BONES/SOFT TISSUES: The bone marrow signal intensity appears normal. The soft tissues demonstrate no acute abnormality. IMPRESSION: Focus of restricted diffusion in the left thalamus consistent with acute/subacute ischemia. Interpreted by: González Lehman MD Signed by: González Lehman MD 04/14/19 Final result Normal [facility] [facility] TSH w/reflex to FT4on 2018 TSH Qn 10.33 m[IU]/L High 0.30-5.00 [facility] Comment on above: Performed By: #### C DP, BMPX, FEBC, FERI, TSHX, FT4 #### [facility] [employer] [address] [place], [place] [phone] Handkerchief Folder: Pa Sharp MD Troponinon 04-14-2019 Troponin I.cardiac [Mass/Vol] 12 ng/L Normal 0-22 [facility] Comment on above: Result Comment: High Sensitivity Troponin values cannot be compared with other Troponin methodologies. Patients with high levels of Biotin oral intake (i.e >5mg/day) may have falsely decreased Troponin levels. Samples collected within 8 hours of biotin intake may require additional information for diagnosis. Performed By: #### T AJMEEL PEREA #### [facility] [address] [place] [id number] Handkerchief Folder: Pa Sharp MD Troponin I.cardiac [Mass/Vol] NOT REPORTED Normal <0.03 [facility] Comment on above: Performed By: #### T BRIT, GLYB #### [facility] [employer] [facility] [place] [id number] Handkerchief Folder: Pa Sharp MD US RENAL COMPLETEon 04-14-20 US RENAL COMPLETE EXAMINATION: RETROPERITONEAL ULTRASOUND OF THE KIDNEYS AND URINARY BLADDER 04/14/2019 COMPARISON: None HISTORY: ORDERING SYSTEM PROVIDED HISTORY: DEMETRICE FINDINGS: Kidneys: The right kidney measures 9.8 cm in length and the left kidney measures 11.1 cm in length. There is diffusely increased cortical echogenicity of both kidneys. Cortical thickness is grossly preserved. There is no hydronephrosis. There are numerous bilateral renal cysts, measuring up to 4.8 cm at the upper right kidney and up to 5.2 cm at the upper left kidney. There are no abnormal masses with vascular flow demonstrated. Bladder: Urinary bladder is nondistended due to Acuna catheterization. IMPRESSION: 1. Bilateral increased cortical echogenicity which can be seen with medical renal disease. 2. No hydronephrosis. 3. Numerous bilateral renal cysts. 4. Nondistended urinary bladder. Interpreted by: Ksenia Hensley DO Signed by: Ksenia Hensley DO 04/14/19 Final result Normal [facility] US SCROTUM AND TESTICLESon 0 04-14-2019 US SCROTUM AND TESTICLES EXAMINATION: ULTRASOUND OF THE SCROTUM/TESTICLES WITH COLOR DOPPLER FLOW EVALUATION 04/14/2019 COMPARISON: None. HISTORY: ORDERING SYSTEM PROVIDED HISTORY: TESTICULAR MASS FINDINGS: Measurements: Right testicle: 3.1 x 2.4 x 2.7 cm Left testicle: 3.9 x 2.1 x 3.0 cm Right: Lopez scale: The right testicle demonstrates normal homogeneous echotexture without focal lesion. No evidence of testicular microlithiasis. Doppler Evaluation: There is normal arterial and venous Doppler flow within the testicle. Scrotal Sac: Large hydrocele Epididymis: 6 x 7 x 4 mm. Left: Lopez scale: The left testicle demonstrates normal homogeneous echotexture without focal lesion. No evidence of testicular microlithiasis. Doppler Evaluation: There is normal arterial and venous Doppler flow within the testicle. Scrotal Sac: Large hydrocele Epididymis: 11 x 7 x 3 mm. IMPRESSION: Large bilateral hydroceles. No discrete testicular or epididymal mass. Arterial and venous spectral Doppler waveform identified to the bilateral testicles. Interpreted by: Eloy Nixon MD Signed by: Eloy Nixon MD 04/14/19 Final result Normal [facility] Basic Metab w/rfx MGon 04-13 (cont.) Normal [facility] Comment on above: Result Comment: Aver age GFR for 70 or more years old: 75 mL/min/1.73sq m Chronic Kidney Disease: <60 mL/min/1.73sq m Kidney failure: <15 mL/min/1.73sq m eGFR calculated using average adult body mass. Additional eGFR calculator available at: http://www.[employer]/multiple_crcl_2011.htm Performed By: #### C DP, PT, BMPX #### [facility] [address] [place] [address] Handkerchief Folder: Deshawn Triplett MD Anion gap [Moles/Vol] 13 mmol/L Normal - [facility] Comment on above: Performed By: #### C DP, PT, BMPX #### [facility] [address] [place] [address] Handkerchief Folder: Deshawn Triplett MD BUN/CRE Ratio 17 Normal - [facility] Comment on above: Performed By: #### C DP, PT, BMPX #### [facility] [address] [place] [address] Handkerchief Folder: Deshawn Triplett MD Calcium [Mass/Vol] 9.2 mg/dL Normal 8.6-10.[address] [facility] Comment on above: Performed By: #### C DP, PT, BMPX #### [facility] [address] [place] [address] Handkerchief Folder: Deshawn Triplett MD Chloride [Moles/Vol] 100 mmol/L Normal 98-[address] [facility] Comment on above: Performed By: #### C DP, PT, BMPX #### [facility] [address] [place], [place] [id number] Handkerchief Folder: Deshawn Triplett MD CO2 [Moles/Vol] 26 mmol/L Normal 20-31 [facility] Comment on above: Performed By: #### C DP, PT, BMPX #### [facility] [address] [place], [place] [id number] Handkerchief Folder: Deshawn Triplett MD Creatinine [Mass/Vol] 2.05 mg/dL High 0.70-1.[address] [facility] Comment on above: Performed By: #### C DP, PT, BMPX #### [facility] [address] [place], [place] [id number] Handkerchief Folder: Deshawn Triplett MD GFR, Amer 38 mL/min Low >60 [facility] Comment on above: Performed By: #### C DP, PT, BMPX #### [facility] [address] [place], [place] [phone] Handkerchief Folder: Deshawn Triplett MD GFR,non Amer 31 mL/min Low >[address] [facility] Comment on above: Performed By: #### C DP, PT, BMPX #### [facility] [address] [place], [place] [phone] Handkerchief Folder: Deshawn Triplett MD Glucose [Mass/Vol] 103 mg/dL High 70-[address] [facility] Comment on above: Performed By: #### C DP, PT, BMPX #### [facility] [address] [place], [place] [phone] Handkerchief Folder: Deshawn Triplett MD Potassium [Moles/Vol] 3.6 mmol/L Low 3.7-5.[address] [facility] Comment on above: Performed By: #### C DP, PT, BMPX #### [facility] [address] [place], [place] [id number] Handkerchief Folder: Deshawn Triplett MD Sodium [Moles/Vol] 139 mmol/L Normal 135-[address] [facility] Comment on above: Performed By: #### C DP, PT, BMPX #### [facility] [address] [place], [facility] Handkerchief Folder: Deshawn Triplett MD Staging: Normal [facility] Comment on above: Result Comment: Stag e 1: Some kidney damage normal GFR Stage 2: Mild kidney damage GFR 60-89 Stage 3: Moderate kidney damage GFR 30-59 Stage 4: Severe kidney damage GFR 15-29 Stage 5: Severe kidney damage GFR <15 ESRD - chronic treatment by dialysis or transplant Performed By: #### C DP, PT, BMPX #### [facility] [address] [place] [id number] Handkerchief Folder: Deshawn Triplett MD Urea nitrogen [Mass/Vol] 35 mg/dL High 8- [facility] Comment on above: Performed By: #### C DP, PT, BMPX #### [facility] [address] [place], [facility] Handkerchief Folder: Deshawn Triplett MD CBC with Diffon 04-13-2019 Abs. Basophil 0.04 k/uL Normal 0.00-0.20 [facility] Comment on above: Performed By: #### C DP, PT, BMPX #### [facility] [address] [place], [facility] Handkerchief Folder: Deshawn Triplett MD Abs.Imm.Granulocyt e 0.04 k/uL Normal 0.00-0.[address] [facility] Comment on above: Performed By: #### C DP, PT, BMPX #### [facility] [address] [place], [facility] Handkerchief Folder: Deshawn Triplett MD Abs.Neutrophil (Seg) 6.37 k/uL Normal 1.50-8.[address] [facility] Comment on above: Performed By: #### C DP, PT, BMPX #### [facility] [address] [place], [facility] Handkerchief Folder: Deshawn Triplett MD Basophils/100 WBC (Bld) 0 % Normal 0-[address] [facility] Comment on above: Performed By: #### C DP, PT, BMPX #### [facility] [address] [place], [place] [phone] Handkerchief Folder: Deshawn Triplett MD Eosinophils (Bld) [#/Vol] 0.03 10*3/uL Normal 0.00-0.[address] [facility] Comment on above: Performed By: #### C DP, PT, BMPX #### [address] [place] [id number] Handkerchief Folder: Deshawn Triplett MD Eosinophils/100 WBC (Bld) 0 % Low 1-[address] [facility] Comment on above: Performed By: #### C DP, PT, BMPX #### [address] [place] [id number] Handkerchief Folder: Deshawn Triplett MD Erythrocyte distribution width (RBC) [Ratio] 12.9 % Normal 11.8-14.[address] [facility] Comment on above: Performed By: #### C DP, PT, BMPX #### [address] [place] [address] Handkerchief Folder: Deshawn Triplett MD Hematocrit (Bld) [Volume fraction] 38.4 % Low 40.7-50.[address] [facility] Comment on above: Performed By: #### C DP, PT, BMPX #### [address] [place], [facility] Handkerchief Folder: Deshawn Triplett MD Hemoglobin (Bld) [Mass/Vol] 12.8 g/dL Low 13.0-17.[address] [facility] Comment on above: Performed By: #### C DP, PT, BMPX #### [address] [place] [address] Handkerchief Folder: Deshawn Triplett MD Immature granulocytes (Bld) [#/Vol] 0 % Normal [address] [facility] Comment on above: Performed By: #### C DP, PT, BMPX #### [facility] [address] [place] [phone] Handkerchief Folder: Deshawn Triplett MD Lymphocytes (Bld) [#/Vol] 2.55 10*3/uL Normal 1.10-3.[address] [facility] Comment on above: Performed By: #### C DP, PT, BMPX #### [facility] [address] [address] Handkerchief Folder: Deshawn Triplett MD Lymphocytes/100 WBC (Bld) 26 % Normal 24-[address] [facility] Comment on above: Performed By: #### C DP, PT, BMPX #### [address] [place] [phone] Handkerchief Folder: Deshawn Triplett MD MCH (RBC) [Entitic mass] 29.4 pg Normal 25.2-33.[address] [facility] Comment on above: Performed By: #### C DP, PT, BMPX #### [address] [place] [id number] Handkerchief Folder: Deshawn Triplett MD MCHC (RBC) [Mass/Vol] 33.3 g/dL Normal 28.4-34.[address] [facility] Comment on above: Performed By: #### C DP, PT, BMPX #### [address] [place] [phone] Handkerchief Folder: Deshawn Triplett MD MCV (RBC) [Entitic vol] 88.1 fL Normal 82.6-102.[address] [facility] Comment on above: Performed By: #### C DP, PT, BMPX #### [address] [place] [address] Handkerchief Folder: Deshawn Triplett MD Monocytes (Bld) [#/Vol] 0.98 10*3/uL Normal 0.10-1.[address] [facility] Comment on above: Performed By: #### C DP, PT, BMPX #### [facility] [address] [place], [place] [address] Handkerchief Folder: Deshawn Triplett MD Monocytes/100 WBC (Bld) 10 % Normal 3-[address] [facility] Comment on above: Performed By: #### C DP, PT, BMPX #### [facility] [address] [place], [facility] Handkerchief Folder: Deshawn Triplett MD Neutrophil (Seg) 64 % Normal 36-65 [facility] Comment on above: Performed By: #### C DP, PT, BMPX #### [facility] [address] [place], [facility] Handkerchief Folder: Deshawn Triplett MD NRBC Automated 0.0 per 100 WBC Normal 0.[address] [facility] Comment on above: Performed By: #### C DP, PT, BMPX #### [facility] [address] [place], [facility] Handkerchief Folder: Deshawn Triplett MD Platelet mean volume (Bld) [Entitic vol] 11.0 fL Normal 8.1-13.[address] [facility] Comment on above: Performed By: #### C DP, PT, BMPX #### [address] [place], [place] [address] Handkerchief Folder: Deshawn Triplett MD Platelets (Bld) [#/Vol] 302 10*3/uL Normal 138-[address] [facility] Comment on above: Performed By: #### C DP, PT, BMPX #### [facility] [address] [place] [address] Handkerchief Folder: Deshawn Triplett MD RBC (Bld) [#/Vol] 4.36 10*6/uL Normal 4.21-5.[address] [facility] Comment on above: Performed By: #### C DP, PT, BMPX #### [facility] [address] [place], [place] [phone] Handkerchief Folder: Deshawn Triplett MD WBC (Bld) [#/Vol] 10.0 10*3/uL Normal 3.5-11.[address] [facility] Comment on above: Performed By: #### C DP, PT, BMPX #### [facility] [address] [place], [place] [phone] Handkerchief Folder: Deshawn Triplett MD Auto Diff Performed NOT REPORTED Normal [facility] Comment on above: Performed By: #### C DP, PT, BMPX #### [facility] [address] [place], [place] [phone] Handkerchief Folder: Deshawn Triplett MD Platelets (Bld) [#/Vol] NOT REPORTED Normal [facility] Comment on above: Performed By: #### C DP, PT, BMPX #### [address] [place], [place] [phone] Handkerchief Folder: Deshawn Triplett MD RBC morphology finding Nom (Bld) NOT REPORTED Normal [facility] Comment on above: Performed By: #### C DP, PT, BMPX #### [facility] [address] [place], [place] [phone] Handkerchief Folder: Deshawn Triplett MD WBC Morphology NOT REPORTED Normal [facility] Comment on above: Performed By: #### C DP, PT, BMPX #### [address] [place], [place] [phone] Handkerchief Folder: Deshawn Triplett MD CT HEAD WO CONTRASTon 2018 CT HEAD WO CONTRAST EXAMINATION: CT OF THE HEAD WITHOUT CONTRAST 04/13/2019 6:18 pm TECHNIQUE: CT of the head was performed without the administration of intravenous contrast. Dose modulation, iterative reconstruction, and/or weight based adjustment of the mA/kV was utilized to reduce the radiation dose to as low as reasonably achievable. COMPARISON: March 22, 2019 HISTORY: ORDERING SYSTEM PROVIDED HISTORY: CVA TECHNOLOGIST PROVIDED HISTORY: FINDINGS: BRAIN/VENTRICLES: There is no acute intracranial hemorrhage, mass effect or midline shift. No abnormal extra-axial fluid collection. The sun-white differentiation is maintained without evidence of an acute infarct. There is prominence of the ventricles and sulci due to global parenchymal volume loss. There are nonspecific areas of hypoattenuation within the periventricular and subcortical white matter, which likely represent chronic microvascular ischemic change. Multiple remote lacunar infarcts are noted in the basal ganglia. Intracranial atherosclerosis. ORBITS: The visualized portion of the orbits demonstrate no acute abnormality. SINUSES: The visualized paranasal sinuses and mastoid air cells demonstrate no acute abnormality. SOFT TISSUES/SKULL: No acute abnormality of the visualized skull or soft tissues. IMPRESSION: Chronic involutional changes. No acute disease. RECOMMENDATIONS: Case discussed with Dr. Snow at 6:35 p.m.. Interpreted by: Dayton Carmona MD Signed by: Dayton Carmona MD 04/13/19 Final result Normal [facility] PTon 04-13-2019 INR Coag (PPP) [Relative time] 1.0 {INR} Normal 0.9-1.[address] [facility] Comment on above: Performed By: #### C DP, PT, BMPX #### [facility] [address] [place] [address] [place] [address] Handkerchief Folder: Deshawn Triplett MD PT Coag (PPP) [Time] 10.7 s Normal 9.7-12.[address] [facility] Comment on above: Performed By: #### C DP, PT, BMPX #### [facility] [address] [place] [phone] Handkerchief Folder: Deshawn Triplett MD UA w/Reflex Cultureon 2018 Acetoacetic Acid,Ur Negative Normal NEG [facility] Comment on above: Performed By: #### C ABHINAV CARVAJAL CP #### [facility] [address] [address] Handkerchief Folder: Deshawn Triplett MD Bilirubin, SemiQt,Ur Negative Normal NEG [facility] Comment on above: Performed By: #### C ABHINAV CARVAJAL CP #### [facility] [address] [place], [place] [phone] Handkerchief Folder: Deshawn Triplett MD Color (U) YELLOW Normal YEL [facility] Comment on above: Performed By: #### C BC, TROPI, CP #### [facility] [address] [place], [place] [phone] Handkerchief Folder: Deshawn Triplett MD Glucose Ql (U) Negative Normal NEG [facility] Comment on above: Performed By: #### C BC, TROPI, CP #### [facility] [address] [place], [place] [phone] Handkerchief Folder: Deshawn Triplett MD Hemoglobin, Ur Negative Normal NEG [facility] Comment on above: Performed By: #### C BC, TROPI, CP #### [facility] [address] [place], [facility] Handkerchief Folder: Deshawn Triplett MD Leukocyte esterase Test strip Ql (U) TRACE Abnormal NEG [facility] Comment on above: Performed By: #### C BC, TROPI, CP #### [address] [place] [address] Handkerchief Folder: Deshawn Triplett MD Nitrite,Ur Negative Normal [facility] Comment on above: Performed By: #### C BC, TROPI, CP #### [facility] [address] [place], [place] [phone] Handkerchief Folder: Deshawn Triplett MD pH (U) 5.5 [pH] Normal 5.0-9.[address] [facility] Comment on above: Performed By: #### C BC, TROPI, CP #### [facility] [address] [place], [place] [phone] Handkerchief Folder: Deshawn Triplett MD Protein Ql (U) Negative Normal NEG [facility] Comment on above: Performed By: #### C BC, TROPI, CP #### [facility] [address] [place], [place] [id number] Handkerchief Folder: Deshawn Triplett MD Specific gravity (U) [Rel density] 1.015 Normal 1.010-1.[address] [facility] Comment on above: Performed By: #### C ABHINAV CARVAJAL, CP #### [facility] [address] [place], [place] [phone] Handkerchief Folder: Deshawn Triplett MD Turbidity CLEAR Normal CLEAR [facility] Comment on above: Performed By: #### C ABHINAV CARVAJAL, CP #### [facility] [address] [place], [place] [phone] Handkerchief Folder: Deshawn Triplett MD Urobilinogen,Ur Normal Normal NORM [facility] Comment on above: Performed By: #### C ABHINAV CARVAJAL, CP #### [facility] [address] [place], [place] [address] Handkerchief Folder: Deshawn Triplett MD Comment NOT REPORTED Normal [facility] Comment on above: Performed By: #### C ABHINAV CARVAJAL, CP #### [facility] [address] [place], [facility] Handkerchief Folder: Deshawn Triplett MD Urinalysis,Microon 9 ----- Normal [facility] Comment on above: Performed By: #### C ABHINAV CARVAJAL, CP #### [facility] [address] [place], [facility] Handkerchief Folder: Deshawn Triplett MD Bacteria LM.HPF (Urine sed) [#/Area] TRACE Abnormal NONE [facility] Comment on above: Performed By: #### C ABHINAV CARVAJAL, CP #### [facility] [address] [place], [place] [phone] Handkerchief Folder: Deshawn Triplett MD Epithelial cells LM.HPF (Urine sed) [#/Area] 2 TO 5 Normal 0-[address] [facility] Comment on above: Performed By: #### C BC, TROPI, CP #### [facility] [address] [place], [place] [address] Handkerchief Folder: Deshawn Triplett MD Mucus Strands TRACE Abnormal [facility] Comment on above: Performed By: #### C BC, TROPI, CP #### [facility] [address] [place] [address] Handkerchief Folder: Deshawn Triplett MD RBC (U) [#/Vol] 0 TO 2 Normal 0-2 [facility] Comment on above: Performed By: #### C ALENA TROPI, CP #### [facility] [address] [place] [address] Handkerchief Folder: Deshawn Triplett MD WBC (U) [#/Vol] 2 TO 5 Normal 0-5 [facility] Comment on above: Performed By: #### C ALENA, TROPI, CP #### [facility] [address] [place] [address] Handkerchief Folder: Deshawn Triplett MD Amorphous sediment LM Ql (Urine sed) NOT REPORTED Normal [facility] Comment on above: Performed By: #### C BC, TROPI, CP #### [address] [place] [address] Handkerchief Folder: Deshawn Triplett MD Casts LM.LPF (Urine sed) [#/Area] NOT REPORTED Normal [facility] Comment on above: Performed By: #### C BC, TROPI, CP #### [facility] [address] [place], [facility] Handkerchief Folder: Deshawn Triplett MD Crystals LM Nom (Urine sed) NOT REPORTED Normal [facility] Comment on above: Performed By: #### C BC, TROPI, CP #### [facility] [address] [place], [facility] Handkerchief Folder: Deshawn Triplett MD Epithelial, Renal NOT REPORTED Normal [address] [facility] Comment on above: Performed By: #### C MARÍA CARVAJALI, CP #### [facility] [address] [place], [place] [phone] Handkerchief Folder: Deshawn Triplett MD Other Observations NOT REPORTED Normal NREQ [facility] Comment on above: Performed By: #### C ALENA TROPI, CP #### [facility] [address] [place], [place] [phone] Handkerchief Folder: Deshawn Triplett MD Trichomonas NOT REPORTED Normal NONE [facility] Comment on above: Performed By: #### C ABHINAV CARVAJAL, CP #### [facility] [address] [place], [place] [phone] Handkerchief Folder: Deshawn Triplett MD Yeast LM Ql (Urine sed) NOT REPORTED Normal NONE [facility] Comment on above: Performed By: #### C ABHINAV CARVAJAL, CP #### [facility] [address] [place], [place] [id number] Handkerchief Folder: Deshawn Triplett MD XR CHEST 1 VIEWon 04-13-2019 XR CHEST 1 VIEW EXAMINATION: ONE XRAY VIEW OF THE CHEST 04/13/2019 6:23 pm COMPARISON: None. HISTORY: ORDERING SYSTEM PROVIDED HISTORY: STROKE TECHNOLOGIST PROVIDED HISTORY: STROKE FINDINGS: The lungs are without acute focal process. There is no effusion or pneumothorax. The cardiomediastinal silhouette is without acute process. The osseous structures are without acute process. IMPRESSION: No acute process. Interpreted by: Dayton Carmona MD Signed by: Dayton Carmona MD 04/13/19 Final result Normal [facility] CBCon 03-22-2019 Erythrocyte distribution width (RBC) [Ratio] 13.2 % Normal 11.8-14.[address] [facility] Comment on above: Performed By: #### C ALENA TROPI, CP #### [facility] [address] [place], [place] [phone] Handkerchief Folder: Deshawn Triplett MD Hematocrit (Bld) [Volume fraction] 36.8 % Low 40.7-50.[address] [facility] Comment on above: Performed By: #### C ABHINAV CARVAJAL CP #### [address] [place], [facility] Handkerchief Folder: Deshawn Triplett MD Hemoglobin (Bld) [Mass/Vol] 12.0 g/dL Low 13.0-17.[address] [facility] Comment on above: Performed By: #### C ABHINAV CARVAJAL, CP #### [address] [place], [facility] Handkerchief Folder: Deshawn Triplett MD MCH (RBC) [Entitic mass] 29.1 pg Normal 25.2-33.[address] [facility] Comment on above: Performed By: #### C ABHINAV CARVAJAL CP #### [address] [place], [place] [address] Handkerchief Folder: Deshawn Triplett MD MCHC (RBC) [Mass/Vol] 32.6 g/dL Normal 28.4-34.[address] [facility] Comment on above: Performed By: #### C ABHINAV CARVAJAL CP #### [address] [place], [facility] Handkerchief Folder: Deshawn Triplett MD MCV (RBC) [Entitic vol] 89.3 fL Normal 82.6-102.[address] [facility] Comment on above: Performed By: #### C ABHINAV CARVAJAL CP #### [address] [place], [facility] Handkerchief Folder: Deshawn Triplett MD NRBC Automated 0.0 per 100 WBC Normal 0.[address] [facility] Comment on above: Performed By: #### C ABHINAV CARVAJAL, CP #### [address] [place], [facility] Handkerchief Folder: Deshawn Triplett MD Platelet mean volume (Bld) [Entitic vol] 11.3 fL Normal 8.1-13.[address] [facility] Comment on above: Performed By: #### C ABHINAV CARVAJAL CP #### [facility] [address] [place], [place] [id number] Handkerchief Folder: Deshawn Triplett MD Platelets (Bld) [#/Vol] 247 10*3/uL Normal 138-[address] [facility] Comment on above: Performed By: #### C ABHINAV CARVAJAL, TAYO #### [facility] [address] [place], [place] [id number] Handkerchief Folder: Deshawn Triplett MD RBC (Bld) [#/Vol] 4.12 10*6/uL Low 4.21-5.[address] [facility] Comment on above: Performed By: #### C ABHINAV CARVAJAL CP #### [facility] [address] [place], [place] [phone] Handkerchief Folder: Deshawn Triplett MD WBC (Bld) [#/Vol] 7.0 10*3/uL Normal 3.5-11.[address] [facility] Comment on above: Performed By: #### C ABHINAV CARVAJAL CP #### [facility] [address] [place], [place] [phone] Handkerchief Folder: Deshawn Triplett MD CT HEAD WO CONTRASTon 2018 CT HEAD WO CONTRAST EXAMINATION: CT OF THE HEAD WITHOUT CONTRAST 03/22/2019 1:14 am TECHNIQUE: CT of the head was performed without the administration of intravenous contrast. Dose modulation, iterative reconstruction, and/or weight based adjustment of the mA/kV was utilized to reduce the radiation dose to as low as reasonably achievable. COMPARISON: None. HISTORY: ORDERING SYSTEM PROVIDED HISTORY: hypertension TECHNOLOGIST PROVIDED HISTORY: FINDINGS: BRAIN/VENTRICLES: There is no acute intracranial hemorrhage, mass effect or midline shift. No abnormal extra-axial fluid collection. The sun-white differentiation is maintained without evidence of an acute infarct. There is no evidence of hydrocephalus. Moderate severe periventricular subcortical white matter hypoattenuation identified suggestive chronic small vessel ischemic disease. Chronic encephalomalacia identified right inferior frontal lobe. Multiple bilateral chronic lacune infarcts identified involving both basal ganglia and both thalami. Intracranial vascular calcifications. ORBITS: The visualized portion of the orbits demonstrate no acute abnormality. SINUSES: Mild ethmoid sinus mucosal thickening. SOFT TISSUES/SKULL: No acute abnormality of the visualized skull or soft tissues. IMPRESSION: No acute intracranial abnormality. Moderate to severe chronic small vessel ischemic disease. Multiple chronic lacune infarct identified both basal ganglia regions and bilateral thalami. Interpreted by: Kd Adhikari MD Signed by: Kd Adhikari MD 03/22/[address] Normal [facility] Comp Metabolic Profon 2018 (cont.) Normal [facility] Comment on above: Result Comment: Aver age GFR for 70 or more years old: 75 mL/min/1.73sq m Chronic Kidney Disease: <60 mL/min/1.73sq m Kidney failure: <15 mL/min/1.73sq m eGFR calculated using average adult body mass. Additional eGFR calculator available at: http://www.ethority/multiple_crcl_2011.htm Performed By: #### C ABHINAV CARVAJAL CP #### [facility] [address] [place] [address] Handkerchief Folder: Deshawn Triplett MD Albumin [Mass/Vol] 3.9 g/dL Normal 3.5-5.[address] [facility] Comment on above: Performed By: #### ABHINAV ELLISON CP #### [facility] [address] [place] [address] Handkerchief Folder: Deshawn Triplett MD Albumin/Globulin [Mass ratio] 1.3 {ratio} Normal 1.0-2.[address] [facility] Comment on above: Performed By: #### ABHINAV ELLISON CP #### [facility] [address] [place] [address] Handkerchief Folder: Deshawn Triplett MD Alkaline Phos 77 U/L Normal 40-129 [facility] Comment on above: Performed By: #### ABHINAV ELLISON CP #### [facility] [address] [place] [id number] Handkerchief Folder: Deshawn Triplett MD ALT [Catalytic activity/Vol] 7 U/L Normal 5-[address] [facility] Comment on above: Performed By: #### C ABHINAV CARVAJAL, CP #### [facility] [address] [place], [place] [phone] Handkerchief Folder: Deshawn Triplett MD Anion gap [Moles/Vol] 10 mmol/L Normal 9-[address] [facility] Comment on above: Performed By: #### C ABHINAV CARVAJAL, CP #### [facility] [address] [place], [place] [phone] Handkerchief Folder: Deshawn Triplett MD AST [Catalytic activity/Vol] 13 U/L Normal <[address] [facility] Comment on above: Performed By: #### C ABHINAV CARVAJAL, CP #### [facility] [address] [place], [place] [phone] Handkerchief Folder: Deshawn Triplett MD Bilirubin Ql (U) 0.68 mg/dL Normal 0.3-1.2 [facility] Comment on above: Performed By: #### C ABHINAV CARVAJAL, CP #### [facility] [address] [place], [place] [id number] Handkerchief Folder: Deshawn Triplett MD BUN/CRE Ratio 13 Normal 9-20 [facility] Comment on above: Performed By: #### C ABHINAV CARVAJAL, CP #### [facility] [address] [place], [place] [id number] Handkerchief Folder: Deshawn Triplett MD Calcium [Mass/Vol] 8.5 mg/dL Low 8.6-10.[address] [facility] Comment on above: Performed By: #### C ALENA TROPI, CP #### [facility] [address] [place], [place] [phone] Handkerchief Folder: Deshawn Triplett MD Chloride [Moles/Vol] 102 mmol/L Normal 98-[address] [facility] Comment on above: Performed By: #### C BC, TROPI, CP #### [facility] [address] [place], [place] [phone] Handkerchief Folder: Deshawn Triplett MD CO2 [Moles/Vol] 27 mmol/L Normal 20-31 [facility] Comment on above: Performed By: #### C BC, TROPI, CP #### [facility] [address] [place], [place] [phone] Handkerchief Folder: Deshawn Triplett MD Creatinine [Mass/Vol] 1.54 mg/dL High 0.70-1.[address] [facility] Comment on above: Performed By: #### C BC, TROPI, CP #### [facility] [address] [place], [place] [phone] Handkerchief Folder: Deshawn Triplett MD GFR, Amer 53 mL/min Low >60 [facility] Comment on above: Performed By: #### C BC, TROPI, CP #### [facility] [address] [place] [address] Handkerchief Folder: Deshawn Triplett MD GFR,non Amer 44 mL/min Low >[address] [facility] Comment on above: Performed By: #### C BC, TROPI, CP #### [facility] [address] [place], [place] [phone] Handkerchief Folder: Deshawn Triplett MD Glucose [Mass/Vol] 102 mg/dL High 70-[address] [facility] Comment on above: Performed By: #### C BC, TROPI, CP #### [facility] [address] [place], [place] [phone] Handkerchief Folder: Deshawn Triplett MD Potassium [Moles/Vol] 3.5 mmol/L Low 3.7-5.[address] [facility] Comment on above: Performed By: #### C BC, TROPI, CP #### [facility] [address] [place], [facility] Handkerchief Folder: Deshawn Triplett MD Protein [Mass/Vol] 6.8 g/dL Normal 6.4-8.[address] [facility] Comment on above: Performed By: #### C BC, TROPI, CP #### [facility] [address] [place], [place] [phone] Handkerchief Folder: Deshawn Triplett MD Sodium [Moles/Vol] 139 mmol/L Normal 135-[address] [facility] Comment on above: Performed By: #### C BC, TROPI, CP #### [facility] [address] [place] [address] Handkerchief Folder: Deshawn Triplett MD Staging: [facility] Comment on above: Result Comment: Stag e 1: Some kidney damage normal GFR Stage 2: Mild kidney damage GFR 60-89 Stage 3: Moderate kidney damage GFR 30-59 Stage 4: Severe kidney damage GFR 15-29 Stage 5: Severe kidney damage GFR <15 ESRD - chronic treatment by dialysis or transplant Performed By: #### C BC, TROPI, CP #### [facility] [address] [place], [facility] Handkerchief Folder: Deshawn Triplett MD Urea nitrogen [Mass/Vol] 20 mg/dL Normal 8-[address] [facility] Comment on above: Performed By: #### C BC, TROPI, CP #### [facility] [address] [place], [facility] Handkerchief Folder: Deshawn Triplett MD Troponinon 03-22-2019 Troponin I.cardiac [Mass/Vol] ng/mL Normal <0.[address] [facility] Comment on above: Result Comment: Trop onin T results cannot be compared to Troponin-I results. Performed By: #### C BC, TROPI, CP #### [facility] [address] [place] [address] Handkerchief Folder: Deshawn Triplett MD Troponin I.cardiac [Mass/Vol] Normal [facility] Comment on above: Result Comment: Refe rence Range: <0.03 Within reference range. 0.03-0.09 Possible myocardial damage. Repeat at appropriate intervals to rule out chronic elevation. >= 0.10 Indicative of myocardial damage. Patients with high levels of Biotin oral intake (i.e >5mg/day) may have falsely decreased Troponin T levels. Samples collected within 8 hours of biotin intake may require additional information for diagnosis. Performed By: #### C ABHINAV CARVAJAL, CP #### [facility] [address] [place] [address] Handkerchief Folder: Deshawn Triplett MD Troponin I.cardiac [Mass/Vol] NOT REPORTED Normal 0-[address] [facility] Comment on above: Performed By: #### C ABHINAV CARVAJAL, CP #### [facility] [address] [place], [place] [phone] Handkerchief Folder: Deshawn Triplett MD Urinalysis, Routineon 2018 Acetoacetic Acid,Ur Negative Normal NEG [facility] Comment on above: Performed By: #### U A #### [facility] [address] [place] [address] Handkerchief Folder: Deshawn Triplett MD Bilirubin, SemiQt,Ur Negative Normal NEG [facility] Comment on above: Performed By: #### U A #### [facility] [address] [place], [place] [phone] Handkerchief Folder: Deshawn Triplett MD Color (U) YELLOW Normal YEL [facility] Comment on above: Performed By: #### U A #### [facility] [address] [place] [address] Handkerchief Folder: Deshawn Triplett MD Glucose Ql (U) Negative Normal NEG [facility] Comment on above: Performed By: #### U A #### [facility] [address] [place] [address] Handkerchief Folder: Deshawn Triplett MD Hemoglobin, Ur Negative Normal NEG [facility] Comment on above: Performed By: #### U A #### [facility] [address] [place] [address] Handkerchief Folder: Deshawn Triplett MD Leukocyte esterase Test strip Ql (U) Negative Normal NEG [facility] Comment on above: Performed By: #### U A #### [facility] [address] [place] [address] Handkerchief Folder: Deshawn Triplett MD Nitrite,Ur Negative Normal NEG [facility] Comment on above: Performed By: #### U A #### [facility] [address] [place] [address] Handkerchief Folder: Deshawn Triplett MD pH (U) 6.5 [pH] Normal 5.0-9.[address] [facility] Comment on above: Performed By: #### U A #### [facility] [address] [place] [address] Handkerchief Folder: Deshawn Triplett MD Protein Ql (U) Negative Normal NEG [facility] Comment on above: Performed By: #### U A #### [address] [place] [address] Handkerchief Folder: Deshawn Triplett MD Specific gravity (U) [Rel density] <1.005 Low 1.010-1.[address] [facility] Comment on above: Performed By: #### U A #### [facility] [address] [place] [address] Handkerchief Folder: Deshawn Triplett MD Turbidity CLEAR Normal CLEAR [facility] Comment on above: Performed By: #### U A #### [facility] [address] [place] [address] Handkerchief Folder: Deshawn Triplett MD Urobilinogen,Ur Normal Normal NORM [facility] Comment on above: Performed By: #### U A #### [facility] [address] [place] [address] Handkerchief Folder: Deshawn Triplett MD Comment NOT REPORTED [facility] Comment on above: Performed By: #### U A #### [facility] [address] [place] [address] Handkerchief Folder: Deshawn Triplett MD Coding Summary.on 03-10-2019 Coding Summary. CODING DATE: 019 FINAL [facility] STATUS: Home (Routine DC) PAYOR: Medicare APC DESCRIPTION 9083 Inj, phenylephrine ketorolac 5497 Level 1 Intraocular Procedures ADMIT DX: REASON FOR VISIT DX: H25.12 Age-related nuclear cataract, left eye FINAL DX: PRINCIPAL: H25.12 Age-related nuclear cataract, left eye SECONDARY: PYMT PROC APC STAT DESCRIPTION DOCTOR NAME DATE 85137 5493 J1 Extracapsular cataract Dakotah Bae DO 03/04/2019 removal with insertion of intraocular lens prosthesis (1 stage procedure), manual or mechanical technique (eg, irrigation and aspiration or phacoemulsification) LT Left side (used to identify procedures performed on the left side of the body) NOTE: The code number assigned matches the documented diagnosis and / or procedure in the patient's chart. However, the narrative phrase printed from the coding software may appear abbreviated, or result in slightly different terminology. Coded By: Shanthi Saldñaa Date Saved: 03/10/2019 01:00 pm Normal [facility] Operative Reporton 04-12-201 9 Operative Report Date of Surgery: 03/04/2019 SURGEON: Dakotah Bae D.O. PREOPERATIVE DIAGNOSIS: Nuclear sclerotic cataract, left eye POSTOPERATIVE DIAGNOSIS: Nuclear sclerotic cataract, left eye OPERATION: Cataract extraction with intraocular lens placement, left eye ANESTHESIA: Topical COMPLICATIONS: None ESTIMATED BLOOD LOSS: Zero PROCEDURE: The patient was brought to the Operating Room in the supine position. After proper identification, the left eye was prepped and draped in a sterile ophthalmic fashion. Two drops of Tetracaine were placed into the eye and a paracentesis was created at the two oclock position. Approximately 0.1 cc of unpreserved Xylocaine was injected into the anterior chamber and this was followed by Amvisc Plus. Using a 2.6 mm keratome blade, a clear corneal incision was created at the twelve oclock limbus. A cystotome was fashioned out of a 25 gauge needle and a curvilinear capsulorrhexis was begun and continued for 360 degrees with Utrata forceps. Balanced Salt Solution on a cannula was injected under the anterior capsule to hydrodissect as well as hydrodelineate the lens. After ensuring mobility with a second handpiece, phacoemulsification was performed in a conquer and divide type fashion. After all nuclear material had been removed from the eye, IA was introduced into the anterior chamber and all residual cortical material was cleaned up. Additional Amvisc Plus was injected into the posterior bag and a lens Model MX60 26.5 diopters was injected into the posterior bag as well. This was dialed into position with a secondhand piece and centered. After ensuring centration, IA was reintroduced into the anterior chamber and all residual Amvisc Plus was removed from the eye. Balanced Salt Solution on a cannula was injected into the stroma of the clear corneal incision as well as the paracentesis to hydrate the wounds. Additional Balanced Salt Solution was injected into the anterior chamber to pressurize the eye to approximately 20-22 mmHg by finger tension. Weck-clarisse sponges were then utilized to check the wounds to be watertight. One drop of Iopidine, one drop of prednisolone acetate and one drop of Ocuflox were placed into the eye and a shield was placed over top. The patient was sent to the Postoperative Area in satisfactory condition to follow up the following day for postoperative care. Dalton Loya Dictated: 03/04/2019 #[id number] Typed: 03/04/2019 #[id number] cc: Dakotah Bae D.O. [facility] Comment on above: Result Comment: Elec tronically Signed By: Dakotah Bae DO\.osmani\Date and Time Signed: 03/07/19 09:51 EDT History and Physicalon 03-04 History and Physical HOSPITAL REGULATIONS: ALL Positive Important Negative Findings Shall Be Recorded DATE ADMITTED: 03/04/2019 HISTORY: The patient is an 83-year-old white male with complaints of vision decline out of his left eye. He states that this is an ongoing problem that has affected his vision for some time now. He states he has been gradually progressing over the last 3-5 years. He states having more difficulty driving at nighttime with glare and driving and seeing road signs at a distance. Secondly, he states having difficulty reading or watching television. PAST OCULAR HISTORY, PAST MEDICAL HISTORY, PSYCHOSOCIAL HISTORY, MEDICATIONS, ALLERGIES TO MEDICATIONS, REVIEW OF SYSTEMS and PHYSICAL EXAMINATION unchanged from previously dictated. ASSESSMENT AND PLAN: Visually significant cataract, left eye. After risks, benefits, alternatives as well as expectations were delivered to the patient, he elected to go forward with cataract removal. He understands those risks to include but are not limited to infection, bleeding, loss of vision or loss of the eye itself. Secondly, he understands that postoperatively he is likely to require spectacle correction for his best visual acuity. Finally, a complete ophthalmic examination was performed and there was not determined to be any other source of vision decline other than that of the cataract. After understanding all risks as well as expectations, he elected to go forward with the procedure as listed above and will be doing so in the near future. Dakotah Bae D.O. [facility] Dictated: 03/03/2019 #[id number] Typed 03/04/2019 #[id number] cc: Dakotah Bae D.O. [facility] Comment on above: Result Comment: Elec tronically Signed By: Dakotah Bae DO\.br\Date and Time Signed: 03/04/19 09:50 EDT Inpatient Patient Summaryon 03-04-2019 Inpatient Patient Summary [facility] Clinical Discharge Instructions PERSON INFORMATION Name: KALYAN HERNANDEZ [facility]ANS Admitting Physician: Dakotah Bae DO Attending Physician: Dakotah Bae DO PCP: NONE, XXXX Discharge Diagnosis: Cataract Comment: PATIENT EDUCATION INFORMATION Instructions: LORRAINE- After Surgery Eye (Custom) Medication Leaflets: Follow up: With: Address: When: Dakotah Bae [facility] [address], [facility] [address] [place] [address] Business (1) Within 1 to 2 days MEDICATION LIST Comment: [facility] Main OR Intraoperative Recor don 03-04-2019 Main OR Intraoperative Record IntraOp Document Type FT Summary Primary Physician: Dakotah Bae DO Finalized Date/Time: 03/04/19 14:45:55 Pt. Name: KALYAN HERNANDEZ Gwen HoffmanB./Sex: 1935 Male Med Rec #: [id number] Physician: Sujeywiliamridge [employer] #: [id number] Pt. Type: A Room/Bed: [place] [address] Admit/Disch: 03/04/19 08:50:47 - Institution: Case Times FT Entry 1 Patient Times In Room 03/04/19 11:36:00 Out Room 03/04/19 11:59:00 Procedure Times Start 03/04/19 11:44:00 Stop 03/04/19 11:57:00 Anesthesia Times Last Modified By: Cande Sommer CST 03/04/19 12:00:18 General Comments: 03/04/19 Chart opened to review and send charges Mike sommer CST Case Attendance FT Entry 1 Entry 2 Entry 3 Case Attendee Dakotah Bae DO RN, Larry Napoles RN, Niesha Mckeon Role Performed Surgeon - Primary Auto Fleet Manager - Primary Auto Fleet Manager - Primary Time In 03/04/19 11:43:00 03/04/19 11:36:00 03/04/19 11:36:00 Time Out 03/04/19 12:00:00 03/04/19 12:00:00 03/04/19 12:00:00 Procedure CATARACT EXTRACTION W/ CATARACT EXTRACTION W/ CATARACT EXTRACTION W/ INTRAOCULAR LENS(Left) INTRAOCULAR LENS(Left) INTRAOCULAR LENS(Left) Comments Last Modified By: Neil RN, Larry Trejo RN, Larry Mackey RN 03/04/19 12:00:14 03/04/19 12:00:14 03/04/19 12:00:14 Entry 4 Case Attendee Amanda Morocho CST Role Performed Scrub - Primary Time In 03/04/19 11:36:00 Time Out 03/04/19 12:00:00 Procedure CATARACT EXTRACTION W/ INTRAOCULAR LENS(Left) Comments Last Modified By: Larry Trejo RN 03/04/19 12:00:14 Perioperative Protocols FT Pre-Care Text: Implements protective measures prior to operative or invasive procedure, confirms identity before the operative or invasive procedure, verifies operative procedure, surgical site, and laterality Entry 1 Procedure(s) CATARACT EXTRACTION W/ Patient Identity Birthday, ID Band INTRAOCULAR LENS(Left) Verified (select at Check, Patient least 2): Participation Consents / H and P HandP, Surgery/Procedure Operative Site Present Verified Consent Marking Verified Surgical Site Yes Laterality Verified Yes Verified Procedure Verified Yes Correct Patient Yes Position Verified Availability Equipment, Implant, Prep Dry No Verified (If Medication Applicable) PreOp Antibiotic No Time Out Dakotah Bae DO, Given Participants Larry Trejo RN, Crosby RN, Bailee Urbano CST, Amanda Hidalgo Time Out Complete 03/04/19 11:44:00 Outcomes Met? Yes Last Modified By: Larry Trejo RN 03/04/19 11:44:14 Post-Care Text: The patient is free from signs and symptoms of injury caused by extraneous objects Allergy Information FT Pre-Care Text: Verifies allergies Entry 1 Allergies Reviewed? Yes Allergies Reviewed Self/Patient With Outcomes Met? Yes Last Modified By: Larry Trejo RN 03/04/19 10:39:40 Post-Care Text: The patient received appropriate medication(s) safely administered during the perioperative period Surgical Procedures FT Entry 1 Procedure Description Procedure CATARACT EXTRACTION W/ Modifiers Left INTRAOCULAR LENS IMPLANTATION Surgeon Description CATARACT EXTRACTION WITH IOL IMPLANTATION LEFT EYE Primary Procedure Yes Primary Surgeon Dakotah Bae DO Start 03/04/19 11:44:00 Stop 03/04/19 11:57:00 Anesthesia Type Local Surgical Service Ophthalmology Wound Class 1 - Clean Last Modified By: Larry Trejo RN 03/04/19 12:00:20 General Case Data FT Pre-Care Text: Classifies surgical wound, implements aseptic technique, initiates traffic control Entry 1 Case Information OR OR 3 FT Case Level Level 2 Wound Class 1 - Clean Specialty Ophthalmology Preop Diagnosis CATARACT LEFT EYE Postop Same As Preop Yes Postop Diagnosis CATARACT LEFT EYE Outcomes Met? Yes Last Modified By: Larry Trejo RN 03/04/19 11:14:57 Post-Care Text: The patient is free from signs and symptoms of infection Skin Assessment (Pre Procedure) FT Pre-Care Text: Implements protective measures to prevent skin/ tissue injury due to thermal or mechanical sources Evaluates for signs and symptoms of physical injury to skin and tissue Entry 1 Skin Integrity Intact, [place], Warm, and Skin Abnormality No Dry Outcomes Met? Yes Last Modified By: Larry Trejo RN 03/04/19 11:17:42 Post-Care Text: The patient is free from signs and symptoms of injury caused by extraneous objects Patient Positioning FT Pre-Care Text: Identifies physical alterations that require additional precautions for procedure-specific positioning, verifies presence of prosthetics or corrective devices, positions the patient, evaluates the patient for signs and symptoms of injury as a result of positioning Entry 1 Procedure CATARACT EXTRACTION W/ Additional folded towel under head INTRAOCULAR LENS(Left) Information Body Position Supine Feet Uncrossed? Yes Left Arm Position Resting at Side Right Arm Position Resting at Side Left Leg Position Extended Right Leg Position Extended Press Points Checked Yes By Larry Trejo RN Outcomes Met? Yes Last Modified By: Larry Trejo RN 03/04/19 11:16:53 Post-Care Text: The patient is free from signs and symptoms of injury related to positioning General Comments: EYE CART WHEELS LOCKED, SIDERAILS UP X 2 AND LOCKED FOR SURGICAL PROCEDURE. Patient Care Devices FT Pre-Care Text: Implements protective measures to prevent skin/ tissue injury due to thermal or mechanical sources Entry 1 Entry 2 Entry 3 Equipment Type MICROSCOPE EYE[F] MONITOR CHARGE SURGERY PHACO UNIT[F] [F] Equipment Number Equipment Setting Outcomes Met? Yes Yes Yes Last Modified By: Larry Trejo RN, RN, Andrea L Krupp RN, Andrea L 03/04/19 11:14:47 03/04/19 11:14:47 03/04/19 11:14:47 Post-Care Text: The patient is free from signs and symptoms of injury caused by extraneous objects Transport To OR FT Pre-Care Text: Transports according to individual needs. Evaluates for signs and symptoms of skin and tissue injury as a result of transfer or transport Entry 1 Via Cart By Larry Trejo RN Safety Precautions Side Rails Up Outcomes Met? Yes Last Modified By: Larry Trejo RN 03/04/19 10:39:47 Post-Care Text: The patient is free from signs and symptoms of injury related to transfer/transport Counts Verification FT Pre-Care Text: Performs required counts Entry 1 Entry 2 Procedure(s) CATARACT EXTRACTION W/ CATARACT EXTRACTION W/ INTRAOCULAR LENS(Left) INTRAOCULAR LENS(Left) Type Initial Final Items Instruments Instruments Status Correct Correct Time 03/04/19 11:40:00 03/04/19 11:57:00 By Amanda Morocho CST, CST, Liane E Outcomes Met? Yes Yes Last Modified By: Larry Trejo RN, RN, Andrea L 03/04/19 11:40:47 03/04/19 11:57:18 Post-Care Text: The patient is free from signs and symptoms of injury caused by extraneous objects Skin Prep FT Pre-Care Text: Performs skin preparations Entry 1 Procedure CATARACT EXTRACTION W/ Prep Area operative site- LEFT EYE INTRAOCULAR LENS(Left) Prep Agents Saline Rinse, Betadine Scrub and Solution Hair Removal Methods Not Indicated By Niesha Napoles RN Outcomes Met? Yes Last Modified By: Larry Trejo RN 03/04/19 11:16:17 Post-Care Text: The patient is free from signs and symptoms of infection Departure From OR FT Pre-Care Text: Transports according to individual needs. Evaluates for signs and symptoms of skin and tissue injury as a result of transfer or transport. Entry 1 Via Cart Safety Precautions Side Rails Up PostOp Destination Pre Surgery/[facility] Transported By Larry Trejo RN Patient Status Stable Skin. Condition Intact, [place], Warm, and Dry Airway Maintenance Oxygen in Use? No Airway Device N/A Outcomes Met? Yes Last Modified By: Larry Trejo RN 03/04/19 11:17:33 Post-Care Text: The patient is free from signs and symptoms of injury related to transfer/transport General Comments: [facility] BACK TO [facility] AFTER SURGICAL PROCEDURE. Dressing/Packing FT Pre-Care Text: Administers care to wound sites Entry 1 Type Dressing Site and Details LEFT EYE- OVAL EYE PAD, PLASTIC EYE SHIELD AND PAPER TAPE. Outcomes Met? Yes Last Modified By: Larry Trejo RN 03/04/19 11:15:39 Post-Care Text: The patient is free from signs and symptoms of infection Medication Administration FT Pre-Care Text: Verifies allergies, administers prescribed medications and solutions, administers prescribed antibiotic therapy and immunizing agents as ordered, evaluates response to medications Administers prescribed medications and solutions Entry 1 Route of Admin Intraocular Expiration Date Yes Verified Outcomes Met? Yes Last Modified By: Larry Trejo RN 03/04/19 11:15:15 Post-Care Text: The patient received appropriate medication(s) safely administered during the perioperative period For [facility] please see scanned medication reconcilliation form for medications used at the field during the procedure. 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 Yes Method Last Modified By: Larry Trejo RN 03/04/19 11:47:43 Post-Care Text: The patient is free from signs and symptoms of injury caused by extraneous objects Case Comments Finalized By: Cande Sommer CST Document Signatures Signed By: Larry Trejo RN 03/04/19 12:00 Cande Sommer CST 03/04/19 14:45 Normal [facility] Main OR PACU II Recordon Main OR PACU II Record PACU Phase II Document Type FT Summary Primary Physician: Dakotah Bae DO Finalized Date/Time: 03/04/19 14:52:39 Pt. Name: KALYAN HERNANDEZ/Sex: 1935 Male Med Rec #: [id number] Physician: Dakotah Bae DO Financial #: [id number] Pt. Type: A Room/Bed: [facility] Admit/Disch: 03/04/19 08:50:47 - Institution: Case Times PACU II FT Pre-Care Text: Identifies barriers to communication and implements measures to provide psychological support and determines knowledge level Develops individualized plan of care, and ensures continuity of care Maintains patient's dignity and privacy, and maintains patient confidentiality Identifies and reports philosophical, cultural, and spiritual beliefs and values Identifies individual values and wishes concerning care administers prescribed antibiotic therapy and immunizing agents as ordered, Evaluates postoperative tissue perfusion Implements thermoregulation measures, and monitors body temperature Evaluates postoperative respiratory status Evaluates postoperative cardiac status Evaluates postoperative neurological status Assesses pain control, collaborated in initiating patient-controlled analgesia and implements alternative methods of pain control Verifies allergies, administers prescribed medications and solutions, evaluates response to medications Entry 1 In PACU II 03/04/19 12:00:00 Discharge from PACU 03/04/19 12:35:00 II Outcomes Met? Yes Last Modified By: Rhiannon Espinal RN 03/04/19 14:52:37 Post-Care Text: The patient demonstrates knowledge of the expected response to the operative or invasive procedure The patient's care is consistent with the individualized perioperative plan of care The patient's right to privacy is maintained The patient's value system, lifestyle, ethnicity, and culture are considered, respected, and incorporated into the perioperative plan of care The patient participates in decisions affecting his or her perioperative plan of care. The patient is free from signs and symptoms of infection The patient has wound/tissue perfusion consistent with or improved from baseline levels established preoperatively The patient is at or returning to normothermia at the conclusion of the immediate postoperative period The patient's respiratory function is consistent with or improved from baseline levels established preoperatively The patient's cardiovascular status is consistent with or improved from baseline levels established preoperatively The patient's neurological status is consistent with or improved from baseline levels established preoperatively The patient demonstrates and/or reports adequate pain control throughout the perioperative period The patient received appropriate medication(s), safely administered during the perioperative period Finalized By: Rhiannon Espinal RN Document Signatures Signed By: Rhiannon Espinal RN 03/04/19 14:52 Normal [facility] Main OR Preoperative Recordo n 03-04-2019 Main OR Preoperative Record PreOp Document Type FT Summary Primary Physician: Dakotah Bae DO Finalized Date/Time: 03/04/19 11:40:32 Pt. Name: KALYAN HERNANDEZ/Sex: 1935 Male Med Rec #: [id number] Physician: Dakotah Bae DO Financial #: [id number] Pt. Type: A Room/Bed: AS15/01 Admit/Disch: 03/04/19 08:50:47 - Institution: Case Times PreOp FT Pre-Care Text: Verifies consent for planned procedure, identifies individual values and wishes concerning care, includes family members in perioperative teaching Entry 1 Patient Times. In Pre Surgery 03/04/19 08:55:00 Out Pre Surgery 03/04/19 11:26:00 Outcomes Met? Yes Last Modified By: Larry Trejo RN 03/04/19 11:40:28 Post-Care Text: The patient participates in decisions affecting his or her perioperative plan of care Finalized By: Larry Trejo RN Document Signatures Signed By: Larry Trejo RN 03/04/19 11:40 Normal [facility] Patient Education - Texton 0 03-04-2019 Patient Education - Text [place], [place] Dakotah Bae D.O. AFTER SURGERY [right eye] [left eye] RESTRICTIONS FOR SIX WEEKS: (1) No rubbing of eye. (2) Try not to sleep on stomach. (3) Wear eye shield at bedtime for 2 WEEKS. (4) Avoid circumstances which may result in trauma to the eye. (5) You may shower and/or bathe. To wash hair allow water to run down back of the head if possible. (6) For YOUR comfort, wear sunglasses in sunlight as needed. METHOD OF APPLYING EYE MEDICATION: (1) Look up. (2) Pull down lower lid. (NO PRESSURE ON EYE) (3) Apply one drop of medication inside the pocket of lower lid. ON THE DAY OF SURGERY: (1) Wear your shield until you get home and then it can be removed. Reapply the shield at bedtime or at any time you are sleeping. (2) PAIN: use Tylenol 325 mg. every 4 hours as needed. The eye may feel as if there is an eyelash in it. This scratchiness is normal. (3) Start your eye drops when you get home. Besivance ? apply to surgical eye, three more times today. Diclofenac ? apply to surgical eye, four more times today. Prednisolone Acetate ? apply to surgical eye, six times today. Normal [facility] Progress Note-Physicianon Progress Note-Physician Patient: KALYAN HERNANDEZ Age: 83 years Sex: Male : 1935 Associated Diagnoses: None Author: Dakotah Bae DO Postoperative Information Date/ Time: 03/04/19 11:57:00 Preoperative Diagnosis: Senile Cataract - OS. Postoperative Diagnosis: same . Procedure: Cataract Extraction with IOL placement - OS. Anesthesia Method: Local. Performed by: Dakotah Bae DO. Specimens Removed: none . Estimated Blood Loss: 0 ml. Complications: None. Normal [facility] Comment on above: Result Comment: Elec tronically Signed By: Dakotah Bae DO\.br\Date and Time Signed: 03/04/19 11:58 EDT History and Physicalon 02-13 History and Physical HOSPITAL REGULATIONS: ALL Positive Important Negative Findings Shall Be Recorded DATE ADMITTED: 02/13/2019 HISTORY: The patient is an 83-year-old white male presenting complaining of a steady decline in visual acuity of his left eye. He states the onset of this has been very gradual over the last five to six years. From this eye, he does not feel comfortable with seeing at distance such as road signs or watching television. He also states having difficulty at nighttime while driving with glare. PAST OCULAR HISTORY, PAST MEDICAL HISTORY, PSYCHOSOCIAL HISTORY, MEDICATIONS, ALLERGIES TO MEDICATIONS, REVIEW OF SYSTEMS and PHYSICAL EXAMINATION unchanged from previously dictated. ASSESSMENT AND PLAN: Visually significant cataract, left eye. After risks, benefits, alternatives as well as expectations were delivered to the patient, he elected to go forward with cataract removal. He understands those risks to include but are not limited to infection, bleeding, loss of vision or loss of the eye itself. Secondly, he understands that postoperatively he is likely to require spectacle correction for his best visual acuity. Finally, a complete ophthalmic examination was performed and there was not determined to be any other source of vision decline other than that of the cataract. After understanding all risks as well as expectations, he elected to go forward with the procedure as listed above and will be doing so in the near future. Dakotah Bae D.O. gls Dictated: 02/12/2019 #[id number] Typed 02/13/2019 #[id number] cc: Dakotah Bae D.O. [facility] Comment on above: Result Comment: Elec tronically Signed By: Dakotah Bae DO\.br\Date and Time Signed: 02/13/19 08:26 EDT Coding Summary.on 02-10-2019 Coding Summary. 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 However, the narrative phrase printed from the coding software may appear abbreviated, or result in slightly different terminology. Coded By: Shanthi Saldaña Date Saved: 02/10/2019 11:34 am [facility] Operative Reporton 02-10-201 9 Operative Report Date of Surgery: 02/04/2019 SURGEON: Dakotah Bae D.O. PREOPERATIVE DIAGNOSIS: Nuclear sclerotic cataract, right eye POSTOPERATIVE DIAGNOSIS: Nuclear sclerotic cataract, right eye OPERATION: Cataract extraction with intraocular lens placement, right eye ANESTHESIA: Topical COMPLICATIONS: None ESTIMATED BLOOD LOSS: Zero PROCEDURE: The patient was brought to the Operating Room in the supine position. After proper identification, the right eye was prepped and draped in a sterile ophthalmic fashion. Two drops of Tetracaine were placed into the eye and a paracentesis was created at the two oclock position. Approximately 0.1 cc of unpreserved Xylocaine was injected into the anterior chamber and this was followed by Amvisc Plus. Using a 2.6 mm keratome blade, a clear corneal incision was created at the twelve oclock limbus. A cystotome was fashioned out of a 25 gauge needle and a curvilinear capsulorrhexis was begun and continued for 360 degrees with Utrata forceps. Balanced Salt Solution on a cannula was injected under the anterior capsule to hydrodissect as well as hydrodelineate the lens. After ensuring mobility with a second handpiece, phacoemulsification was performed in a conquer and divide type fashion. After all nuclear material had been removed from the eye, IA was introduced into the anterior chamber and all residual cortical material was cleaned up. Additional Amvisc Plus was injected into the posterior bag and a lens Model MX60 25.5 diopters was injected into the posterior bag as well. This was dialed into position with a secondhand piece and centered. After ensuring centration, IA was reintroduced into the anterior chamber and all residual Amvisc Plus was removed from the eye. Balanced Salt Solution on a cannula was injected into the stroma of the clear corneal incision as well as the paracentesis to hydrate the wounds. Additional Balanced Salt Solution was injected into the anterior chamber to pressurize the eye to approximately 20-22 mmHg by finger tension. Weck-clarisse sponges were then utilized to check the wounds to be watertight. One drop of Iopidine, one drop of prednisolone acetate and one drop of Ocuflox were placed into the eye and a shield was placed over top. The patient was sent to the Postoperative Area in satisfactory condition to follow up the following day for postoperative care. Dalton Loya Dictated: 02/04/2019 #[id number] Typed: 02/05/2019 #[id number] cc: Dakotah Bae D.O. [facility] Comment on above: Result Comment: Elec tronically Signed By: Dakotah Bae DO\.br\Date and Time Signed: 02/10/19 16:33 EDT Main OR Intraoperative Recor don 02-05-2019 Main OR Intraoperative Record IntraOp Document Type FT Summary Primary Physician: Dakotah Bae DO Finalized Date/Time: 02/05/19 09:43:08 Pt. Name: KALYAN HERNANDEZ/Sex: 1935 Male Med Rec #: [id number] Physician: Dakotah Bae DO Financial #: [id number] Pt. Type: A Room/Bed: Admit/Disch: 02/04/19 08:34:00 - 02/04/19 12:15:00 Institution: Case Times FT Entry 1 Patient Times In Room 02/04/19 11:15:00 Out Room 02/04/19 11:34:00 Procedure Times Start 02/04/19 11:21:00 Stop 02/04/19 11:32:00 Anesthesia Times Last Modified By: Cande Sommer CST 02/04/19 11:32:37 General Comments: 02/05/19 Chart opened to review and send charges Mike Sommer CST Case Attendance FT Entry 1 Entry 2 Entry 3 Case Attendee Dakotah Bae DO RN, Isaac Trejo RN, Larry Cardoza Role Performed Surgeon - Primary Auto Fleet Manager - Primary Auto Fleet Manager - Primary Time In 02/04/19 11:15:00 02/04/19 11:15:00 02/04/19 11:15:00 Time Out 02/04/19 11:34:00 02/04/19 11:34:00 02/04/19 11:34:00 Procedure CATARACT EXTRACTION W/ CATARACT EXTRACTION W/ CATARACT EXTRACTION W/ INTRAOCULAR LENS(Right) INTRAOCULAR LENS(Right) INTRAOCULAR LENS(Right) Comments Last Modified By: Meghna RN, Isaac Coffman RN, Isaac Tai RN 02/04/19 11:32:38 02/04/19 11:32:38 02/04/19 11:32:38 Entry 4 Entry 5 Case Attendee Amanda Morocho CST, CST, Amy E Role Performed Scrub - Primary Scrub - Other Time In 02/04/19 11:15:00 02/04/19 11:15:00 Time Out 02/04/19 11:34:00 02/04/19 11:34:00 Procedure CATARACT EXTRACTION W/ CATARACT EXTRACTION W/ INTRAOCULAR LENS(Right) INTRAOCULAR LENS(Right) Comments Last Modified By: Meghna ADAMS, Isaac Tai RN 02/04/19 11:32:38 02/04/19 11:32:38 Perioperative Protocols FT Pre-Care Text: Implements protective measures prior to operative or invasive procedure, confirms identity before the operative or invasive procedure, verifies operative procedure, surgical site, and laterality Entry 1 Procedure(s) CATARACT EXTRACTION W/ Patient Identity Birthday, ID Band INTRAOCULAR LENS(Right) Verified (select at Check, Patient least 2): Participation Consents / H and P HandP, Surgery/Procedure Operative Site Present Verified Consent Marking Verified Surgical Site Yes Laterality Verified Yes Verified Procedure Verified Yes Correct Patient Yes Position Verified Availability Equipment, Implant, Prep Dry n/a Verified (If Medication Applicable) PreOp Antibiotic No Time Out Dakotah Bae DO, Given Participants Isaac Coffman RN, Neil ADAMS, Larry Cardoza, Bailee BUSINESS SEGMENT MANAGER, Amanda Hidalgo, Juany CASTELLANOS, Niesha Hidalgo Time Out Complete 02/04/19 11:19:00 Outcomes Met? Yes Last Modified By: Isaac Coffman RN 02/04/19 11:21:05 Post-Care Text: The patient is free from signs and symptoms of injury caused by extraneous objects Allergy Information FT Pre-Care Text: Verifies allergies Entry 1 Allergies Reviewed? Yes Allergies Reviewed Self/Patient With Outcomes Met? Yes Last Modified By: Isaac Coffman RN 02/04/19 11:21:14 Post-Care Text: The patient received appropriate medication(s) safely administered during the perioperative period Surgical Procedures FT Entry 1 Procedure Description Procedure CATARACT EXTRACTION W/ Modifiers Right INTRAOCULAR LENS IMPLANTATION Surgeon Description RIGHT CATARACT EXTRACTION W/ INTRAOCULAR LENS IMPLANTATION Primary Procedure Yes Primary Surgeon Dakotah Bae DO Start 02/04/19 11:21:00 Stop 02/04/19 11:32:00 Anesthesia Type Local Surgical Service Ophthalmology Wound Class 1 - Clean Last Modified By: Isaac Coffman RN 02/04/19 11:32:42 General Case Data FT Pre-Care Text: Classifies surgical wound, implements aseptic technique, initiates traffic control Entry 1 Case Information OR OR 3 FT Case Level Level 2 Wound Class 1 - Clean Specialty Ophthalmology Preop Diagnosis CATARACT RIGHT EYE Postop Same As Preop Yes Postop Diagnosis CATARACT RIGHT EYE Outcomes Met? Yes Last Modified By: Isaac Coffman RN 02/04/19 11:21:39 Post-Care Text: The patient is free from signs and symptoms of infection Skin Assessment (Pre Procedure) FT Pre-Care Text: Implements protective measures to prevent skin/ tissue injury due to thermal or mechanical sources Evaluates for signs and symptoms of physical injury to skin and tissue Entry 1 Skin Integrity Unable to Visualize, Outcomes Met? Yes Warm, [place], Dry Last Modified By: Isaac Coffman RN 02/04/19 11:23:03 Post-Care Text: The patient is free from signs and symptoms of injury caused by extraneous objects General Comments: pt partially clothed, unable to assess all of skin/ ktchinyereer rn Patient Positioning FT Pre-Care Text: Identifies physical alterations that require additional precautions for procedure-specific positioning, verifies presence of prosthetics or corrective devices, positions the patient, evaluates the patient for signs and symptoms of injury as a result of positioning Entry 1 Procedure CATARACT EXTRACTION W/ Additional folded towel under INTRAOCULAR LENS(Right) Information head, procedure performed on eye cart, side rails up Body Position Supine Feet Uncrossed? Yes Left Arm Position Resting at Side Right Arm Position Resting at Side Left Leg Position Extended Right Leg Position Extended Positioning Device Pillow Large Under Knees Press Points Checked Yes By Isaac Coffman RN Outcomes Met? Yes Last Modified By: Isaac Coffman RN 02/04/19 07:21:28 Post-Care Text: The patient is free from signs and symptoms of injury related to positioning Patient Care Devices FT Pre-Care Text: Implements protective measures to prevent skin/ tissue injury due to thermal or mechanical sources Entry 1 Entry 2 Entry 3 Equipment Type MICROSCOPE EYE[F] MONITOR CHARGE SURGERY PHACO UNIT[F] [F] Equipment Number Equipment Setting Outcomes Met? Yes Yes Yes Last Modified By: Isaac Coffman RN, RN, Kail M Tinker RN, Kail M 02/04/19 07:21:42 02/04/19 07:21:42 02/04/19 07:21:42 Post-Care Text: The patient is free from signs and symptoms of injury caused by extraneous objects Transport To OR FT Pre-Care Text: Transports according to individual needs. Evaluates for signs and symptoms of skin and tissue injury as a result of transfer or transport Entry 1 Via Cart By Isaac Coffman RN Safety Precautions Side Rails Up Outcomes Met? Yes Last Modified By: Isaac Coffman RN 02/04/19 07:38:00 Post-Care Text: The patient is free from signs and symptoms of injury related to transfer/transport Counts Verification FT Pre-Care Text: Performs required counts Entry 1 Entry 2 Procedure(s) CATARACT EXTRACTION W/ CATARACT EXTRACTION W/ INTRAOCULAR LENS(Right) INTRAOCULAR LENS(Right) Type Initial Final Items Instruments Instruments Status Correct Correct Time By Amanda Morocho CST, CST, Liane E Outcomes Met? Yes Yes Last Modified By: Isaac Coffman RN, RN, Kail M 02/04/19 07:38:15 02/04/19 07:38:15 Post-Care Text: The patient is free from signs and symptoms of injury caused by extraneous objects Skin Prep FT Pre-Care Text: Performs skin preparations Entry 1 Procedure CATARACT EXTRACTION W/ Prep Area operative site, right INTRAOCULAR LENS(Right) eye Prep Agents Saline Rinse, Betadine Scrub and Solution Hair Removal Methods Not Indicated By Larry Trejo RN Outcomes Met? Yes Last Modified By: Isaac Coffman RN 02/04/19 07:38:33 Post-Care Text: The patient is free from signs and symptoms of infection Departure From OR FT Pre-Care Text: Transports according to individual needs. Evaluates for signs and symptoms of skin and tissue injury as a result of transfer or transport. Entry 1 Via Cart Safety Precautions Side Rails Up PostOp Destination Pre Surgery/[facility] Transported By Isaac Coffman RN Patient Status Stable Skin. Condition Unable to Visualize, Warm, [place], Dry Airway Maintenance Oxygen in Use? No Outcomes Met? Yes Last Modified By: Isaac Coffman RN 02/04/19 11:23:25 Post-Care Text: The patient is free from signs and symptoms of injury related to transfer/transport General Comments: [facility] called, transported to [facility] by or transporter/ tony rn Dressing/Packing FT Pre-Care Text: Administers care to wound sites Entry 1 Type Dressing Site and Details right eye with shield and paper tape Outcomes Met? Yes Last Modified By: Isaac Coffman RN 02/04/19 11:23:39 Post-Care Text: The patient is free from signs and symptoms of infection Medication Administration FT Pre-Care Text: Verifies allergies, administers prescribed medications and solutions, administers prescribed antibiotic therapy and immunizing agents as ordered, evaluates response to medications Administers prescribed medications and solutions Entry 1 Expiration Date Yes Outcomes Met? Yes Verified Last Modified By: Isaac Coffman RN 02/04/19 07:39:05 Post-Care Text: The patient received appropriate medication(s) safely administered during the perioperative period For [facility] please see scanned medication reconcilliation form for medications used at the field during the procedure. Implant Log FT Pre-Care Text: Records devices implanted during the operative or invasive procedure Entry 1 Procedure CATARACT EXTRACTION W/ Implant/Explant Implant INTRAOCULAR LENS(Right) Implant Identification FT Description [id number] 12.50MM Serial Number [id number] 25.50 [[id number]] Lot Number [id number] Freezing Room [employer] Catalog ?# [id number] [F] Expiration Date 07/26/20 Manufactured Date 08/22/17 Usage Data FT Implant Site Eye R Quantity 1 Implanted By Dakotah Bae DO Biological Implants Outcomes Met? Yes Last Modified By: Isaac Coffmna RN 02/04/19 11:25:09 Post-Care Text: The patient is free from signs and symptoms of injury caused by extraneous objects Case Comments Finalized By: Cande Sommer CST Document Signatures Signed By: Isaac Coffman RN 02/04/19 11:32 Cande Sommer CST 02/05/19 09:43 Normal [facility] History and Physicalon 02-04 History and Physical HOSPITAL REGULATIONS: ALL Positive Important Negative Findings Shall Be Recorded DATE ADMITTED: 02/04/2019 HISTORY: The patient is an 83-year-old white male presenting complaining of a steady decline in visual acuity of his right eye. It has been a gradual process over the last several years, however more noticeable over the last 12 months. He states having constant trouble with reading and watching television. He also states having constant trouble with road signs at a distance while driving and headlights creating glare at nighttime. PAST OCULAR HISTORY: Denies. PAST MEDICAL HISTORY: Denies. PSYCHOSOCIAL HISTORY: Denies tobacco, alcohol or recreational drug abuse. SYSTEMIC MEDICATIONS: Denies. ALLERGIES: Denies. REVIEW OF SYSTEMS: No pertinent positives. PHYSICAL EXAMINATION: VITAL SIGNS: Blood pressure measured at 137/84 with a respiration rate of 12 and pulse of 67. GENERAL: He is awake, alert and oriented x3, well developed, well nourished. No acute distress. HEART: Regular rate and rhythm. LUNGS: Clear bilaterally. ABDOMEN: Soft, nontender, nondistended. EXTREMITIES: No pitting edema. EYES: Ophthalmic examination revealed a visual acuity of 20/60 -1 that glared to 20/100 bilaterally. Slit-lamp examination revealed blepharitis with a severe decrease in tear film bilaterally. Conjunctivae, cornea, anterior chamber and iris are within normal limits bilaterally. Lens status demonstrated 3+ nuclear sclerosis and multiple vacuoles bilaterally. Fundus examination revealed a good view with good dilation bilaterally. Optic discs, macula, vessels, periphery and vitreous within normal limits bilaterally. ASSESSMENT AND PLAN: Visually significant cataract, right eye. After risks, benefits, alternatives as well as expectations were delivered to the patient, he elected to go forward with cataract removal. He understands those risks to include but are not limited to infection, bleeding, loss of vision or loss of the eye itself. Secondly, he understands that postoperatively he is likely to require spectacle correction for his best visual acuity. Thirdly, a complete ophthalmic examination was performed and there was not determined to be any other source of vision decline other than that of the cataract. After understanding all risks as well as expectations, he elected to go forward with the procedure as listed above and will be doing so in the near future. Dakotah Bae D.O. [facility] Dictated: 02/03/2019 #[id number] Typed 02/04/2019 #[id number] cc: Dakotah Bae D.O. [facility] Comment on above: Result Comment: Elec tronically Signed By: Dakotah Bae DO\.br\Date and Time Signed: 02/04/19 08:22 EDT Inpatient Patient Summaryon 02-04-2019 Inpatient Patient Summary [facility] Clinical Discharge Instructions PERSON INFORMATION Name: KALYAN HERNANDEZ [facility]LY [facility]#:[id number] PHYSICIANS Admitting Physician: Dakotah Bae DO Attending Physician: Dakotah Bae DO PCP: NONE, XXXX Discharge Diagnosis: Cataract Comment: PATIENT EDUCATION INFORMATION Instructions: LORRAINE- After Surgery Eye (Custom) Medication Leaflets: Follow up: With: Address: When: Dakotah Bae [facility] [address] [place] [address] Business (1) Within 1 to 2 days Type Location Start [facility] Surgery [facility] 02/13/2019 9:30 AM 02/13/2019 9:40 AM Confirmed MEDICATION LIST Comment: Darrell [facility] Main OR PACU II [facility] Main OR PACU II Record PACU Phase II Document Type FT Summary Primary Physician: Dakotah Bae DO Finalized Date/Time: 02/04/19 12:16:11 Pt. Name: KALYNA HERNANDEZ/Sex: 1935 Male Med Rec #: [id number] Physician: Dakotah Bae DO Financial #: [id number] Pt. Type: A Room/Bed: Admit/Disch: 02/04/19 08:34:05 - Institution: Case Times PACU II FT Pre-Care Text: Identifies barriers to communication and implements measures to provide psychological support and determines knowledge level Develops individualized plan of care, and ensures continuity of care Maintains patient's dignity and privacy, and maintains patient confidentiality Identifies and reports philosophical, cultural, and spiritual beliefs and values Identifies individual values and wishes concerning care administers prescribed antibiotic therapy and immunizing agents as ordered, Evaluates postoperative tissue perfusion Implements thermoregulation measures, and monitors body temperature Evaluates postoperative respiratory status Evaluates postoperative cardiac status Evaluates postoperative neurological status Assesses pain control, collaborated in initiating patient-controlled analgesia and implements alternative methods of pain control Verifies allergies, administers prescribed medications and solutions, evaluates response to medications Entry 1 In PACU II 02/04/19 11:35:00 Discharge from PACU 02/04/19 12:15:00 II Outcomes Met? Yes Last Modified By: Rhiannon Espinal RN 02/04/19 12:16:11 Post-Care Text: The patient demonstrates knowledge of the expected response to the operative or invasive procedure The patient's care is consistent with the individualized perioperative plan of care The patient's right to privacy is maintained The patient's value system, lifestyle, ethnicity, and culture are considered, respected, and incorporated into the perioperative plan of care The patient participates in decisions affecting his or her perioperative plan of care. The patient is free from signs and symptoms of infection The patient has wound/tissue perfusion consistent with or improved from baseline levels established preoperatively The patient is at or returning to normothermia at the conclusion of the immediate postoperative period The patient's respiratory function is consistent with or improved from baseline levels established preoperatively The patient's cardiovascular status is consistent with or improved from baseline levels established preoperatively The patient's neurological status is consistent with or improved from baseline levels established preoperatively The patient demonstrates and/or reports adequate pain control throughout the perioperative period The patient received appropriate medication(s), safely administered during the perioperative period Finalized By: Rhiannon Espinal RN Document Signatures Signed By: Rhiannon Espinal RN 02/04/19 12:16 Normal [facility] Patient Education - Texton 0 02-04-2019 Patient Education - Text [place], [place] Dakotah Bae D.O. AFTER SURGERY [right eye] [left eye] RESTRICTIONS FOR SIX WEEKS: (1) No rubbing of eye. (2) Try not to sleep on stomach. (3) Wear eye shield at bedtime for 2 WEEKS. (4) Avoid circumstances which may result in trauma to the eye. (5) You may shower and/or bathe. To wash hair allow water to run down back of the head if possible. (6) For YOUR comfort, wear sunglasses in sunlight as needed. METHOD OF APPLYING EYE MEDICATION: (1) Look up. (2) Pull down lower lid. (NO PRESSURE ON EYE) (3) Apply one drop of medication inside the pocket of lower lid. ON THE DAY OF SURGERY: (1) Wear your shield until you get home and then it can be removed. Reapply the shield at bedtime or at any time you are sleeping. (2) PAIN: use Tylenol 325 mg. every 4 hours as needed. The eye may feel as if there is an eyelash in it. This scratchiness is normal. (3) Start your eye drops when you get home. Besivance ? apply to surgical eye, three more times today. Diclofenac ? apply to surgical eye, four more times today. Prednisolone Acetate ? apply to surgical eye, six times today. Normal [facility] Progress Note-Physicianon Progress Note-Physician Patient: KALYAN HERNANDEZ Age: 83 years Sex: Male : 1935 Associated Diagnoses: None Author: Dakotah aBe DO Postoperative Information Date/ Time: 02/04/19 11:33:00 Preoperative Diagnosis: Senile Cataract - OD . Postoperative Diagnosis: same . Procedure: Cataract Extraction with IOL placement - OD. Anesthesia Method: Local. Performed by: Dakotah Bae DO. Specimens Removed: none . Estimated Blood Loss: 0 ml. Complications: None. Normal [facility] Comment on above: Result Comment: Elec tronically Signed By: Dakotah Bae DO\.br\Date and Time Signed: 02/04/19 11:33 EDT Encounters Encounter Date Encounter Type Care Provider Facility Start: 02-07-2024 End: 02-07-2024 ambulatory [facility] Start: 02-06-2024 End: 02-07-2024 Emergency department patient visit JOY MAYA [facility] Start: 02-06-2024 End: 02-06-2024 Emergency department patient visit [facility] Start: 11-02-2022 End: 11-03-2022 Evaluation and management of inpatient DR PIYUSH VIDALES Facility: Start: 10-17-2022 End: 10-18-2022 ambulatory [facility] Facility[facility] Start: 10-06-2022 End: 10-07-2022 ambulatory [facility] Start: 05-20-2019 End: 05-23-2019 Evaluation and management of inpatient GENTRY VILLARREAL [facility] Start: 05-20-2019 Emergency department patient visit [facility] Start: 04-13-2019 End: 04-16-2019 Evaluation and management of inpatient [facility] Start: 04-13-2019 End: 04-13-2019 Emergency department patient visit [facility] Start: 03-22-2019 End: 03-22-2019 Emergency department patient visit AURELIO L DEV [facility] Procedures Date Procedure Procedure Detail Performing Clinician Start: 05-23-2019 PULSE OXIMETRY, CONTINUOUS SHIRA STRICKLAND Start: 05-23-2019 PULSE OXIMETRY, CONTINUOUS SHIRA STRICKLAND Start: 05-23-2019 MISCELLANEOUS NURSIN G CARE ORDER (SPECIFY) SHIRA STRICKLAND Start: 05-23-2019 Xtrnl ecg & 48 hr re cord scan stor w/r&i SHIRA STRICKLAND Start: 05-23-2019 DISCHARGE PATIENT MARYBETH STRICKLAND Start: 05-23-2019 INITIATE OXYGEN THER APY PROTOCOL SHIRA STRICKLAND Start: 05-23-2019 PULSE OXIMETRY, CONTINUOUS SHIRA STRICKLAND Start: 05-23-2019 Basic metabolic pane l calcium total SHIRA STRICKLAND Start: 05-23-2019 Blood count complete automated SHIRA STRICKLAND Start: 05-23-2019 PULSE OXIMETRY, CONTINUOUS SHIRA STRICKLAND Start: 05-23-2019 CATHETER REMOVAL SHIRA STRICKLAND Start: 05-23-2019 INSERT ACUNA CATHETER Mike STRICKLAND Start: 05-23-2019 PULSE OXIMETRY, CONTINUOUS SHIRA STRICKLAND Start: 05-22-2019 PULSE OXIMETRY, CONTINUOUS SHIRA STRICKLAND Start: 05-22-2019 NOTIFY PHYSICIAN (SPECIFY) SHIRA STRICKLAND Start: 05-22-2019 PULSE OXIMETRY, CONTINUOUS SHIRA STRICKLAND Start: 05-22-2019 PULSE OXIMETRY, CONTINUOUS SHIRA STRICKLAND Start: 05-22-2019 DISCHARGE PATIENT MARYBETH STRICKLAND Start: 05-22-2019 INITIATE OXYGEN THER APY PROTOCOL SHIRA STRICKLAND Start: 05-22-2019 PULSE OXIMETRY, CONTINUOUS SHIRA STRICKLAND Start: 05-22-2019 Basic metabolic pane l calcium total SHIRA STRICKLAND Start: 05-22-2019 PULSE OXIMETRY, CONTINUOUS SHIRA STRICKLAND Start: 05-22-2019 IP CONSULT TO UROLOGY Mike STRICKLAND Start: 05-22-2019 STRAIGHT CATH SHIRA DILLON Start: 05-22-2019 Urnls dip stick/tabl et rgnt auto w/o microscopy SHIRA STRICKLAND Start: 05-22-2019 PULSE OXIMETRY, CONTINUOUS SHIRA STRICKLAND Start: 05-21-2019 PULSE OXIMETRY, CONTINUOUS SHIRA STRICKLAND Start: 05-21-2019 PULSE OXIMETRY, CONTINUOUS SHIRA STRICKLAND Start: 05-21-2019 Xtrnl pt activated e cg record monitor 30 days SHIRA STRICKLAND Start: 05-21-2019 IP CONSULT TO NEUROLOGY SHIRA STRICKLAND Start: 05-21-2019 PULSE OXIMETRY, CONTINUOUS SHIRA STRICKLAND Start: 05-21-2019 Ct angiography head w/contrast/noncontrast SHIRA STRICKLAND Start: 05-21-2019 Ct angiography neck w/contrast/noncontrast SHIRA STRICKLAND Start: 05-21-2019 DIET GENERAL SHIRA ROME Start: 05-21-2019 Mri brain brain stem w/o contrast material SHIRA STRICKLAND Start: 05-21-2019 PULSE OXIMETRY, CONTINUOUS SHIRA STRICKLAND Start: 05-21-2019 INITIATE OXYGEN THER APY PROTOCOL SHIRA STRICKLAND Start: 05-21-2019 Blood count complete auto&auto difrntl wbc SHIRA STRICKLAND Start: 05-21-2019 Blood count complete automated SHIRA STRICKLAND Start: 05-21-2019 Hemoglobin glycosylated a1c SHIRA STRICKLAND Start: 05-21-2019 Lipid panel SHIRA ROME Start: 05-21-2019 NIHSS SHIRA ROME Start: 05-20-2019 HEIGHT AND WEIGHT MARYBETH STRICKLAND Start: 05-20-2019 CONTRA ASPIRIN ARRIVAL SHIRA STRICKLAND Start: 05-20-2019 INITIATE OXYGEN THER APY PROTOCOL SHIRA STRICKLAND Start: 05-20-2019 IP CONSULT TO NEUROSURGERY SHIRA STRICKLAND Start: 05-20-2019 OT EVAL AND TREAT MARYBETH STRICKLAND Start: 05-20-2019 PLACE INTERMITTENT P NEUMATIC COMPRESSION DEVICE SHIRA STRICKLAND Start: 05-20-2019 PROVIDE PATIENT EDUC ATION MATERIALS SHIRA STRICKLAND Start: 05-20-2019 PT EVAL AND TREAT MARYBETH Kirsty ENZO Start: 05-20-2019 REASON FOR NOT SELEC TING ANTILIPEMIC SHIRA STRICKLAND Start: 05-20-2019 ENGINE HEAD REPAIRER EVAL AND TREAT TAY STRICKLAND Start: 05-20-2019 ADVANCE DIET TOLE RATED (NURSING COMMUNICATION) SHIRA STRICKLAND Start: 05-20-2019 FULL CODE SHIRA ROME Start: 05-20-2019 NURSING SWALLOW ASSESSMENT SHIRA STRICKLAND Start: 05-20-2019 TELEMETRY MONITORING JU DITH ENZO Start: 05-20-2019 VITAL SIGNS SHIRA ROME Start: 05-20-2019 PATIENT STATUS (DIRECT) SHIRA STRICKLAND Start: 05-20-2019 Glucose quantitative blood xcpt reagent strip AURELIO MÉNDEZ Start: 05-20-2019 Ct head/brain w/o co ntrast material AURELIO CARONE Start: 04-16-2019 DISCHARGE PATIENT MARYBETH Lofton ENZO Start: 04-16-2019 INITIATE OXYGEN THER APY PROTOCOL SHIRA STRICKLAND Start: 04-16-2019 Comprehensive metabolic panel SHIRA STRICKLAND Start: 04-16-2019 HEMOGLOBIN AND HEMAT OCRIT, BLOOD SHIRA STRICKLAND Start: 04-15-2019 HEMOGLOBIN AND HEMAT OCRIT, BLOOD SHIRA STRICKLAND Start: 04-15-2019 Immunofixj electroph oresis other fluids SHIRA STRICKLAND Start: 04-15-2019 Protein electrop fxj &krystal oth flus concentrati SHIRA STRICKLAND Start: 04-15-2019 Immunofixj electroph oresis serum SHIRA STRICKLAND Start: 04-15-2019 Protein electrophore tic fractj&quantj serum SHIRA STRICKLAND Start: 04-15-2019 PSA screening SHIRA DILLON Start: 04-15-2019 INITIATE OXYGEN THER APY PROTOCOL SHIRA STRICKLAND Start: 04-15-2019 Echo tthrc r-t 2d w/ wom-mode compl spec&colr d SHIRA STRICKLAND Start: 04-15-2019 Blood count complete auto&auto difrntl wbc SHIRA STRICKLAND Start: 04-15-2019 Comprehensive metabolic panel SHIRA STRICKLAND Start: 04-15-2019 INSERT ACUNA CATHETER Mike STRICKLAND Start: 04-15-2019 CATHETER REMOVAL SHIRA STRICKLAND Start: 04-15-2019 Assay of urine sodium Mike STRICKLAND Start: 04-15-2019 Creatinine other source SHIRA STRICKLAND Start: 04-14-2019 Us retroperitoneal r eal time w/image complete SHIRA STRICKLAND Start: 04-14-2019 ELEVATE HEELS OFF OF BED SHIRA STRICKLAND Start: 04-14-2019 HEAD OF BED 60 DEGRE ES OR LESS SHIRA STRICKLAND Start: 04-14-2019 NURSING COMMUNICATION Mike STRICKLAND Start: 04-14-2019 TURN PATIENT SHIRA ROME Start: 04-14-2019 IP CONSULT TO PHYSIC AL MEDICINE REHAB SHIRA STRICKLAND Start: 04-14-2019 Echo tthrc r-t 2d w/ wom-mode compl spec&colr d SHIRA STRICKLAND Start: 04-14-2019 Mra neck w/o contrst material SHIRA STRICKLAND Start: 04-14-2019 Mra head w/o contrst material SHIRA STIRCKLAND Start: 04-14-2019 Mri brain brain stem w/o contrast material SHIRA STRICKLAND Start: 04-14-2019 IP CONSULT TO PRE PRESS MANAGER AL MEDICINE SHIRA STRICKLAND Start: 04-14-2019 TELEMETRY MONITORING GIL STRICKLAND Start: 04-14-2019 Us scrotum & contents Mike STRICKLAND Start: 04-14-2019 Assay of ferritin MARYBETH STRICKLAND Start: 04-14-2019 Assay of free thyroxine SHIRA STRICKLAND Start: 04-14-2019 Assay of thyroid sti mulating hormone tsh SHIRA STRICKLAND Start: 04-14-2019 Blood count complete auto&auto difrntl wbc SHIRA STRICKLAND Start: 04-14-2019 Comprehensive metabolic panel SHIRA STRICKLAND Start: 04-14-2019 Iron binding capacity Mike STRICKLAND Start: 04-14-2019 INITIATE OXYGEN THER APY PROTOCOL SHIRA STRICKLAND Start: 04-14-2019 Lipid panel SHIRA ROME Start: 04-14-2019 IP CONSULT TO UROLOGY Mike STRICKLAND Start: 04-14-2019 Assay of troponin quantitative SHIRA STRICKLAND Start: 04-14-2019 Hemoglobin glycosylated a1c SHIRA STRICKLAND Start: 04-14-2019 DIET CARDIAC SHIRA ROME Start: 04-14-2019 INITIATE OXYGEN THER APY PROTOCOL SHIRA STRICKLAND Start: 04-14-2019 NEURO CHECKS SHIRA ROME Start: 04-14-2019 NURSING SWALLOW ASSESSMENT SHIRA STRICKLAND Start: 04-14-2019 OT EVAL AND TREAT MARYBETH STRICKLAND Start: 04-14-2019 PROVIDE PATIENT EDUC ATION MATERIALS SHIRA FUUESSLER Start: 04-14-2019 PT EVAL AND TREAT MARYBETH IRENESLER Start: 04-14-2019 FULL CODE SHIRA ROME Start: 04-14-2019 NOTIFY PHYSICIAN (SPECIFY) SHIRA STRICKLAND Start: 04-14-2019 PLACE INTERMITTENT P NEUMATIC COMPRESSION DEVICE SHIRA ENZO Start: 04-14-2019 REASON FOR NO CHEMIC AL VTE PROPHYLAXIS SHIRA ENZO Start: 04-14-2019 VITAL SIGNS SHIRA ROME Start: 04-14-2019 PATIENT STATUS (FROM ED OR OR/PROCEDURAL) SHIRA FUUESSLER Start: 04-13-2019 IP CONSULT TO STROKE TEAM SHIRA STRICKLAND Start: 04-13-2019 Ecg routine ecg w/le ast 12 lds w/i&r AURELIO CARONE Start: 04-13-2019 Culture bacterial qu anttative colony count urine AURELIO CARONE Start: 04-13-2019 Urinalysis microscopic only AURELIO CARONE Start: 04-13-2019 Urnls dip stick/tabl et rgnt auto w/o microscopy AURELIO CARONE Start: 04-13-2019 Radiologic exam ches t single view AURELIO CARONE Start: 04-13-2019 Ct head/brain w/o co ntrast material AURELIO CARONE Start: 04-13-2019 TELEMETRY MONITORING HE ATHER CARONE Start: 04-13-2019 Gluc bld gluc mntr d ev cleared fda spec home use AURELIO CARONE Start: 04-13-2019 Glucose quantitative blood xcpt reagent strip AURELIO CARONE Start: 04-13-2019 Blood count complete auto&auto difrntl wbc AURELIO CARONE Start: 04-13-2019 Comprehensive metabolic panel AURELIO CARONE Start: 04-13-2019 Prothrombin time HEATHE R CARONE Start: 03-22-2019 Urnls dip stick/tabl et rgnt auto w/o microscopy AURELIO CARONE Start: 03-22-2019 Ct head/brain w/o co ntrast material AURELIO CARONE Start: 03-22-2019 Assay of troponin quantitative AURELIO CARONE Start: 03-22-2019 Blood count complete automated AURELIO CARONE Start: 03-22-2019 Comprehensive metabolic panel AURELIO CARONE Start: 03-22-2019 Ecg routine ecg w/le ast 12 lds w/i&r AURELIO MÉNDEZ Payers Date Payer Category Payer Medicare [id number] 1935 Unknown [id number] 2.16.8 [id number] 1935 Unknown [id number] 2.16.8 [id number] 1935 Unknown [id number] 2.16.8 [id number] 1935 Unknown [id number] 2.16.8 [id number] 1935 Unknown [id number] 2.16.8 [id number] 1935 Unknown [id number] 2.16.84 0.1.143096.3.579.2.718 1935 Unknown [id number] 2.16.84 0.1.077719.3.579.2.718 1935 Unknown [id number] 2.16.84 [id number] 1935 Unknown [id number] 2.16.8 40.1.783714.3.579.2.1286 1935 Unknown [id number] 2.16.8 [id number] 1935 Unknown [id number] 2.16.8 40.1.279734.3.579.2.1286 1935 Unknown [id number] 2.16.8 40.1.689455.3.579.2.1286 1935 Unknown [id number] 2.16.8 40.1.780261.3.579.2.1286 1935 Unknown [id number] 2.16.8 40.1.259895.3.579.2.1286 History and physical note 10-23-2022 Note Date & Type Note Facility 10-23-2022 Note [id number] 10-20-2022 Note Date & Type Note Facility 10-20-2022 Note [id number] 10-20-2022 Note Date & Type Note Facility 10-20-2022 Note [id number] 10-18-2022 Note Date & Type Note Facility 10-18-2022 Note Education Materials Urology Green Light Laser Prostate Treatment, Care After This sheet gives you information about how to care for yourself after your procedure. Your health care provider may also give you more specific instructions. If you have problems or questions, contact your health care provider. What can I expect after the procedure? After the procedure, it is common to have: ? Swelling and discomfort around your urethra. The opening of the urethra is at the end of the penis. ? Blood in your urine. This should go away after a few days. ? Trouble urinating or sudden need to urinate (urgency). These problems should get better over time. You may continue to have a thin tube (catheter) inserted into your urethra to help drain your urine from your bladder for a few days after the procedure. Follow these instructions at home: Medicines ? Take ngor-bny-tgwyvcm and prescription medicines only as told by your health care provider. ? If you were prescribed an antibiotic medicine, take it as told by your health care provider. Do not stop taking the antibiotic even if you start to feel better. Bathing ? Do not take baths, swim, or use a hot tub until your health care provider approves. Ask your health care provider if you may take showers. You may only be allowed to take sponge baths. Activity ? Do not drive for 24 hours if you were given a medicine to help you relax (sedative) during your procedure. ? Do not drive or use heavy machinery while taking prescription pain medicine. ? Ask your health care provider what activities are safe for you. Most people can return to normal activities within a few days. ? Do not have sex or engage in sexual activity until your health care provider approves. ? Do not lift anything that is heavier than 10 lb (4.5 kg), or the limit that you are told, until your health care provider says that it is safe. General instructions ? If you have a urinary catheter, care for it as told by your health care provider. This may include: ? Washing your hands before and after touching the catheter. ? Emptying your drainage bag when it is ??? full, or emptying it at least 2?3 times a day. ? Keeping the area around the catheter clean and dry. ? Avoiding any bends or breaks in the catheter. ? Keeping air out of the catheter. ? Making sure that the catheter is not placed under water. ? Do not use any products that contain nicotine or tobacco, such as cigarettes and e-cigarettes. If you need help quitting, ask your health care provider. ? Drink enough fluid to keep your urine pale yellow. ? Keep all follow-up visits as told by your health care provider. This is important. ? If you will be going home right after the procedure, plan to have a responsible adult with you for 24 hours. Contact a health care provider if: ? You have trouble: ? Having a bowel movement. ? Getting an erection. ? You have swelling around your urethra and it gets worse. ? You have blood in your urine for more than 2 days after the procedure. ? You have pain or burning when you urinate, or other problems that do not go away or cause discomfort. ? You have problems with your catheter or your catheter is blocked. ? You have a fever. ? You have nausea or you vomit. ? You have swelling in your legs. Get help right away if: ? Your urine has blood clots in it. ? Your urine is dark red. ? You cannot urinate after your catheter is removed. ? You have blood in your stool. ? You have severe pain that does not get better with medicine. ? You have shortness of breath. Summary ? After the procedure, it is common to have swelling and discomfort around your urethra and blood in your urine for a few days. ? Some men may have problems urinating after this procedure. These problems should go away after a few days. If you have pain or burning while urinating, contact your health care provider. ? If you have a catheter after this procedure, care for it as told by your health care provider. ? If you have severe pain, dark red urine, or urine with blood clots, get medical help right away. This information is not intended to replace advice given to you by your health care provider. Make sure you discuss any questions you have with your health care provider. Document Revised: 02/22/2022 Document Reviewed: 07/21/2021 [email or web address] Patient Education ? 2021 [employer]. [facility] Clinical Note 10-18-2022 Note Date & Type Note Facility 10-18-2022 Note [facility] Discharge Summary PERSON INFORMATION Name KALYAN HERNANDEZ Age 87 Years 1935 Sex MALE Language Scottish PCP Shira Strickland CNP Marital Status Single Med Service Ambulatory Surgery Acct# Arrival 10/17/2022 10:12:00 Visit Reason SURGERY - CYSTOSCOPY GREEN LIGHT Acuity LOS 000 24:26 Address: [address] [place] [address] [address] [facility] [id number] Comment: PROVIDER INFORMATION VITALS INFORMATION Vital Sign Triage Latest Temp Oral 36.5 DegC 37.0 DegC Temp Temporal Temp Intravascular Temp Axillary Temp Rectal 02 Sat 99 % 99 % Respiratory Rate 18 br/min 16 br/min Peripheral Pulse Rate 69 bpm 55 bpm Apical Heart Rate Blood Pressure 146 mmHg / 69 mmHg 157 mmHg / 75 mmHg Comment: MEDICAL INFORMATION Allergy Info: No known allergies Medication List: Medications That Were Updated - Follow Below Instructions Other Medications Updated: nystatin topical (nystatin 100,000 units/g topical cream) 1 tim Topical 3 times a day as needed rash. Updated: nystatin topical (nystatin 100,000 units/g topical cream) 1 tim Topical 3 times a day. Medications to Continue That Have Not Changed Other Medications acetaminophen (acetaminophen 325 mg oral capsule) 1 cap(s) Oral Every 6 hours as needed as needed for pain. aspirin (aspirin 81 mg oral delayed release tablet) 1 tab(s) Oral every day. atorvastatin (atorvastatin 80 mg oral tablet) 1 tab(s) Oral every day. bisacodyl (bisacodyl 10 mg rectal suppository) 1 suppository(ies) Per rectum every 72 hours as needed for constipation. escitalopram (escitalopram 20 mg oral tablet) 1 tab(s) Oral every day. ferrous sulfate (ferrous sulfate 325 mg (65 mg elemental iron) oral delayed release tablet) 1 tab(s) Oral twice a day (with meals). finasteride (finasteride 5 mg oral tablet) 1 tab(s) Oral every day. levothyroxine (levothyroxine 50 mcg (0.05 mg) oral capsule) 1 cap(s) Oral every day. magnesium hydroxide (Milk of Magnesia 8% oral suspension) 30 Milliliter Oral once a day (at bedtime) as needed for constipation. ocular lubricant (Artificial Tears ophthalmic solution) 1 Drops Ophthalmic 3 times a day as needed for dry eyes. omeprazole (omeprazole 20 mg oral delayed release capsule) 1 cap(s) Oral every day. polyethylene glycol 3350 (polyethylene glycol 3350 oral powder for reconstitution) 17 gram Oral 2 times a day. dissolve in water before taking. sulfamethoxazole-trimethoprim (sulfamethoxazole-trimethoprim 800 mg-160 mg oral tablet) 4 Milligrams/Kilogram Oral Every 12 hours scheduled time for 5 Days. Dosage expressed as trimethoprim. tamsulosin (tamsulosin 0.4 mg oral capsule) 1 cap(s) Oral every day. Comment: Lab and Radiology Results Laboratory or Other Results This Visit (last charted value for your 10/17/2022 visit) No Laboratory or Other Results This Visit DIET & ACTIVITY Patient Activity Level: Patient Diet: Patient Activity Restrictions: DISCHARGE INFORMATION Discharge Disposition: Discharge Location: DEPART REASON INCOMPLETE INFORMATION PATIENT EDUCATION INFORMATION Instructions: Green Light Laser Prostate Treatment, Care After Follow up: With: Address: When: Chato Mendes MD [address] [place] [address] [place] [phone] DIAGNOSIS 1:BPH with urinary obstruction; Other obstructive and reflux uropathy Comment: PHYS DOC NOTES [facility] Summary Purpose Family History No Family History Records FoundNo Family History Records FoundNo Family History Records FoundNo Family History Records FoundNo Family History Records FoundNo Family History Records FoundNo Family History Records Found Advance Directives No Advanced Directives Records FoundNo Advanced Directives Records FoundNo Advanced Directives Records FoundNo Advanced Directives Records FoundNo Advanced Directives Records FoundNo Advanced Directives Records FoundNo Advanced Directives Records Found Additional Source Comments (unrecognized sect ion and content) No Status Records FoundNo Status Records FoundNo Status Records FoundNo Status Records FoundNo Status Records FoundNo Status Records FoundNo Status Records Found INFORMATION SOURCE (unrecogn ized section and content) DATE CREATED AUTHOR 06/14/2019 [facility] DATE CREATED AUTHOR AUTHOR'S ORGANIZ ATION 07/21/2019 [facility] DATE CREATED AUTHOR AUTHOR'S ORGANIZ ATION 08/06/2019 [facility] DATE CREATED AUTHOR AUTHOR'S ORGANIZ ATION 10/23/2022 [facility] DATE CREATED AUTHOR AUTHOR'S ORGANIZ ATION 11/17/2022 [facility] DATE CREATED AUTHOR AUTHOR'S ORGANIZ ATION 02/08/2024 [facility] DATE CREATED AUTHOR AUTHOR'S ORGANIZ ATION 02/12/2024 [facility] FOR RECORDS PERTAINING TO PATIENTS WHO ARE OR HAVE BEEN ENROLLED IN A CHEMICAL DEPENDENCY/SUBSTANCEABUSE PROGRAM, SOME INFORMATION MAY BE OMITTED. This clinical summary was aggregated from multiple sources. Caution should be exercised in using it in the provision of clinical care. This summary normalizes information from multiple sources, and as a consequence, information in this document may materially change the coding, format and clinical context of patient data. In addition, data may be omitted in some cases. CLINICAL DECISIONS SHOULD BE BASED ON THE PRIMARY CLINICAL RECORDS. [facility] [employer] provides no warranty or guarantee of the accuracy or completeness of information in this document.
[2024-04-10] MEDS: ADACEL DIPH,PERTUSS(ACELL),TET VAC/PF 0.5 ML ADULT SYRINGE IM (10:26)
[2024-04-10 11:15] VITALS: BP 165/73; PULSE 54; O2SAT 98
== END 2024-04-10 11:26 | disposition home or self-care (01) ==
PROVIDERS: Emergency Provider Emergency Medicine Emergency Medical Services
DX: S09.8XXA Other specified injuries of head, initial encounter (principal); S01.01XA Laceration without foreign body of scalp, initial encounter; W06.XXXA Fall from bed, initial encounter; Z23 Encounter for immunization
CPT/HCPCS: 70450; 71101; 90471; 90715; 99284